=== PATIENT | female | born 1950 | race Caucasian/White ===

== ENCOUNTER 2016-07-24 12:48 | Observation (INO) | payer OTHER ==
--- NOTE | 2016-07-24 13:50 | ER Document Report ---
ED Medical Screen (RME) - General Mode of Arrival: Ambulatory Information source: Patient TRAVEL OUTSIDE OF THE [place] IN LAST 30 DAYS: No - HPI Patient complains to provider of: Chest pain Onset: Yesterday Associated Symptoms: Other - see notes above - Related Data Smoking: Non-smoker Frequency of alcohol use: None Drug Abuse: None <FRANCHESCA MARC - Last Filed: 07/24/16 14:38> <DIRK HUANG - Last Filed: 07/24/16 20:53> - General Chief Complaint: Chest Pain Stated Complaint: CHEST PAIN Time Seen by Provider: 07/24/16 13:42 Notes: 65-year-old female with history of atrial fibrillation, pleurisy, diabetes, and hypertension presents to the ED complaining of dull constant chest pain that started yesterday morning. Later in the day, the chest pain resolved, but the patient became 'gassy'. Towards later in the evening, the patient developed mild chest discomfort. She explains that last night her chest pain was exacerbated when laying down and with deep breathing. She woke up this morning with increasing chest pain and decided to come to the ED. Patient denies nausea or vomiting. Patient is on Xarelto. Patient has family history of cardiac disease. (FRANCHESCA MARC) - Related Data Allergies/Adverse Reactions: povidone-iodine [From Betadine] Adverse Reaction (Verified 07/24/16 13:33) soap [From Betadine] Adverse Reaction (Verified 07/24/16 13:33) Past Medical History - General Information source: Patient - Social History Family history: Other - Cardiac disease - Past Medical History Cardiac Medical History: Reports: Hx Atrial Fibrillation, Hx Hypertension, Other - Pleurisy Endocrine Medical History: Reports: Hx Diabetes Mellitus Type 2 Renal/ Medical History: Denies: Hx Peritoneal Dialysis <FRANCHESCA MARC - Last Filed: 07/24/16 14:38> Review of Systems - Review of Systems Constitutional: No symptoms reported EENT: No symptoms reported Cardiovascular: See HPI, Chest pain Respiratory: No symptoms reported Gastrointestinal: No symptoms reported. denies: Nausea, Vomiting Genitourinary: No symptoms reported Female Genitourinary: No symptoms reported Musculoskeletal: No symptoms reported Skin: No symptoms reported Hematologic/Lymphatic: No symptoms reported Neurological/Psychological: No symptoms reported -: Yes All other systems reviewed and negative <FRANCHESCA MARC - Last Filed: 07/24/16 14:38> Physical Exam - General General appearance: Alert In distress: None - Respiratory Respiratory status: No respiratory distress Breath sounds: Normal Chest palpation: Tender - Lower sternum is tender to palpate. Upper sternum is non tender.. No: Normal - Cardiovascular Rhythm: Regular Heart sounds: Normal auscultation Murmur: No Friction rub: No Gallop: None auscultated - Abdominal Inspection: Obese <FRANCHESCA MARC - Last Filed: 07/24/16 14:38> Course - Laboratory Result Diagrams: 07/24/16 18:38 07/24/16 15:55 <DIRK HUANG - Last Filed: 07/24/16 20:53> - Vital Signs Vital signs: Temp Pulse Resp BP Pulse Ox 98.5 F 79 16 134/77 H 97 07/24/16 13:17 07/24/16 13:17 07/24/16 20:06 07/24/16 20:06 07/24/16 20:06 - Laboratory Laboratory results interpreted by me: 07/24/16 07/24/16 15:55 18:38 WBC 15.7 H Absolute Neutrophils 10.4 H Absolute Monocytes 1.7 H ESR 39 H Glucose 116 H Creatine Kinase 25 L C-Reactive Protein 74.8 H Scribe Documentation - Scribe Written by Yumiko:: Yumiko Parrish, 07/24/2016 1448 acting as scribe for :: Urbano <FRANCHESCA MARC - Last Filed: 07/24/16 14:38>
[2016-07-24] MEDS ORDERED: ASPIRIN 81 MG TABLET, CHEWABLE PO ONE (13:51)
--- NOTE | 2016-07-24 16:25 | RADIOLOGY REPORT (SQ) ---
EXAM DESCRIPTION: CHEST SINGLE VIEW COMPLETED DATE/TIME: 07/24/2016 4:13 pm REASON FOR STUDY: chest pain COMPARISON: None. EXAM PARAMETERS: NUMBER OF VIEWS: One view. TECHNIQUE: Single frontal radiographic view of the chest acquired. RADIATION DOSE: NA LIMITATIONS: None. FINDINGS: LUNGS AND PLEURA: No opacities, masses or pneumothorax. No pleural effusion. MEDIASTINUM AND HILAR STRUCTURES: No masses. Contour normal. HEART AND VASCULAR STRUCTURES: Heart normal in size. Normal vasculature. BONES: No acute findings. HARDWARE: None in the chest. OTHER: No other significant finding. IMPRESSION: NO ACUTE RADIOGRAPHIC FINDING IN THE CHEST. TECHNICAL DOCUMENTATION: JOB ID: [id number]
[2016-07-24 16:34] LABS: ALANINE AMINOTRANSFERASE 19 U/L (9-52); ALBUMIN 4.1 g/dL (3.5-5.0); ALKALINE PHOSPHATASE 89 U/L (38-126); ANION GAP 13 (5-19); ASPARTATE AMINO TRANSFERASE 19 U/L (14-36); BILIRUBIN,DIRECT 0.3 mg/dL (0.0-0.4); BILIRUBIN,TOTAL 0.8 mg/dL (0.2-1.3); BLOOD UREA NITROGEN 15 mg/dL (7-20); C-REACTIVE PROTEIN 74.8 mg/L (<10.0); CALCIUM 9.8 mg/dL (8.4-10.2); CARBON DIOXIDE 25 mmol/L (22-30); CHLORIDE 100 mmol/L (98-107); CREATINE KINASE 25 U/L (30-135); CREATININE RESULT 0.74 mg/dL (0.52-1.25); GLUCOSE 116 mg/dL (75-110); POTASSIUM 4.1 mmol/L (3.6-5.0); TOTAL PROTEIN 7.8 g/dL (6.3-8.2)
[2016-07-24 16:45] LABS: CREATINE KINASE MB < 0.22 ng/mL (<4.55); TROPONIN I < 0.012 ng/mL
[2016-07-24] MEDS ORDERED: NITROGLYCERIN 0.4 MG/TAB 25 TAB/BOTTLE SL ONE (17:38)
--- NOTE | 2016-07-24 17:38 | ER Document Report ---
ED General - General Chief Complaint: Chest Pain Stated Complaint: CHEST PAIN Time Seen by Provider: 07/24/16 13:42 Mode of Arrival: Ambulatory Information source: Patient Notes: This is a 65-year-old female with multiple medical problems to include diabetes , hypertension, A. fib who presents with chest pain. She states that her chest pain began last night. She describes it as a dull ache in the center of her chest. No radiation. No shortness of breath. She denies nausea or vomiting. She states the pain is somewhat worse when she lays down and somewhat worse when she takes a deep breath. She denies a prior history of chest pain. She states that she had a stress test many many years ago. Recent fevers or chills. No recent cough or congestion. TRAVEL OUTSIDE OF THE [place] IN LAST 30 DAYS: No - Related Data Allergies/Adverse Reactions: povidone-iodine [From Betadine] Adverse Reaction (Verified 07/24/16 13:33) soap [From Betadine] Adverse Reaction (Verified 07/24/16 13:33) Past Medical History - General Information source: Patient - Social History Smoking Status: Unknown if Ever Smoked Frequency of alcohol use: None Drug Abuse: None Family History: Reviewed & Not Pertinent Patient has suicidal ideation: No Patient has homicidal ideation: No - Past Medical History Cardiac Medical History: Reports: Hx Atrial Fibrillation, Hx Hypertension, Other - Pleurisy Endocrine Medical History: Reports: Hx Diabetes Mellitus Type 2 Renal/ Medical History: Denies: Hx Peritoneal Dialysis Physical Exam - Vital signs Vitals: Temp Pulse Resp BP Pulse Ox 98.5 F 79 20 133/93 H 96 07/24/16 13:17 07/24/16 13:17 07/24/16 13:17 07/24/16 13:17 07/24/16 13:17 - Notes Notes: PHYSICAL EXAMINATION: GENERAL: Well-appearing, morbidly obese adult female, pleasant and conversant and in no acute distress. HEAD: Atraumatic, normocephalic. EYES: Pupils equal round and reactive to light, extraocular movements intact, sclera anicteric, conjunctiva are normal. ENT: nares patent, oropharynx clear without exudates. Moist mucous membranes. NECK: Normal range of motion, supple without lymphadenopathy LUNGS: Breath sounds clear to auscultation bilaterally and equal. No wheezes rales or rhonchi. HEART: Regular rate and rhythm without murmurs ABDOMEN: Soft, nontender, normoactive bowel sounds. No guarding, no rebound. No masses appreciated. EXTREMITIES: 2+ BLE edema, symmetric, pt states baseline NEUROLOGICAL: Cranial nerves grossly intact. Normal speech,no gross focal motor or sensory deficits noted PSYCH: Normal mood, normal affect. SKIN: Warm, Dry, normal turgor Course - Re-evaluation Re-evalutation: 07/24/16 21:36 Patient has 2 negative troponins and her chest pain appears atypical, however she had significant improvement in symptoms with nitroglycerin and has multiple risk factors, so will observe overnight. Discussed with hospitalist, Dr. Diggs. - Vital Signs Vital signs: Temp Pulse Resp BP Pulse Ox 98.5 F 79 20 140/72 H 96 07/24/16 22:50 07/24/16 13:17 07/24/16 22:41 07/24/16 22:41 07/24/16 22:41 - Laboratory Result Diagrams: 07/24/16 18:38 07/24/16 15:55 Laboratory results interpreted by me: 07/24/16 07/24/16 15:55 18:38 WBC 15.7 H Absolute Neutrophils 10.4 H Absolute Monocytes 1.7 H ESR 39 H Glucose 116 H Creatine Kinase 25 L C-Reactive Protein 74.8 H - Diagnostic Test Radiology reviewed: Reports reviewed - CXR: no acute process Discharge - Discharge Clinical Impression: Chest pain Qualifiers: Chest pain type: unspecified Qualified Code(s): R07.9 - Chest pain, unspecified Condition: Stable Disposition: ADMITTED OBSERVATION Admitting Provider: Hospitalist - Dr. Diggs Unit Admitted: Telemetry
[2016-07-24] MEDS ORDERED: NITROGLYCERIN 0.4 MG/TAB 25 TAB/BOTTLE SL PRN (18:20)
[2016-07-24 19:03] LABS: ABSOLUTE BASOPHILS # (AUTO) 0.1 10^3/uL (0.0-0.2); ABSOLUTE EOSINOPHILS # (AUTO) 0.1 10^3/uL (0.0-0.6); ABSOLUTE LYMPHOCYTES (AUTO) 3.3 10^3/uL (0.5-4.7); ABSOLUTE MONOCYTES (AUTO) 1.7 10^3/uL (0.1-1.4); ABSOLUTE NEUT (AUTO) 10.4 10^3/uL (1.7-8.2); BASOPHILS % (AUTO) 0.7 % (0-2); EOSINOPHILS % (AUTO) 0.4 % (0-6); HEMATOCRIT 42.3 % (36.0-47.0); HEMOGLOBIN 13.7 g/dL (12.0-15.5); HGB HCT DIFFERENCE -1.2; LYMPHOCYTES % (AUTO) 21.2 % (13-45); MEAN CORPUSCULAR HEMOGLOBIN 31.1 pg (27.0-33.4); MEAN CORPUSCULAR HGB CONC 32.5 g/dL (32.0-36.0); MEAN CORPUSCULAR VOLUME 96 fl (80-97); MONOCYTES % (AUTO) 10.9 % (3-13); RED CELL DISTRIBUTION WIDTH 13.5 % (11.5-14.0); SEGMENTED NEUTROPHILS % (AUTO) 66.8 % (42-78); WHITE BLOOD COUNT 15.7 10^3/uL (4.0-10.5)
[2016-07-24 19:48] LABS: ERYTHROCYTE SEDIMENTATION RATE 39 mm/hr (0-30)
[2016-07-24] MEDS ORDERED: MORPHINE SULFATE 10 MG/ML INJ IV ONE (21:32)
[2016-07-25] MEDS ORDERED: DEXTROSE 40% GEL 15 GM TUBE PO PRN ×2 (02:37)
[2016-07-25] MEDS ORDERED: DEXTROSE 50%-WATER 25 GM/50 ML DISP.SYRIN IV PRN ×2 (02:37)
[2016-07-25] MEDS ORDERED: INSULIN LISPRO 100 UNIT/ML 3 ML VIAL SUBCUT PRN (02:37)
[2016-07-25] MEDS ORDERED: GLUCAGON,HUMAN RECOMB 1 MG INJ IM PRN (02:37)
[2016-07-25] MEDS ORDERED: MAG HYDROX/AL HYDROX/SIMETH SUSP 30 ML UDCUP PO PRN (02:39)
[2016-07-25] MEDS ORDERED: ACETAMINOPHEN 325 MG TABLET PO PRN (02:44)
--- NOTE | 2016-07-25 03:00 | PDOC H&P ---
History of Present Illness Admission Date/PCP: 07/24/16 21:[address] Adeel [facility]/EP Dr. Martino Patient complains of: chest pain History of Present Illness: ANNMARIE ATKINS is a 65 year old morbidly obese [id number] diabetic female, also with underlying steroid-dependent arthritis, hypertension, paroxysmal atrial fibrillation, on Xarelto for same, and gout who presents to the emergency room for evaluation of above complaint. Patient has been discussed with emergency room physician who evaluated the patient. She describes approximately a 36-48 hour history of mild dull aching substernal central chest discomfort, without radiation or shortness of breath. Pain seems to increase with deep breathing and with certain movements, particularly if she lays on her side. She did achieve some relief with a single sublingual nitroglycerin. She has had no associated nausea vomiting, fever or chills, diarrhea or dysuria. No recent cough or congestion States she had similar discomfort when she had pleurisy as a child. No previous myocardial infarction or congestive heart failure. No history of pulmonary embolus or DVT. No recent long trip with prolonged inactivity, or unusual lower extremity swelling or tenderness. Negative stress test many years ago. Currently resting quietly, still with the above-noted dull chest discomfort. Laboratory results are listed in [employer] and are reviewed. X-ray summary results are listed below, with full report(s) reviewed. . EKGs reviewed. No prior tracings available for comparison. Social history/personal habits: . Lives alone. 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 No use of alcohol tobacco or illicit drugs. Allergies/adverse reactions are listed in [employer] and are reviewed. Home medications initially autopopulated into [employer] may not accurately reflect patient's true medications, dosages, and/or frequencies. biomedical engineering technologist to reconcile medications. Unfortunately, patient not certain of all medications/dosages/frequencies. REVIEW OF SYSTEMS: Constitutional: No fever or chills. Eyes: Glasses ENT: No swallowing problems or complaints. Denies hearing loss. Pulmonary: No current complaints. Cardiovascular: See history and present illness. Gastrointestinal: No current complaints, including nausea or vomiting. Skin: No current complaints, including rashes. Hematologic: Easy bruising. Neurologic: No current complaints, including numbness or tingling. Musculoskeletal: Joint pain from arthritis. Psychiatric: Denies anxiety or depression. Endocrine: No current complaints, including polyuria. Genitourinary: No current complaints, including dysuria. PHYSICAL EXAMINATION: 5 feet 4 inches tall. 151 kg. BMI 57.1 kg/m.Temperature 98.5. Blood pressure 140/72. Pulse 79 and regular. Respirations are 20 and unlabored. 96 % saturation on room air. Morbidly obese otherwise well-developed female appearing a bit younger than her stated age. Pleasant awake alert and cooperative. Appears to feel a bit under the weather, so to speak. Mildly anxious, without agitation. Female floor nurse Domenic is present. Skin is warm and dry. No grossly obvious evidence of rash in areas of skin examined. No subcutaneous nodules palpated. ENT: Hearing grossly normal to normal conversation. Tongue midline on protrusion pink and slightly tacky. Eyes: No scleral icterus. Pupils equal and reactive to light at 4 mm. [place] conjunctivae. Neck is supple and nontender to gentle active range of motion and palpation. Midline trachea. No palpable thyroid nodule mass enlargement or tenderness. Lymphatic: No palpable cervical or clavicular nodes. Neck and lymphatic exams limited by patient body habitus. Psychiatric: Reasonable insight into acute and chronic medical issues. Oriented to time location and why here. Lungs: Auscultation reveals clear and equal breath sounds bilaterally. No use of accessory respiratory muscles. Cardiovascular: Heart regular rate and rhythm, without gallop murmur or rub. No carotid or abdominal aortic bruits. No ankle or pedal edema. Faintly palpable posterior tibial pulses. Abdomen:soft quite obese nontender with positive bowel sounds. Unable to adequately evaluate abdomen for masses or organomegaly due to body habitus. Compression of upper abdomen has no effect on her chest discomfort. However, compression of her central sternum does seem to exacerbate her mild chest discomfort, along with deep breathing, and when patient moved from a seated to a supine position. Extremities: Feet are warm and dry. No calf tenderness to compression. No grossly obvious visual evidence of calf swelling. Gentle manipulation of lower extremities fails to reveal any obvious evidence of injury or instability to knees hips or ankles. Neurologic: Moves upper extremities grossly normally. Patellar reflexes absent. Absent Babinski. Light touch is intact at feet. Dorsiflexion and plantarflexion of feet 5 / 5 and symmetric. Past Medical History Cardiac Medical History: Reports: Atrial Fibrillation, Hypertension Denies: Congestive Heart Failure, DVT, Myocardial Infarction, Hyperlipidema, Pulmonary Embolism Pulmonary Medical History: Reports: Other - Pleurisy as a child Denies: Asthma, Chronic Obstructive Pulmonary Disease (COPD), Sleep Apnea EENT Medical History: Reports: Eyes - Glasses Denies: Ears, Throat Neurological Medical History: Denies: Hemorrhagic CVA, Ischemic CVA, Seizures Endocrine Medical History: Reports: Diabetes Mellitus Type 2 Denies: Hyperthyroidism, Hypothyroidism Renal/ Medical History: Reports: None GI Medical History: Denies: Cirrhosis, Gastroesophageal Reflux Disease, Hepatitis, Peptic Ulcer Disease Musculoskeltal Medical History: Reports: Arthritis - Steroid-dependent, Gout Skin Medical History: Reports: None Psychiatric Medical History: Denies: Alcohol Dependency, Depression, General Anxiety Disorder, Substance Abuse, Tobacco Dependency Hematology: Reports: Other - Easy bruising Infectious Medical History: Denies: Clostridium Difficile, Hepatitis B, Hepatitis C, Methicillin- Resistant Staph Aureus Past Surgical History Past Surgical History: Reports: Cholecystectomy Social History Information Source: Patient, Emergency Med Personnel, [facility] Records Lives with: Alone Smoking Status: Unknown if Ever Smoked Frequency of Alcohol Use: None Hx Recreational Drug Use: No Drugs: None Hx Prescription Drug Abuse: No - Advance Directive Resuscitation Status: Full Code Surrogate healthcare decision maker:: Friends Family History Family History: Reviewed & Not Pertinent Parental Family History Reviewed: Yes - Father of old age; mother of NH at 55; rheumatic fever as child. Children Family History Reviewed: NA Sibling(s) Family History Reviewed.: Yes - Uncertain health status Medication/Allergy Home Medications: Cyclobenzaprine HCl [Flexeril 10 mg Tablet] 10 mg PO Q8HP PRN #5 tablet Digoxin 125 mcg PO DAILY 07/25/16 Diltiazem HCl [Diltiazem 24Hr ER] 180 mg PO BID 07/25/16 Febuxostat [Uloric 80 mg Tablet] 80 mg PO QPM 07/25/16 Folic Acid 1 mg PO DAILY 07/25/16 Furosemide 20 mg PO DAILY 07/25/16 Magnesium Oxide 400 mg PO QPM 07/25/16 Metformin HCl 500 mg PO BID 07/25/16 Potassium Chloride [Klor-Con M20] 20 meq PO QPM 07/25/16 Prednisone 15 mg PO DAILY 07/25/16 Rivaroxaban [Xarelto] 20 mg PO QPM 07/25/16 Sotalol HCl [Sotalol] 160 mg PO BID 07/25/16 Tramadol HCl 50 mg PO BID 07/25/16 Allergies/Adverse Reactions: povidone-iodine [From Betadine] Adverse Reaction (Verified 07/24/16 13:33) soap [From Betadine] Adverse Reaction (Verified 07/24/16 13:33) Physical Exam Vital Signs: Temp Pulse Resp BP Pulse Ox 98.5 F 108 H 20 140/72 H 96 07/24/16 22:50 07/25/16 02:27 07/24/16 22:41 07/24/16 22:41 07/24/16 22:41 Results Impressions: Chest X-Ray 07/24/16 13:51 IMPRESSION: NO ACUTE RADIOGRAPHIC FINDING IN THE CHEST. Assessment & Plan - Diagnosis (1) Elevated C-reactive protein (CRP) Is this a current diagnosis for this admission?: Yes (2) Elevated erythrocyte sedimentation rate Is this a current diagnosis for this admission?: Yes (3) Precordial chest pain Is this a current diagnosis for this admission?: YesPlan: Likely this is musculoskeletal in origin, but with her multiple risk factors, Patient will be placed in observation bed under chest pain protocol. Patient understands to notify staff should chest pain change, in particular character or location of pain. Serial troponin . Repeat EKG. lipid panel. I have strongly encouraged patient to be careful getting out of bed, to avoid a fall with injury. Knee high SCDs for DVT prophylaxis.; With patient on Xarelto, no need for Lovenox or heparin. Impression and plans were discussed with patient, who concurs. Time spent in evaluation and management of patient: 67 minutes. (4) Anticoagulated Is this a current diagnosis for this admission?: YesPlan: Resume home medications as appropriate once these have been determined and reviewed. (5) Arthritis Is this a current diagnosis for this admission?: YesPlan: Resume home medications as appropriate once these have been determined and reviewed. (6) Diabetes mellitus type 2 in obese Is this a current diagnosis for this admission?: YesPlan: Diabetic cardiac diet. Accu-Cheks with appropriate sliding scale coverage. Resume home medications as appropriate once these have been determined and reviewed. (7) Gout Qualifiers: Gout site: unspecified site Gout etiology: unspecified cause Chronicity: chronic Presence of tophus: without tophus Qualified Code (s): M1A.9XX0 - Chronic gout, unspecified, without tophus (tophi) Is this a current diagnosis for this admission?: YesPlan: Resume home medications as appropriate once these have been determined and reviewed. (8) HTN (hypertension) Qualifiers: Hypertension type: essential hypertension Qualified Code(s): I10 - Essential (primary) hypertension Is this a current diagnosis for this admission?: YesPlan: Resume home medications as appropriate once these have been determined and reviewed. (9) Paroxysmal atrial fibrillation Is this a current diagnosis for this admission?: YesPlan: Resume home medications as appropriate once these have been determined and reviewed. (10) Steroid dependent Is this a current diagnosis for this admission?: YesPlan: Resume home medications as appropriate once these have been determined and reviewed.
[2016-07-25 06:00] LABS: APPEARANCE,URINE SLIGHTLY-CLOUDY; BILIRUBIN,URINE NEGATIVE (NEGATIVE); GLUCOSE, URINE NEGATIVE (NEGATIVE); KETONES,URINE NEGATIVE (NEGATIVE); LEUKOCYTE ESTERASE,URINE SMALL (NEGATIVE); NITRITE,URINE POSITIVE (NEGATIVE); PROTEIN,URINE NEGATIVE (NEGATIVE); URINE SPECIFIC GRAVITY 1.019; UROBILINOGEN,URINE NEGATIVE mg/dL (<2.0)
--- NOTE | 2016-07-25 08:30 | EKG REPORT ---
SEVERITY:- ABNORMAL ECG - SINUS RHYTHM LEFT ANTERIOR FASCICULAR BLOCK : Confirmed by: Krupa Zamorano 25-Jul-2016 08:29:37
--- NOTE | 2016-07-25 08:30 | EKG REPORT ---
SEVERITY:- ABNORMAL ECG - SINUS RHYTHM PROBABLE LEFT ATRIAL ABNORMALITY LEFT VENTRICULAR HYPERTROPHY BORDERLINE ST ELEVATION, INFERIOR LEADS : Confirmed by: Krupa Zamorano 25-Jul-2016 08:29:53
--- NOTE | 2016-07-25 08:30 | EKG REPORT ---
SEVERITY:- ABNORMAL ECG - ATRIAL FIBRILLATION, V-RATE 113-181 BORDERLINE LEFT AXIS DEVIATION NONSPECIFIC T ABNORMALITIES, LATERAL LEADS PROLONGED QT INTERVAL : Confirmed by: Krupa Zamorano 25-Jul-2016 08:29:30
[2016-07-25 08:52] LABS: ABSOLUTE BASOPHILS # (AUTO) 0.1 10^3/uL (0.0-0.2); ABSOLUTE EOSINOPHILS # (AUTO) 0.2 10^3/uL (0.0-0.6); ABSOLUTE LYMPHOCYTES (AUTO) 3.1 10^3/uL (0.5-4.7); ABSOLUTE MONOCYTES (AUTO) 1.2 10^3/uL (0.1-1.4); ABSOLUTE NEUT (AUTO) 8.1 10^3/uL (1.7-8.2); BASOPHILS % (AUTO) 0.7 % (0-2); EOSINOPHILS % (AUTO) 1.6 % (0-6); HEMATOCRIT 40.5 % (36.0-47.0); HEMOGLOBIN 13.4 g/dL (12.0-15.5); HGB HCT DIFFERENCE -0.3; LYMPHOCYTES % (AUTO) 24.1 % (13-45); MEAN CORPUSCULAR HEMOGLOBIN 31.3 pg (27.0-33.4); MEAN CORPUSCULAR VOLUME 95 fl (80-97); MONOCYTES % (AUTO) 9.3 % (3-13); RED BLOOD COUNT 4.28 10^6/uL (3.72-5.28); RED CELL DISTRIBUTION WIDTH 13.9 % (11.5-14.0); SEGMENTED NEUTROPHILS % (AUTO) 64.3 % (42-78); WHITE BLOOD COUNT 12.7 10^3/uL (4.0-10.5)
[2016-07-25 09:02] LABS: CHOLESTEROL 161.64 mg/dL (0-200); Direct HDL 44 mg/dL (>40); TRIGLYCERIDES 207 mg/dL (<150)
[2016-07-25 09:13] LABS: DIRECT LDL 72 mg/dL (<100)
[2016-07-25 09:15] LABS: VLDL CHOLESTEROL 41.4 mg/dL (10-31)
[2016-07-25] MEDS ORDERED: ASPIRIN 81 MG TABLET, ENT COATED PO SCH (10:00)
[2016-07-25] MEDS ORDERED: DOCUSATE SODIUM 100 MG CAPSULE PO SCH (10:00)
[2016-07-25] MEDS ORDERED: CYCLOBENZAPRINE HCL 10 MG TABLET PO PRN (10:14)
[2016-07-25] MEDS ORDERED: (PENDING PHARMACY ID) (Diltiazem Hcl [Diltiazem 24hr Er] 180 MG) PO SCH (10:15)
[2016-07-25] MEDS ORDERED: DILTIAZEM HCL 180 MG CAPSULE.CR PO ONE (11:00)
[2016-07-25] MEDS ORDERED: FUROSEMIDE 20 MG TABLET PO ONE (11:00)
[2016-07-25] MEDS ORDERED: DIGOXIN 0.125 MG TABLET PO ONE (11:00)
[2016-07-25] MEDS ORDERED: SOTALOL HCL 80 MG TABLET PO ONE (11:00)
[2016-07-25 11:44] VITALS: BP 106/68
--- NOTE | 2016-07-25 16:54 | DISCHARGE SUMMARY E ---
Discharge Summary NAME: ANNMARIE ATKINS : 1950 AGE: 65Y ADMITTED: 07/25/2016 DISCHARGED: 07/25/2016 CODE STATUS: FULL CODE. PRIMARY CARE PROVIDER: Dr. Adeel Gil OUTPATIENT JEWELRY INTERNSHIP: Dr. Martino DISCHARGE DIAGNOSES: 1. Chest pain, most likely musculoskeletal in origin. 2. Chronic atrial fibrillation. 3. Diabetes mellitus, type 2. 4. Chronic anticoagulation. 5. Hypertension. 6. Steroid dependent osteoarthritis. DISCHARGE MEDICATIONS: 1. Flexeril 10 mg p.o. q.8 h. p.r.n., 5 tablets, 0 refills. 2. Digoxin 125 mcg p.o. daily. 3. Diltiazem ER 180 mg p.o. b.i.d. 5. Uloric 80 mg p.o. q.p.m. 6. Folic acid 1 mg p.o. daily. 7. Lasix 20 mg p.o. daily. 8. Magnesium oxide 400 mg p.o. q.p.m. 9. Metformin 500 mg p.o. b.i.d. 10. Potassium chloride 20 mEq p.o. q.p.m. 11. Prednisone 50 mg p.o. daily. 12. Xarelto 20 mg p.o. q.p.m. 13. Sotalol 160 mg p.o. b.i.d. 14. Tramadol 50 mg p.o. b.i.d. DIET: Heart healthy. ACTIVITY: As tolerated. A note has been provided for the patient to return to work on Friday. DIAGNOSTICS: Lab values are as follows: Hematology obtained on 07/25/2016: WBC 12.7, hemoglobin 13.4, hematocrit 40.5, platelet count 365,000. Chemistry obtained on 07/25/2016: Sodium 138, potassium 4.1, chloride 100, carbon dioxide 25, BUN 15, creatinine 0.74, glucose 116, calcium 9.8, bilirubin 0.8, AST 19, ALT 19, alkaline phosphatase 89, CK 25, CK-MB 0.22, troponin 0.012, C-reactive protein 74, total protein 7.8, albumin 4.1, triglycerides 207, cholesterol 161, LDL 72, VLDL 41, HDL 44. Urinalysis obtained on 07/25/2016: Color yellow, appearance slightly cloudy, , specific gravity 1.019, protein negative, glucose negative, ketone negative, occult blood small, nitrate positive, bilirubin negative, urobilinogen negative, leukocyte esterase small, wbc's 30. Toxicology obtained on 07/25/2016: Dig ox is 0.74. Chest x-ray obtained on 07/24/2016 reveals no acute radiographic findings of the chest. PHYSICAL EXAMINATION: GENERAL: On examination the patient is a well-developed, well-nourished, 65-year-old female who is awake, alert and oriented to person, place, time, and situation. She is verbal, conversational, ambulatory, does not appear to be in any acute distress. VITAL SIGNS: As follows: Temperature is 98.7, pulse 109, respirations 20, blood pressure 106/68, oxygen saturation is 100% on room air. SKIN: Warm and dry. No rash. Not diaphoretic. HEENT: Pupils equal, round and reactive to light and accommodation. Conjunctivae pink. NECK: There is no JVP. CARDIOVASCULAR: Heart is irregularly irregular. There is no rub. CHEST: Diminished, clear, symmetrical. ABDOMEN: Obese, soft. Bowel sounds present. BACK: No CVA tenderness, sacral edema. EXTREMITIES: No clubbing, cyanosis, or edema. PSYCHIATRIC: Appropriate affect. Pleasant mood. HISTORY OF PRESENT ILLNESS: The patient is a 65-year-old morbidly obese female with a past medical history of diabetes mellitus type 2, as well as steroid dependence. The patient presented to the emergency department with a chief complaint of chest pain. The patient described a 36-48 hour history of mild, dull, aching, substernal, central chest discomfort without radiation or shortness of breath. Patient seems to increase with deep breathing and with certain movements, particularly if she lies on her side. The patient states that her pain completely resolved with morphine. The patient had no associated nausea, vomiting, fever, chills, diarrhea, dysuria, no recent cough, congestion. The patient stated that she felt her symptoms were similar to when she had pleurisy as a child. The patient denied any myocardial infarction or CHF. No history of pulmonary embolism. The patient states she is compliant with all of her medications, including her anticoagulation. The patient is followed by Cardiology due to her atrial fibrillation and the patient was referred to the hospitalist for observation and management. HOSPITAL COURSE: Patient was observed in continuous telemetry unit. Serial cardiac enzymes were obtained, all of which were nonsuggestive. The patient remained afebrile. Blood pressures in a good range. The patient had no evidence on the ekg monitor tech that were outside of her typical AFib, other than some tachycardia. The patient also had no replication of symptoms. The patient feels that her pain was positional and felt that she probably slept wrong the night before. The patient responded to muscle relaxer. During this time, the patient was encouraged not to use her Ultram, given the muscle relaxer, and therefore, the patient is quite eager for discharge. DISCHARGE PLANNING: The patient is advised to follow up with her surgical technologist, Dr. Martino, within 1-2 weeks for hospital followup. TOTAL TIME SPENT: Time spent on this discharge including assessment, plan, physical examination, patient education, and significant review of records is 45 minutes. DICTATING PHYSICIAN: ROAUL DAWSON NP [id number] PHY#: [id number] ID: [id number] JOB#: [id number] ACCT: [id number] cc:JONATHAN MAHAN M.D. RAOUL DAWSON NP > MTDD
[2016-07-25] MEDS ORDERED: MAGNESIUM OXIDE 400 MG TABLET PO SCH (18:00)
[2016-07-25] MEDS ORDERED: POTASSIUM CHLORIDE 10 MEQ TABLET.SA PO SCH (18:00)
[2016-07-25] MEDS ORDERED: METFORMIN HCL 500 MG TABLET PO SCH (18:00)
[2016-07-25] MEDS ORDERED: RIVAROXABAN 10 MG TABLET PO SCH (18:00)
[2016-07-25] MEDS ORDERED: (PENDING PHARMACY ID) (Potassium Chloride [Klor-Con M20] 20 MEQ) PO SCH (18:00)
[2016-07-25] MEDS ORDERED: FEBUXOSTAT 80 MG TABLET PO SCH (18:00)
[2016-07-25] MEDS ORDERED: TRAMADOL HCL 50 MG TABLET PO SCH (22:00)
[2016-07-25] MEDS ORDERED: DILTIAZEM HCL 180 MG CAPSULE.CR PO SCH (22:00)
[2016-07-25] MEDS ORDERED: SOTALOL HCL 80 MG TABLET PO SCH (22:00)
[2016-07-26] MEDS ORDERED: FUROSEMIDE 20 MG TABLET PO SCH (10:00)
[2016-07-26] MEDS ORDERED: FOLIC ACID 1 MG TABLET PO SCH (10:00)
[2016-07-26] MEDS ORDERED: PREDNISONE 10 MG TABLET PO SCH (10:00)
[2016-07-26] MEDS ORDERED: DIGOXIN 0.125 MG TABLET PO SCH (10:00)
== END 2016-07-25 14:01 | disposition home or self-care (01) ==
LOC: ER 12:48 → EH 21:42 → UNDOADMOB 21:42 → EH 23:25 → 5 23:25 → EH 07-25 02:39 → 5 07-25 02:39
PROVIDERS: ADMIT Family Medicine; ATTEND Family Medicine
DX: R07.2 Precordial pain (principal); I48.2 Chronic atrial fibrillation; E11.9 Type 2 diabetes mellitus without complications; Z79.01 Long term (current) use of anticoagulants; I10 Essential (primary) hypertension; M19.90 Unspecified osteoarthritis, unspecified site; F19.20 Other psychoactive substance dependence, uncomplicated; E66.01 Morbid (severe) obesity due to excess calories; M10.9 Gout, unspecified; R70.0 Elevated erythrocyte sedimentation rate; R79.82 Elevated C-reactive protein (CRP); M1A.9XX0 Chronic gout, unspecified, without tophus (tophi); R60.0 Localized edema; Z87.09 Personal history of other diseases of the respiratory system; Z68.43 Body mass index [BMI] 50.0-59.9, adult; Z90.49 Acquired absence of other specified parts of digestive tract; Z82.49 Family history of ischemic heart disease and other diseases of the circulatory system; Z79.899 Other long term (current) drug therapy; Z79.84 Long term (current) use of oral hypoglycemic drugs
CPT/HCPCS: 93005 ×2; 99285; 96374; 36415 ×2; 82553; 82962; 82550; 80162; 85025 ×2; 85652; 86140; 80053; 81001; 84484 ×2; 80061; 71010; 93010 ×2; G0378; J3490 ×2; J2270

== ENCOUNTER 2019-08-04 12:43 | Inpatient (IN) | payer OTHER, MEDICARE ==
--- NOTE | 2019-08-04 13:37 | ER Document Report ---
ED Medical Screen (RME) - General Chief Complaint: Edema Stated Complaint: GENERAL WEAKNESS Time Seen by Provider: 08/04/19 13:33 Notes: This 68-year-old female presents to the emergency room today stating that she had swelling to her lower extremities and a large protrusion from her labia TRAVEL OUTSIDE OF THE [place] IN LAST 30 DAYS: No - Related Data Allergies/Adverse Reactions: digoxin Allergy (Verified 08/04/19 13:30) spironolactone Allergy (Verified 08/04/19 13:30) povidone-iodine [From Betadine] Adverse Reaction (Verified 07/24/16 13:33) soap [From Betadine] Adverse Reaction (Verified 07/24/16 13:33) Past Medical History - Social History Family history: Other - Cardiac disease - Past Medical History Cardiac Medical History: Reports: Hx Atrial Fibrillation, Hx Hypertension Denies: Hx Congestive Heart Failure, Hx DVT, Hx Heart Attack, Hx Hypercho lesterolemia, Hx Pulmonary Embolism Pulmonary Medical History: Denies: Hx Asthma, Hx COPD, Hx Sleep Apnea Neurological Medical History: Denies: Hx Seizures Endocrine Medical History: Reports: Hx Diabetes Mellitus Type 2. Denies: Hx Hyperthyroidism, Hx Hypothyroidism Renal/ Medical History: Denies: Hx Peritoneal Dialysis GI Medical History: Denies: Hx Cirrhosis, Hx Gastroesophageal Reflux Disease, Hx Hepatitis Musculoskeltal Medical History: Reports Hx Arthritis - Steroid-dependent, Reports Hx Gout Psychiatric Medical History: Denies: Hx Depression Infectious Medical History: Denies: Hx C-Diff, Hx Hepatitis, Hx MRSA Past Surgical History: Reports: Hx Cholecystectomy Physical Exam - Vital signs Vitals: Temp Pulse Resp BP Pulse Ox 98.1 F 72 20 131/53 H 94 08/04/19 13:03 08/04/19 13:03 08/04/19 13:03 08/04/19 13:03 08/04/19 13:03 Course - Vital Signs Vital signs: Temp Pulse Resp BP Pulse Ox 98.1 F 72 20 131/53 H 94 08/04/19 13:03 08/04/19 13:03 08/04/19 13:03 08/04/19 13:03 08/04/19 13:03
--- NOTE | 2019-08-04 15:08 | ER Document Report ---
ED General - General Chief Complaint: Edema Stated Complaint: GENERAL WEAKNESS Time Seen by Provider: 08/04/19 13:33 Mode of Arrival: Medic Information source: Patient Notes: Patient presents complaining of bilateral lower extremity edema for the past 5 days. Patient states she has had weeping wounds to the legs for the past 5 days as well. Patient also reports generalized decrease in strength and weakness. Patient states that she was attempting to ambulate to the bathroom and due to he r increased weakness she was concerned she may fall. Patient states she eased herself to the floor but after she was on the ground she was not able to get up. Patient states that on the floor she was incontinent of urine and stool that was a diarrhea bowel movement. Patient denies any fever. Patient states that she has had swelling to her labia for the past month that has gradually been getting larger. Patient also reports erythema to the bilateral lower extremities that started today. Patient states typically she does not have any difficulty in ambulating. Patient is concerned about her ability to care for herself at home. TRAVEL OUTSIDE OF THE [place] IN LAST 30 DAYS: No - HPI Onset: Other - 5 days Onset/Duration: Worse Quality of pain: Achy Pain Level: 3 Associated symptoms: Diarrhea. denies: Body/muscle aches, Chest pain, Nonproductive cough, Productive cough, Fever, Nausea, Vomiting, Shortness of breath Exacerbated by: Movement Relieved by: Denies Similar symptoms previously: No Recently seen / treated by doctor: No - Related Data Allergies/Adverse Reactions: digoxin Allergy (Verified 08/04/19 13:30) spironolactone Allergy (Verified 08/04/19 13:30) povidone-iodine [From Betadine] Adverse Reaction (Verified 07/24/16 13:33) soap [From Betadine] Adverse Reaction (Verified 07/24/16 13:33) Past Medical History - General Information source: Patient - Social History Smoking Status: Never Smoker Frequency of alcohol use: None Drug Abuse: None Lives with: Alone Family History: Reviewed & Not Pertinent Patient has homicidal ideation: No - Past Medical History Cardiac Medical History: Reports: Hx Atrial Fibrillation, Hx Hypertension Denies: Hx Congestive Heart Failure, Hx DVT, Hx Heart Attack, Hx Hypercholesterolemia, Hx Pulmonary Embolism Pulmonary Medical History: Denies: Hx Asthma, Hx COPD, Hx Sleep Apnea Neurological Medical History: Denies: Hx Seizures Endocrine Medical History: Reports: Hx Diabetes Mellitus Type 2. Denies: Hx Hyperthyroidism, Hx Hypothyroidism Renal/ Medical History: Denies: Hx Peritoneal Dialysis GI Medical History: Denies: Hx Cirrhosis, Hx Gastroesophageal Reflux Disease, Hx Hepatitis Musculoskeletal Medical History: Reports Hx Arthritis - Steroid-dependent, Reports Hx Gout Psychiatric Medical History: Denies: Hx Depression Infectious Medical History: Denies: Hx C-Diff, Hx Hepatitis, Hx MRSA Past Surgical History: Reports: Hx Cholecystectomy Review of Systems - Review of Systems Constitutional: Weakness. denies: Fever EENT: No symptoms reported Cardiovascular: No symptoms reported. denies: Chest pain, Dyspnea, Syncope Respiratory: No symptoms reported. denies: Cough, Short of breath Gastrointestinal: Diarrhea, Fecal incontinence. denies: Abdominal pain, Vomiting Genitourinary: Incontinence Female Genitourinary: No symptoms reported Musculoskeletal: Leg swelling, Ankle swelling. denies: Back pain Skin: Change in color - Erythema to bilateral lower extremities for the past day Hematologic/Lymphatic: No symptoms reported Neurological/Psychological: No symptoms reported Physical Exam - Vital signs Vitals: Temp Pulse Resp BP Pulse Ox 98.1 F 72 20 131/53 H 94 08/04/19 13:03 08/04/19 13:03 08/04/19 13:03 08/04/19 13:03 08/04/19 13:03 - General General appearance: Alert In distress: None - HEENT Head: Normocephalic, Atraumatic Eyes: Normal Nasal: Normal Mouth/Lips: Normal Mucous membranes: Normal Neck: Normal, Supple - Respiratory Respiratory status: No respiratory distress Chest status: Nontender Breath sounds: Normal. No: Rales, Rhonchi, Stridor, Wheezing Chest palpation: Normal - Cardiovascular Rhythm: Regular Heart sounds: S1 appreciated, S2 appreciated Murmur: No - Abdominal Inspection: Morbidly Obese Distension: No distension Bowel sounds: Normal Tenderness: Nontender - Back Back: Normal. No: CVA tenderness, Vertebra tenderness - Extremities General upper extremity: Normal inspection, Normal strength General lower extremity: Tender - Tenderness to right hip Ankle: Edema - 4+ edema Foot: Edema - 4+ edema - Neurological Neuro grossly intact: Yes [place] Coma Scale Eye Opening: Spontaneous [place] Coma Scale Verbal: Oriented [place] Coma Scale Motor: Obeys Commands [place] Coma Scale Total: 15 - Psychological Associated symptoms: Normal affect, Normal mood - Skin Skin Temperature: Warm Skin Moisture: Dry Skin Color: Erythema Skin irregularity: Erythema - Erythema to bilateral lower extremity, foot and ankle. Patient with open areas to right ankle, scattered areas weeping to bilateral lower extremities, Rash - Demarcated rash to the bilateral inguinal folds with small pustular lesions along margins. Irregularity with: Swelling, Tenderness, Inflammation, Weeping Course - Re-evaluation Re-evalutation: 08/04/19 16:[address] Dickinson, Dr Dickinson to bedside for exam. Advises consultation with hospitalist for admission for cellulitis. 08/04/19 16:27 Discussed results of diagnostic test with patient. Patient advised that admission is recommended this time. Patient is agreeable with this plan of care. Patient states that she does not feel that she can take care of herself at home. 08/04/19 16:[address] Gutierrez whondoes agree to come and evaluate patient for admission. - Vital Signs Vital signs: Temp Pulse Resp BP Pulse Ox 98.1 F 72 23 H 139/74 H 98 08/04/19 13:31 08/04/19 13:03 08/04/19 19:01 08/04/19 19:01 08/04/19 19:01 - Laboratory Result Diagrams: 08/04/19 14:30 08/04/19 14:30 Laboratory results interpreted by me: 08/04/19 08/04/19 08/04/19 14:30 14:30 14:30 WBC 15.2 H RDW 16.5 H Lymph % (Auto) 5.9 L Absolute Neuts (auto) 13.4 H Seg Neutrophils % 88.4 H ESR Sodium 133.9 L Chloride 94 L BUN 30 H Est GFR (MDRD) Non-Af 56 L Glucose 146 H Uric Acid Magnesium Alkaline Phosphatase 127 H C-Reactive Protein NT-Pro-B Natriuret Pep 189 H Urine Nitrite Ur Leukocyte Esterase 08/04/19 08/04/19 08/04/19 14:30 14:30 14:30 WBC RDW Lymph % (Auto) Absolute Neuts (auto) Seg Neutrophils % ESR 65 H Sodium Chloride BUN Est GFR (MDRD) Non-Af Glucose Uric Acid 9.4 H Magnesium 2.5 H Alkaline Phosphatase C-Reactive Protein 144.7 H NT-Pro-B Natriuret Pep Urine Nitrite Ur Leukocyte Esterase 08/04/19 15:15 WBC RDW Lymph % (Auto) Absolute Neuts (auto) Seg Neutrophils % ESR Sodium Chloride BUN Est GFR (MDRD) Non-Af Glucose Uric Acid Magnesium Alkaline Phosphatase C-Reactive Protein NT-Pro-B Natriuret Pep Urine Nitrite POSITIVE H Ur Leukocyte Esterase TRACE H - Diagnostic Test Radiology reviewed: Reports reviewed - EKG Interpretation by Me EKG shows normal: Sinus rhythm When compared to previous EKG there are: Changes noted Additional EKG results interpreted by me: 08/04/19 16:18 No acute ischemic changes, QTC 435, sinus rhythm with a rate of 63 Discharge - Discharge Clinical Impression: Weakness Cellulitis Qualifiers: Site of cellulitis: extremity Site of cellulitis of extremity: lower extremity Laterality: unspecified laterality Qualified Code(s): L03.119 - Cellulitis of unspecified part of limb UTI (urinary tract infection) Qualifiers: Urinary tract infection type: acute cystitis Hematuria presence: without hematuria Qualified Code(s): N30.00 - Acute cystitis without hematuria Condition: Stable Disposition: ADMITTED INPATIENT Admitting Provider: Matt (Hospitalist) Unit Admitted: Medical Floor
[2019-08-04 15:17] LABS: ABSOLUTE LYMPHOCYTES (AUTO) 0.9 10^3/uL (0.5-4.7); ABSOLUTE MONOCYTES (AUTO) 0.8 10^3/uL (0.1-1.4); ABSOLUTE NEUT (AUTO) 13.4 10^3/uL (1.7-8.2); BASOPHILS % (AUTO) 0.2 % (0-2); EOSINOPHILS % (AUTO) 0.1 % (0-6); HEMATOCRIT 42.9 % (36.0-47.0); HEMOGLOBIN 14.3 g/dL (12.0-15.5); LYMPHOCYTES % (AUTO) 5.9 % (13-45); MEAN CORPUSCULAR HEMOGLOBIN 31.1 pg (27.0-33.4); MEAN CORPUSCULAR HGB CONC 33.4 g/dL (32.0-36.0); MEAN CORPUSCULAR VOLUME 93 fl (80-97); MONOCYTES % (AUTO) 5.4 % (3-13); PLATELET COUNT 327 10^3/uL (150-450); RED BLOOD COUNT 4.62 10^6/uL (3.72-5.28); RED CELL DISTRIBUTION WIDTH 16.5 % (11.5-14.0); SEGMENTED NEUTROPHILS % (AUTO) 88.4 % (42-78); TOTAL CELLS COUNTED % (AUTO) 100 %; WHITE BLOOD COUNT 15.2 10^3/uL (4.0-10.5)
[2019-08-04 15:25] LABS: ALBUMIN 4.1 g/dL (3.5-5.0); ALKALINE PHOSPHATASE 127 U/L (38-126); ANION GAP 10 (5-19); ASPARTATE AMINO TRANSFERASE 33 U/L (14-36); BILIRUBIN,DIRECT 0.1 mg/dL (0.0-0.4); BILIRUBIN,TOTAL 0.5 mg/dL (0.2-1.3); BLOOD UREA NITROGEN 30 mg/dL (7-20); CALCIUM 9.6 mg/dL (8.4-10.2); CARBON DIOXIDE 30 mmol/L (22-30); CHLORIDE 94 mmol/L (98-107); GLUCOSE 146 mg/dL (75-110); POTASSIUM 4.4 mmol/L (3.6-5.0); TOTAL PROTEIN 7.7 g/dL (6.3-8.2)
[2019-08-04 15:26] LABS: APPEARANCE,URINE SLIGHTLY-CLOUDY; BILIRUBIN,URINE NEGATIVE (NEGATIVE); COLOR,URINE YELLOW; GLUCOSE, URINE NEGATIVE (NEGATIVE); KETONES,URINE NEGATIVE (NEGATIVE); LEUKOCYTE ESTERASE,URINE TRACE (NEGATIVE); NITRITE,URINE POSITIVE (NEGATIVE); PROTEIN,URINE NEGATIVE (NEGATIVE); UROBILINOGEN,URINE NEGATIVE mg/dL (<2.0)
[2019-08-04 15:37] LABS: NT PRO BNP 189 pg/mL (<125)
[2019-08-04] MEDS ORDERED: CEFTRIAXONE 1 GM/D5W RTU 1 GM/50 ML RTUPB IV ONE ×2 (15:43→19:00)
[2019-08-04 15:48] LABS: TROPONIN I < 0.012 ng/mL
[2019-08-04] MEDS ORDERED: CLINDAMYCIN 600 MG/D5W RTU 600 MG/50 ML RTUPB IV ONE ×2 (16:00→18:15)
--- NOTE | 2019-08-04 16:13 | RADIOLOGY REPORT (SQ) ---
EXAM DESCRIPTION: HIP RIGHT AP/LATERAL IMAGES COMPLETED DATE/TIME: 08/04/2019 3:53 pm REASON FOR STUDY: r hip pain COMPARISON: None. NUMBER OF VIEWS: Three views. TECHNIQUE: AP pelvis and additional frog-leg and frontal views of the right hip. LIMITATIONS: None. FINDINGS: MINERALIZATION: Normal. RIGHT HIP: No fracture or dislocation. No worrisome bone lesions. Mild degenerative changes are pre sent. LEFT HIP: No fracture or dislocation. No worrisome bone lesions. Mild degenerative changes are pres ent. PUBIS AND ISCHIUM: No fracture. PELVIS: No fracture. SACRUM: No fracture or dislocation. No worrisome bone lesions. LOWER LUMBAR SPINE: No fracture or dislocation. No worrisome bone lesions. No significant disc disea se. SOFT TISSUES: Likely dystrophic soft tissue calcification involving the left thigh or but talk. OTHER: No other significant finding. IMPRESSION: Mild degenerative changes are seen of the hips. No acute findings. TECHNICAL DOCUMENTATION: JOB ID: [id number] 2010 [employer] [place]- All Rights Reserved Reading location - IP/workstation name: MARY JANE
[2019-08-04] MEDS ORDERED: MAGNESIUM HYDROXIDE SUSP 30 ML UDCUP PO PRN (17:03)
[2019-08-04] MEDS ORDERED: IPRATROPIUM/ALBUTEROL 0.5-2.5 MG/3 ML AMPUL NEB PRN (17:03)
[2019-08-04] MEDS ORDERED: ONDANSETRON HCL INJ/PF 4 MG/2 ML SDV IV PRN (17:03)
[2019-08-04] MEDS ORDERED: PROMETHAZINE HCL INJ 25 MG/1 ML VIAL IV PRN (17:03)
[2019-08-04] MEDS ORDERED: OXYCODONE-ACETAMINOPHEN 5-325 MG TABLET PO PRN (17:03)
[2019-08-04] MEDS ORDERED: TEMAZEPAM 7.5 MG CAPSULE PO PRN (17:03)
[2019-08-04] MEDS ORDERED: METOPROLOL TARTRATE PF/INJ 5 MG/5 ML SDV IV PRN (17:10)
[2019-08-04] MEDS ORDERED: HYDRALAZINE HCL INJ/PF 20 MG/1 ML SDV IV PRN (17:10)
--- NOTE | 2019-08-04 17:35 | PDOC H&P ---
History of Present Illness History of Present Illness: ANNMARIE ATKINS is a 68 year old morbidly obese female past medical history of gout, A. fib anticoagulated, osteoarthritis steroid-dependent, hypertension, diabetes on metformin, bilateral lower extremity lymphedema, presenting to ED complaining of bilateral lower extremity below the knee erythema, pain and swelling starting Friday of the last week, as well as subjective fever, and nausea. Patient is morbidly obese with history of osteoarthritis but she is able to ambulate around the house, however recently due to worsening bilateral lower extremity edema she has not been that mobile and had to sleep in her recliner. Patient lives alone and has 2 cats denies any trauma to the lower extremity or any cat scratches, also complaining of urinary incontinence, dysuria and urgency. Denies any chest pain, shortness of breath, headache, vision changes, syncope or presyncope, lightheadedness, abdominal pain, vomiting, or constipation. In the ED she was noted to have neutrophilic leukocytosis and positive UA. Patient was started on empiric IV antibiotics and hospitalist consulted for admission. Past Medical History Cardiac Medical History: Reports: Atrial Fibrillation, Hypertension Denies: Congestive Heart Failure, DVT, Myocardial Infarction, Hyperlipidema, Pulmonary Embolism Pulmonary Medical History: Denies: Asthma, Chronic Obstructive Pulmonary Disease (COPD), Sleep Apnea Neurological Medical History: Denies: Seizures Endocrine Medical History: Reports: Diabetes Mellitus Type 2 Denies: Hyperthyroidism, Hypothyroidism GI Medical History: Denies: Cirrhosis, Gastroesophageal Reflux Disease, Hepatitis Musculoskeltal Medical History: Reports: Arthritis - Steroid-dependent, Gout Psychiatric Medical History: Denies: Depression Infectious Medical History: Denies: Clostridium Difficile, Methicillin-Resistant Staph Aureus Past Surgical History Past Surgical History: Reports: Cholecystectomy Social History Smoking Status: Never Smoker Frequency of Alcohol Use: None Hx Recreational Drug Use: No Drugs: None Hx Prescription Drug Abuse: No Family History Family History: Reviewed & Not Pertinent Parental Family History Reviewed: Yes Children Family History Reviewed: Yes Sibling(s) Family History Reviewed.: Yes Medication/Allergy Home Medications: Cyclobenzaprine HCl [Flexeril 10 mg Tablet] 10 mg PO Q8HP PRN #5 tablet 07/25/16 Digoxin 125 mcg PO DAILY 07/25/16 Diltiazem HCl [Diltiazem 24Hr ER (Cd)] 180 mg PO BID 07/25/16 Febuxostat [Uloric 80 mg Tablet] 80 mg PO QPM 07/25/16 Folic Acid 1 mg PO DAILY 07/25/16 Furosemide 20 mg PO DAILY 07/25/16 Magnesium Oxide 400 mg PO QPM 07/25/16 Metformin HCl 500 mg PO BID 07/25/16 Potassium Chloride [Klor-Con M20] 20 meq PO QPM 07/25/16 Prednisone 15 mg PO DAILY 07/25/16 Rivaroxaban [Xarelto] 20 mg PO QPM 07/25/16 Sotalol HCl [Sotalol] 160 mg PO BID 07/25/16 Tramadol HCl 50 mg PO BID 07/25/16 Allergies/Adverse Reactions: digoxin Allergy (Verified 08/04/19 13:30) spironolactone Allergy (Verified 08/04/19 13:30) povidone-iodine [From Betadine] Adverse Reaction (Verified 07/24/16 13:33) soap [From Betadine] Adverse Reaction (Verified 07/24/16 13:33) Review of Systems Review of Systems: as per hpi Physical Exam Vital Signs: Temp Pulse Resp BP Pulse Ox 98.1 F 72 23 H 131/53 H 99 08/04/19 13:31 08/04/19 13:03 08/04/19 14:53 08/04/19 13:03 08/04/19 15:17 Intake & Output 08/03/19 08/04/19 08/05/19 06:59 06:59 06:59 Weight 181.437 kg General appearance: PRESENT: no acute distress, morbidly obese Head exam: PRESENT: atraumatic, normocephalic Respiratory exam: PRESENT: clear to auscultation sandee. ABSENT: rales, rhonchi, wheezes Cardiovascular exam: PRESENT: RRR. ABSENT: diastolic murmur, rubs, systolic murmur GI/Abdominal exam: PRESENT: distended, normal bowel sounds, soft. ABSENT: guarding, mass, organolmegaly, rebound, tenderness Gentrourinary exam: PRESENT: other - Bilateral inguinal folds with a small pustular lesions. Neurological exam: PRESENT: alert, awake, oriented to person, oriented to place, oriented to time, oriented to situation, CN II-XII grossly intact. ABSENT: motor sensory deficit Skin exam: PRESENT: other - Bilateral lower extremity below the knee circumferential erythema extending to feet, scattered areas of weeping and two denuded blisters on the medial aspect of bilateral lower extremity at the knee level. Results Laboratory Results: 08/04/19 14:30 08/04/19 14:30 08/04/19 08/04/19 08/04/19 14:30 14:30 14:30 WBC 15.2 H RBC 4.62 Hgb 14.3 Hct 42.9 MCV 93 MCH 31.1 MCHC 33.4 RDW 16.5 H Plt Count 327 Seg Neutrophils % 88.4 H Sodium 133.9 L Potassium 4.4 Chloride 94 L Carbon Dioxide 30 Anion Gap 10 BUN 30 H Creatinine 0.99 Est GFR ( Amer) > 60 Glucose 146 H Calcium 9.6 Magnesium 2.5 H Total Bilirubin 0.5 AST 33 Alkaline Phosphatase 127 H Total Protein 7.7 Albumin 4.1 Lipase 101.5 Urine Color Urine Appearance Urine pH Ur Specific [place] Urine Protein Urine Glucose (UA) Urine Ketones Urine Blood Urine Nitrite Ur Leukocyte Esterase Urine WBC (Auto) Urine RBC (Auto) 08/04/19 15:15 WBC RBC Hgb Hct MCV MCH MCHC RDW Plt Count Seg Neutrophils % Sodium Potassium Chloride Carbon Dioxide Anion Gap BUN Creatinine Est GFR ( Amer) Glucose Calcium Magnesium Total Bilirubin AST Alkaline Phosphatase Total Protein Albumin Lipase Urine Color YELLOW Urine Appearance SLIGHTLY-CLOUDY Urine pH 5.0 Ur Specific [place] 1.020 Urine Protein NEGATIVE Urine Glucose (UA) NEGATIVE Urine Ketones NEGATIVE Urine Blood NEGATIVE Urine Nitrite POSITIVE H Ur Leukocyte Esterase TRACE H Urine WBC (Auto) 12 Urine RBC (Auto) 2 08/04/19 14:30 Troponin I < 0.012 NT-Pro-B Natriuret Pep 189 H Impressions: Hip/Pelvis X-Ray 08/04/19 15:06 IMPRESSION: Mild degenerative changes are seen of the hips. No acute findings. Assessment and Plan - Diagnosis (1) Cellulitis Qualifiers: Site of cellulitis: extremity Site of cellulitis of extremity: lower extremity Laterality: unspecified laterality Qualified Code(s): L03.119 - Cellulitis of unspecified part of limb Is this a current diagnosis for this admission?: Yes Plan: Bilateral lower extremity cellulitis below the knee extending to bilateral feet. Admit to floor, broad-spectrum empiric IV antibiotics, wound culture, blood culture, wound care, elevate bilateral lower extremities. (2) Morbid obesity with BMI of 60.0-69.9, adult Is this a current diagnosis for this admission?: Yes Plan: Super morbid obesity BMI of 68.7. We will obtain TSH. Diet and lifestyle modification recommended. (3) Paroxysmal atrial fibrillation Is this a current diagnosis for this admission?: Yes Plan: History of paroxysmal A. fib. Anticoagulated. On Xarelto, sotalol and diltiazem. Resume home meds. Monitor vitals. Outpatient PCP and cardiology follow-up. (4) Arthritis Is this a current diagnosis for this admission?: Yes Plan: History of severe bilateral lower extremity osteoarthritis. Consult PT. Resume home meds. Outpatient PCP follow-up. (5) HTN (hypertension) Qualifiers: Hypertension type: essential hypertension Qualified Code(s): I10 - Essential (primary) hypertension Is this a current diagnosis for this admission?: Yes Plan: Euvolemic. Normotensive. Resume home meds. Adjust meds as needed. PRN IV hydralazine. (6) Diabetes mellitus type 2 in obese Is this a current diagnosis for this admission?: Yes Plan: No A1c available. Home meds are metformin. We will obtain A1c. Diabetic diet. Basal, sliding scale and correctional insulin. Hypoglycemia protocol. Diabetic education. Hold oral antidiabetic. Resume home meds upon discharge. (7) Gout Qualifiers: Gout site: unspecified site Gout etiology: unspecified cause Chronicity: chronic Presence of tophus: without tophus Qualified Code(s): M1A.9XX0 - Chronic gout, unspecified, without tophus (tophi) Is this a current diagnosis for this admission?: Yes Plan: Does not appear to have any flare. Resume home meds. (8) UTI (urinary tract infection) Qualifiers: Urinary tract infection type: acute cystitis Hematuria presence: without hematuria Qualified Code(s): N30.00 - Acute cystitis without hematuria Is this a current diagnosis for this admission?: Yes Plan: Likely due to gram-negative rods including E. coli. Empiric IV antibiotics. Follow-up urine culture. (9) Lymphedema of both lower extremities Is this a current diagnosis for this admission?: Yes Plan: Severe bilateral lower extremity lymphedema. Elevate bilateral lower extremities. PT. Encourage ambulation.
[2019-08-04 18:05] LABS: URIC ACID 9.4 mg/dL (2.5-7.5)
[2019-08-04 18:26] LABS: C-REACTIVE PROTEIN 144.7 mg/L (<10.0)
[2019-08-04] MEDS ORDERED: RIVAROXABAN 10 MG TABLET PO SCH (18:30)
[2019-08-04] MEDS: DOCUSATE SODIUM 100 MG CAPSULE PO SCH (19:21)
[2019-08-04] MEDS: FAMOTIDINE 20 MG TABLET PO SCH (21:47)
[2019-08-05] MEDS: CLINDAMYCIN 600 MG/D5W RTU 600 MG/50 ML RTUPB IV SCH ×3 (02:48→18:51)
[2019-08-05 06:28] LABS: ABSOLUTE EOSINOPHILS # (AUTO) 0.1 10^3/uL (0.0-0.6); ABSOLUTE LYMPHOCYTES (AUTO) 2.2 10^3/uL (0.5-4.7); ABSOLUTE MONOCYTES (AUTO) 0.9 10^3/uL (0.1-1.4); ABSOLUTE NEUT (AUTO) 6.2 10^3/uL (1.7-8.2); BASOPHILS % (AUTO) 0.5 % (0-2); EOSINOPHILS % (AUTO) 1.5 % (0-6); HEMATOCRIT 35.5 % (36.0-47.0); LYMPHOCYTES % (AUTO) 23.3 % (13-45); MEAN CORPUSCULAR HEMOGLOBIN 30.5 pg (27.0-33.4); MEAN CORPUSCULAR HGB CONC 32.9 g/dL (32.0-36.0); MEAN CORPUSCULAR VOLUME 93 fl (80-97); MONOCYTES % (AUTO) 9.2 % (3-13); PLATELET COUNT 232 10^3/uL (150-450); RED BLOOD COUNT 3.83 10^6/uL (3.72-5.28); RED CELL DISTRIBUTION WIDTH 15.9 % (11.5-14.0); SEGMENTED NEUTROPHILS % (AUTO) 65.5 % (42-78); TOTAL CELLS COUNTED % (AUTO) 100 %; WHITE BLOOD COUNT 9.5 10^3/uL (4.0-10.5)
[2019-08-05 06:29] LABS: HEMOGLOBIN 11.7 g/dL (12.0-15.5)
[2019-08-05 06:40] LABS: ALBUMIN 2.9 g/dL (3.5-5.0); ALKALINE PHOSPHATASE 73 U/L (38-126); ASPARTATE AMINO TRANSFERASE 20 U/L (14-36); BILIRUBIN,TOTAL 0.7 mg/dL (0.2-1.3); BLOOD UREA NITROGEN 22 mg/dL (7-20); CALCIUM 8.8 mg/dL (8.4-10.2); CARBON DIOXIDE 31 mmol/L (22-30); CHLORIDE 98 mmol/L (98-107); GLUCOSE 100 mg/dL (75-110); POTASSIUM 3.7 mmol/L (3.6-5.0); TOTAL PROTEIN 5.7 g/dL (6.3-8.2)
[2019-08-05 06:44] LABS: ANION GAP 5 (5-19)
--- NOTE | 2019-08-05 09:41 | EKG REPORT ---
SEVERITY:- ABNORMAL ECG - SINUS RHYTHM NONSPECIFIC INTRAVENTRICULAR CONDUCTION DELAY PROBABLE LVH WITH SECONDARY REPOL ABNRM LATERAL INFARCT, OLD : Confirmed by: Krupa Zamorano 05-Aug-2019 09:40:40
[2019-08-05] MEDS ORDERED: (PENDING PHARMACY ID) (Diltiazem Hcl [Diltiazem 24hr Er (Cd)] 180 MG) PO SCH (10:00)
[2019-08-05] MEDS ORDERED: (PENDING PHARMACY ID) (Potassium Chloride [Klor-Con M20] 20 MEQ) PO SCH (10:00)
[2019-08-05] MEDS: DOCUSATE SODIUM 100 MG CAPSULE PO SCH ×2 (12:28→19:01)
[2019-08-05] MEDS: FAMOTIDINE 20 MG TABLET PO SCH ×2 (12:29→23:03)
[2019-08-05] MEDS: GABAPENTIN 300 MG CAPSULE PO SCH ×2 (12:29→23:04)
[2019-08-05] MEDS: POTASSIUM CHLORIDE 10 MEQ TABLET.ER PO SCH ×2 (12:29→18:51)
[2019-08-05] MEDS: PREDNISONE 10 MG TABLET PO SCH (12:29)
[2019-08-05] MEDS: FOLIC ACID 1 MG TABLET PO SCH (12:29)
[2019-08-05] MEDS: FUROSEMIDE 20 MG TABLET PO SCH ×2 (12:30→19:01)
[2019-08-05] MEDS: DILTIAZEM HCL 180 MG CAPSULE.CR PO SCH ×2 (12:31→23:02)
[2019-08-05] MEDS: ACETAMINOPHEN 325 MG TABLET PO PRN (12:33)
--- NOTE | 2019-08-05 13:53 | PDOC PROGRESS REPORT ---
Subjective Progress Note for:: 08/05/19 Subjective:: ANNMARIE ATKINS is a 68 year old morbidly obese female past medical history of gout, A. fib anticoagulated, osteoarthritis steroid-dependent, hypertension, diabetes on metformin, bilateral lower extremity lymphedema, presenting to ED complaining of bilateral lower extremity below the knee erythema, pain and swelling starting Friday of the last week, as well as subjective fever, and nausea. Patient is morbidly obese with history of osteoarthritis but she is able to ambulate around the house, however recently due to worsening bilateral lower extremity edema she has not been that mobile and had to sleep in her recliner. Patient lives alone and has 2 cats denies any trauma to the lower extremity or any cat scratches, also complaining of urinary incontinence, dysuria and urgency. Denies any chest pain, shortness of breath, headache, vision changes, syncope or presyncope, lightheadedness, abdominal pain, vomiting, or constipation. In the ED she was noted to have neutrophilic leukocytosis and positive UA. Patient was started on empiric IV antibiotics and hospitalist consulted for admission. 08/05/2019. No acute events overnight. Patient still complaining of bilateral extremity pain and swelling, complaining of left lower extremity pain, otherwise denies any fever, chills, nausea, vomiting, diarrhea, constipation. Reason For Visit: BILATERAL LOWER EXTREMITY CELLULITIS,UTI Physical Exam Vital Signs: Temp Pulse Resp BP Pulse Ox 99.0 F 89 16 114/48 L 98 08/05/19 13:32 08/05/19 13:32 08/05/19 13:32 08/05/19 13:32 08/05/19 13:32 Intake & Output 08/04/19 08/05/19 08/06/19 06:59 06:59 06:59 Intake Total 150 Output Total 700 Balance -550 Weight 181.4 kg General appearance: PRESENT: no acute distress, morbidly obese, well-developed, well-nourished Head exam: PRESENT: atraumatic, normocephalic Respiratory exam: PRESENT: clear to auscultation sandee. ABSENT: rales, rhonchi, wheezes Cardiovascular exam: PRESENT: RRR. ABSENT: diastolic murmur, rubs, systolic murmur GI/Abdominal exam: PRESENT: normal bowel sounds, soft. ABSENT: distended, guarding, mass, organolmegaly, rebound, tenderness Extremities exam: PRESENT: pedal edema, other - Bilateral lower extremity severe lymphedema complicated by bilateral lower extremity below the knee erythema, ten derness and swelling.. ABSENT: calf tenderness, clubbing Neurological exam: PRESENT: alert, awake, oriented to person, oriented to place, oriented to time, oriented to situation, CN II-XII grossly intact. ABSENT: motor sensory deficit Results Laboratory Results: 08/05/19 05:50 08/05/19 05:50 08/04/19 08/04/19 08/04/19 14:30 14:30 14:30 WBC 15.2 H RBC 4.62 Hgb 14.3 Hct 42.9 MCV 93 MCH 31.1 MCHC 33.4 RDW 16.5 H Plt Count 327 Seg Neutrophils % 88.4 H Sodium 133.9 L Potassium 4.4 Chloride 94 L Carbon Dioxide 30 Anion Gap 10 BUN 30 H Creatinine 0.99 Est GFR ( Amer) > 60 Glucose 146 H Uric Acid Calcium 9.6 Magnesium 2.5 H Total Bilirubin 0.5 AST 33 Alkaline Phosphatase 127 H C-Reactive Protein Total Protein 7.7 Albumin 4.1 Lipase 101.5 Urine Color Urine Appearance Urine pH Ur Specific [place] Urine Protein Urine Glucose (UA) Urine Ketones Urine Blood Urine Nitrite Ur Leukocyte Esterase Urine WBC (Auto) Urine RBC (Auto) 08/04/19 08/04/19 08/05/19 14:30 15:15 05:50 WBC 9.5 RBC 3.83 Hgb 11.7 L D Hct 35.5 L MCV 93 MCH 30.5 MCHC 32.9 RDW 15.9 H Plt Count 232 Seg Neutrophils % 65.5 Sodium Potassium Chloride Carbon Dioxide Anion Gap BUN Creatinine Est GFR ( Amer) Glucose Uric Acid 9.4 H Calcium Magnesium Total Bilirubin AST Alkaline Phosphatase C-Reactive Protein 144.7 H Total Protein Albumin Lipase Urine Color YELLOW Urine Appearance SLIGHTLY-CLOUDY Urine pH 5.0 Ur Specific [place] 1.020 Urine Protein NEGATIVE Urine Glucose (UA) NEGATIVE Urine Ketones NEGATIVE Urine Blood NEGATIVE Urine Nitrite POSITIVE H Ur Leukocyte Esterase TRACE H Urine WBC (Auto) 12 Urine RBC (Auto) 2 08/05/19 05:50 WBC RBC Hgb Hct MCV MCH MCHC RDW Plt Count Seg Neutrophils % Sodium 133.6 L Potassium 3.7 Chloride 98 Carbon Dioxide 31 H Anion Gap 5 BUN 22 H Creatinine 0.81 Est GFR ( Amer) > 60 Glucose 100 Uric Acid Calcium 8.8 Magnesium 2.3 Total Bilirubin 0.7 AST 20 Alkaline Phosphatase 73 C-Reactive Protein Total Protein 5.7 L Albumin 2.9 L Lipase Urine Color Urine Appearance Urine pH Ur Specific [place] Urine Protein Urine Glucose (UA) Urine Ketones Urine Blood Urine Nitrite Ur Leukocyte Esterase Urine WBC (Auto) Urine RBC (Auto) 08/04/19 14:45 Leg - Right Cellulitis Gram Stain - Final 08/04/19 14:30 Troponin I < 0.012 NT-Pro-B Natriuret Pep 189 H Impressions: Hip/Pelvis X-Ray 08/04/19 15:06 IMPRESSION: Mild degenerative changes are seen of the hips. No acute findings. Assessment and Plan - Diagnosis (1) Cellulitis Qualifiers: Site of cellulitis: extremity Site of cellulitis of extremity: lower extremity Laterality: unspecified laterality Qualified Code(s): L03.119 - Cellulitis of unspecified part of limb Is this a current diagnosis for this admission?: Yes Plan: Mild improvement compared to admission. Bilateral lower extremity cellulitis below the knee extending to bilateral feet. Day 2 IV antibiotics. Day 2 IV ceftriaxone. Day 2 IV clindamycin. Continue broad-spectrum empiric IV antibiotics, wound culture, blood culture, wound care, elevate bilateral lower extremities. (2) Morbid obesity with BMI of 60.0-69.9, adult Is this a current diagnosis for this admission?: Yes Plan: Super morbid obesity BMI of 68.7. We will obtain TSH. Diet and lifestyle modification recommended. (3) Paroxysmal atrial fibrillation Is this a current diagnosis for this admission?: Yes Plan: History of paroxysmal A. fib. Anticoagulated. On Xarelto, sotalol and diltiazem. Resume home meds. Monitor vitals. Outpatient PCP and cardiology follow-up. (4) Arthritis Is this a current diagnosis for this admission?: Yes Plan: History of severe bilateral lower extremity osteoarthritis. Consult PT. Resume home meds. Outpatient PCP follow-up. (5) HTN (hypertension) Qualifiers: Hypertension type: essential hypertension Qualified Code(s): I10 - Essential (primary) hypertension Is this a current diagnosis for this admission?: Yes Plan: Euvolemic. Normotensive. Resume home meds. Adjust meds as needed. PRN IV hydralazine. (6) Diabetes mellitus type 2 in obese Is this a current diagnosis for this admission?: Yes Plan: No A1c available. Home meds are metformin. We will obtain A1c. Diabetic diet. Basal, sliding scale and correctional i nsulin. Hypoglycemia protocol. Diabetic education. Hold oral antidiabetic. Resume home meds upon discharge. (7) Gout Qualifiers: Gout site: unspecified site Gout etiology: unspecified cause Chronicity: chronic Presence of tophus: without tophus Qualified Code(s): M1A.9XX0 - Chronic gout, unspecified, without tophus (tophi) Is this a current diagnosis for this admission?: Yes Plan: Does not appear to have any flare. Resume home meds. (8) UTI (urinary tract infection) Qualifiers: Urinary tract infection type: acute cystitis Hematuria presence: without hematuria Qualified Code(s): N30.00 - Acute cystitis without hematuria Is this a current diagnosis for this admission?: Yes Plan: Likely due to gram-negative rods including E. coli. Empiric IV antibiotics. Follow-up urine culture. (9) Lymphedema of both lower extremities Is this a current diagnosis for this admission?: Yes Plan: Severe bilateral lower extremity lymphedema. Elevate bilateral lower extremities. PT. Encourage ambulation.
[2019-08-05] MEDS: RIVAROXABAN 10 MG TABLET PO SCH (19:02)
[2019-08-05] MEDS: MAGNESIUM OXIDE 400 MG TABLET PO SCH (19:02)
[2019-08-05] MEDS: SOTALOL HCL 80 MG TABLET PO SCH (19:02)
[2019-08-05] MEDS: CEFTRIAXONE 1 GM/D5W RTU 1 GM/50 ML RTUPB IV SCH (23:02)
[2019-08-06] MEDS: CLINDAMYCIN 600 MG/D5W RTU 600 MG/50 ML RTUPB IV SCH ×3 (02:03→18:28)
[2019-08-06 06:21] LABS: ABSOLUTE EOSINOPHILS # (AUTO) 0.1 10^3/uL (0.0-0.6); ABSOLUTE LYMPHOCYTES (AUTO) 1.4 10^3/uL (0.5-4.7); ABSOLUTE MONOCYTES (AUTO) 0.6 10^3/uL (0.1-1.4); ABSOLUTE NEUT (AUTO) 5.4 10^3/uL (1.7-8.2); BASOPHILS % (AUTO) 0.6 % (0-2); EOSINOPHILS % (AUTO) 1.3 % (0-6); HEMATOCRIT 35.1 % (36.0-47.0); HEMOGLOBIN 11.5 g/dL (12.0-15.5); LYMPHOCYTES % (AUTO) 18.9 % (13-45); MEAN CORPUSCULAR HEMOGLOBIN 30.7 pg (27.0-33.4); MEAN CORPUSCULAR HGB CONC 32.7 g/dL (32.0-36.0); MEAN CORPUSCULAR VOLUME 94 fl (80-97); MONOCYTES % (AUTO) 8.4 % (3-13); PLATELET COUNT 173 10^3/uL (150-450); RED BLOOD COUNT 3.74 10^6/uL (3.72-5.28); RED CELL DISTRIBUTION WIDTH 16.4 % (11.5-14.0); SEGMENTED NEUTROPHILS % (AUTO) 70.8 % (42-78); TOTAL CELLS COUNTED % (AUTO) 100 %; WHITE BLOOD COUNT 7.6 10^3/uL (4.0-10.5)
[2019-08-06 07:34] LABS: ALBUMIN 2.8 g/dL (3.5-5.0); ALKALINE PHOSPHATASE 64 U/L (38-126); ASPARTATE AMINO TRANSFERASE 34 U/L (14-36); BILIRUBIN,TOTAL 0.4 mg/dL (0.2-1.3); BLOOD UREA NITROGEN 15 mg/dL (7-20); CALCIUM 8.3 mg/dL (8.4-10.2); CARBON DIOXIDE 32 mmol/L (22-30); GLUCOSE 105 mg/dL (75-110); POTASSIUM 3.8 mmol/L (3.6-5.0); TOTAL PROTEIN 5.7 g/dL (6.3-8.2)
[2019-08-06 07:39] LABS: CHLORIDE 100 mmol/L (98-107)
[2019-08-06 07:45] LABS: ANION GAP 4 (5-19)
[2019-08-06] MEDS: PREDNISONE 10 MG TABLET PO SCH (10:25)
[2019-08-06] MEDS: GABAPENTIN 300 MG CAPSULE PO SCH ×2 (10:26→21:15)
[2019-08-06] MEDS: DOCUSATE SODIUM 100 MG CAPSULE PO SCH ×2 (10:26→18:31)
[2019-08-06] MEDS: POTASSIUM CHLORIDE 10 MEQ TABLET.ER PO SCH ×2 (10:27→18:30)
[2019-08-06] MEDS: FUROSEMIDE 20 MG TABLET PO SCH ×2 (10:27→18:31)
[2019-08-06] MEDS: FAMOTIDINE 20 MG TABLET PO SCH ×2 (10:27→21:15)
[2019-08-06] MEDS: DILTIAZEM HCL 180 MG CAPSULE.CR PO SCH ×2 (10:28→21:15)
[2019-08-06] MEDS: SOTALOL HCL 80 MG TABLET PO SCH ×2 (10:28→18:32)
[2019-08-06] MEDS: FOLIC ACID 1 MG TABLET PO SCH (10:29)
[2019-08-06] MEDS ORDERED: HYDROXYZINE PAMOATE 25 MG CAPSULE PO PRN (10:33)
[2019-08-06] MEDS: RIVAROXABAN 10 MG TABLET PO SCH (16:46)
--- NOTE | 2019-08-06 16:57 | PDOC PROGRESS REPORT ---
Subjective Progress Note for:: 08/06/19 Subjective:: ANNMARIE ATKINS is a 68 year old morbidly obese female past medical history of gout, A. fib anticoagulated, osteoarthritis steroid-dependent, hypertension, diabetes on metformin, bilateral lower extremity lymphedema, presenting to ED complaining of bilateral lower extremity below the knee erythema, pain and swelling starting Friday of the last week, as well as subjective fever, and nausea. Patient is morbidly obese with history of osteoarthritis but she is able to ambulate around the house, however recently due to worsening bilateral lower extremity edema she has not been that mobile and had to sleep in her recliner. Patient lives alone and has 2 cats denies any trauma to the lower extremity or any cat scratches, also complaining of urinary incontinence, dysuria and urgency. Denies any chest pain, shortness of breath, headache, vision changes, syncope or presyncope, lightheadedness, abdominal pain, vomiting, or constipation. In the ED she was noted to have neutrophilic leukocytosis and positive UA. Patient was started on empiric IV antibiotics and hospitalist consulted for admission. 08/05/2019. No acute events overnight. Patient still complaining of bilateral extremity pain and swelling, complaining of left lower extremity pain, otherwise denies any fever, chills, nausea, vomiting, diarrhea, constipation. 08/06/2019. No acute events overnight. Patient is reporting some improvement of her overall energy and mild improvement of bilateral lower extremity pain and erythema. Denies any fever, chills, nausea, vomiting, diarrhea, constipation or any urinary symptoms. Reason For Visit: BILATERAL LOWER EXTREMITY CELLULITIS,URINARY TRACT Physical Exam Vital Signs: Temp Pulse Resp BP Pulse Ox 99.0 F 70 18 132/64 H 98 08/06/19 15:23 08/06/19 15:23 08/06/19 15:23 08/06/19 15:23 08/06/19 15:23 Intake & Output 08/05/19 08/06/19 08/07/19 06:59 06:59 06:59 Intake Total 150 1160 168 Output Total 700 3225 Balance - 168 Weight 181.4 kg 181.4 kg General appearance: PRESENT: morbidly obese Head exam: PRESENT: atraumatic, normocephalic Neck exam: ABSENT: carotid bruit, JVD, lymphadenopathy, thyromegaly Respiratory exam: PRESENT: clear to auscultation sandee. ABSENT: rales, rhonchi, wheezes GI/Abdominal exam: PRESENT: normal bowel sounds, soft. ABSENT: distended, guar ding, mass, organolmegaly, rebound, tenderness Extremities exam: PRESENT: other - Bilateral lower extremity below the knee circumferential erythema and tenderness. Much improved compared to admission. Neurological exam: PRESENT: alert, awake, oriented to person, oriented to place, oriented to time, oriented to situation, CN II-XII grossly intact. ABSENT: motor sensory deficit Results Laboratory Results: 08/06/19 05:54 08/06/19 06:47 08/06/19 08/06/19 08/06/19 05:54 05:54 06:47 WBC 7.6 RBC 3.74 Hgb 11.5 L Hct 35.1 L MCV 94 MCH 30.7 MCHC 32.7 RDW 16.4 H Plt Count 173 Seg Neutrophils % 70.8 Sodium Cancelled 135.7 L Potassium Cancelled 3.8 Chloride Cancelled 100 Carbon Dioxide Cancelled 32 H Anion Gap Cancelled 4 L BUN Cancelled 15 Creatinine Cancelled 0.76 Est GFR ( Amer) Cancelled > 60 Est GFR (Non-Af Amer) Cancelled Glucose Cancelled 105 Calcium Cancelled 8.3 L Magnesium Cancelled 2.0 Total Bilirubin Cancelled 0.4 AST Cancelled 34 Alkaline Phosphatase Cancelled 64 Total Protein Cancelled 5.7 L Albumin Cancelled 2.8 L 08/04/19 14:45 Leg - Right Cellulitis Gram Stain - Final 08/04/19 14:30 Troponin I < 0.012 NT-Pro-B Natriuret Pep 189 H Impressions: Hip/Pelvis X-Ray 08/04/19 15:06 IMPRESSION: Mild degenerative changes are seen of the hips. No acute findings. Assessment and Plan - Diagnosis (1) Cellulitis Qualifiers: Site of cellulitis: extremity Site of cellulitis of extremity: lower extremity Laterality: unspecified laterality Qualified Code(s): L03.119 - Cellulitis of unspecified part of limb Is this a current diagnosis for this admission?: Yes Plan: Mild improvement compared to admission. Bilateral lower extremity cellulitis below the knee extending to bilateral feet. Day 3 IV antibiotics. Day 3 IV ceftriaxone. Day 3 IV clindamycin. Continue broad-spectrum empiric IV antibiotics, wound culture, blood culture, wound care, elevate bilateral lower extremities. (2) Morbid obesity with BMI of 60.0-69.9, adult Is this a current diagnosis for this admission?: Yes Plan: Super morbid obesity BMI of 68.7. We will obtain TSH. Diet and lifestyle modification recommended. (3) Paroxysmal atrial fibrillation Is this a current diagnosis for this admission?: Yes Plan: History of paroxysmal A. fib. Anticoagulated. On Xarelto, sotalol and diltiazem. Resume home meds. Monitor vitals. Outpatient PCP and cardiology follow-up. (4) Arthritis Is this a current diagnosis for this admission?: Yes Plan: History of severe bilateral lower extremity osteoarthritis. Consult PT. Resume home meds. Outpatient PCP follow-up. (5) HTN (hypertension) Qualifiers: Hypertension type: essential hypertension Qualified Code(s): I10 - Essential (primary) hypertension Is this a current diagnosis for this admission?: Yes Plan: Euvolemic. Normotensive. Resume home meds. Adjust meds as needed. PRN IV hydralazine. (6) Diabetes mellitus type 2 in obese Is this a current diagnosis for this admission?: Yes Plan: No A1c available. Home meds are metformin. We will obtain A1c. Diabetic diet. Basal, sliding scale and correctional ins ulin. Hypoglycemia protocol. Diabetic education. Hold oral antidiabetic. Resume home meds upon discharge. (7) Gout Qualifiers: Gout site: unspecified site Gout etiology: unspecified cause Chronicity: chronic Presence of tophus: without tophus Qualified Code(s): M1A.9XX0 - Chronic gout, unspecified, without tophus (tophi) Is this a current diagnosis for this admission?: Yes Plan: Does not appear to have any flare. Resume home meds. (8) UTI (urinary tract infection) Qualifiers: Urinary tract infection type: acute cystitis Hematuria presence: without hematuria Qualified Code(s): N30.00 - Acute cystitis without hematuria Is this a current diagnosis for this admission?: Yes Plan: Urine culture positive for E. coli pansensitive. Empiric IV antibiotics. Follow-up urine culture. (9) Lymphedema of both lower extremities Is this a current diagnosis for this admission?: Yes Plan: Severe bilateral lower extremity lymphedema. Elevate bilateral lower extremities. PT. Encourage ambulation.
[2019-08-06] MEDS: MAGNESIUM OXIDE 400 MG TABLET PO SCH (18:31)
[2019-08-06] MEDS: CEFTRIAXONE 1 GM/D5W RTU 1 GM/50 ML RTUPB IV SCH (21:16)
[2019-08-07] MEDS: CLINDAMYCIN 600 MG/D5W RTU 600 MG/50 ML RTUPB IV SCH ×3 (02:40→17:30)
[2019-08-07 05:31] LABS: ALBUMIN 2.8 g/dL (3.5-5.0); ALKALINE PHOSPHATASE 58 U/L (38-126); ASPARTATE AMINO TRANSFERASE 36 U/L (14-36); BILIRUBIN,TOTAL 0.4 mg/dL (0.2-1.3); BLOOD UREA NITROGEN 13 mg/dL (7-20); CALCIUM 8.3 mg/dL (8.4-10.2); CARBON DIOXIDE 30 mmol/L (22-30); CHLORIDE 102 mmol/L (98-107); GLUCOSE 91 mg/dL (75-110); POTASSIUM 4.3 mmol/L (3.6-5.0); TOTAL PROTEIN 5.6 g/dL (6.3-8.2)
[2019-08-07 05:41] LABS: ANION GAP 3 (5-19)
[2019-08-07 07:25] LABS: ABSOLUTE BASOPHILS # (AUTO) 0.1 10^3/uL (0.0-0.2); ABSOLUTE EOSINOPHILS # (AUTO) 0.2 10^3/uL (0.0-0.6); ABSOLUTE LYMPHOCYTES (AUTO) 2.2 10^3/uL (0.5-4.7); ABSOLUTE MONOCYTES (AUTO) 0.8 10^3/uL (0.1-1.4); ABSOLUTE NEUT (AUTO) 4.3 10^3/uL (1.7-8.2); BASOPHILS % (AUTO) 0.7 % (0-2); EOSINOPHILS % (AUTO) 3.3 % (0-6); LYMPHOCYTES % (AUTO) 29.1 % (13-45); MEAN CORPUSCULAR HEMOGLOBIN 30.4 pg (27.0-33.4); MEAN CORPUSCULAR HGB CONC 32.5 g/dL (32.0-36.0); MEAN CORPUSCULAR VOLUME 94 fl (80-97); MONOCYTES % (AUTO) 10.3 % (3-13); PLATELET COUNT 206 10^3/uL (150-450); RED BLOOD COUNT 3.62 10^6/uL (3.72-5.28); SEGMENTED NEUTROPHILS % (AUTO) 56.6 % (42-78); TOTAL CELLS COUNTED % (AUTO) 100 %; WHITE BLOOD COUNT 7.5 10^3/uL (4.0-10.5)
[2019-08-07] MEDS: PREDNISONE 10 MG TABLET PO SCH (10:59)
[2019-08-07] MEDS: FUROSEMIDE 20 MG TABLET PO SCH ×2 (10:59→17:29)
[2019-08-07] MEDS: POTASSIUM CHLORIDE 10 MEQ TABLET.ER PO SCH ×2 (11:00→17:30)
[2019-08-07] MEDS: DOCUSATE SODIUM 100 MG CAPSULE PO SCH ×2 (11:00→17:30)
[2019-08-07] MEDS: FAMOTIDINE 20 MG TABLET PO SCH ×2 (11:00→21:42)
[2019-08-07] MEDS: DILTIAZEM HCL 180 MG CAPSULE.CR PO SCH ×2 (11:00→21:42)
[2019-08-07] MEDS: GABAPENTIN 300 MG CAPSULE PO SCH ×2 (11:00→21:42)
[2019-08-07] MEDS: FOLIC ACID 1 MG TABLET PO SCH (11:00)
[2019-08-07] MEDS: SOTALOL HCL 80 MG TABLET PO SCH ×2 (11:00→17:29)
--- NOTE | 2019-08-07 12:17 | PDOC PROGRESS REPORT ---
Subjective Progress Note for:: 08/07/19 Subjective:: ANNMARIE ATKINS is a 68 year old morbidly obese female past medical history of gout, A. fib anticoagulated, osteoarthritis steroid-dependent, hypertension, diabetes on metformin, bilateral lower extremity lymphedema, presenting to ED complaining of bilateral lower extremity below the knee erythema, pain and swelling starting Friday of the last week, as well as subjective fever, and nausea. Patient is morbidly obese with history of osteoarthritis but she is able to ambulate around the house, however recently due to worsening bilateral lower extremity edema she has not been that mobile and had to sleep in her recliner. Patient lives alone and has 2 cats denies any trauma to the lower extremity or any cat scratches, also complaining of urinary incontinence, dysuria and urgency. Denies any chest pain, shortness of breath, headache, vision changes, syncope or presyncope, lightheadedness, abdominal pain, vomiting, or constipation. In the ED she was noted to have neutrophilic leukocytosis and positive UA. Patient was started on empiric IV antibiotics and hospitalist consulted for admission. 08/05/2019. No acute events overnight. Patient still complaining of bilateral extremity pain and swelling, complaining of left lower extremity pain, otherwise denies any fever, chills, nausea, vomiting, diarrhea, constipation. 08/06/2019. No acute events overnight. Patient is reporting some improvement of her overall energy and mild improvement of bilateral lower extremity pain and erythema. Denies any fever, chills, nausea, vomiting, diarrhea, constipation or any urinary symptoms. 08/07/2019. No acute events overnight. Reporting moderate improvement of bilateral lower extremity cellulitis and pain, still complaining of itching, denies any fever, chills, nausea, vomiting, diarrhea, constipation or any urinary symptoms. Reason For Visit: BILATERAL LOWER EXTREMITY CELLULITIS,URINARY TRACT Physical Exam Vital Signs: Temp Pulse Resp BP Pulse Ox 98.1 F 69 16 139/62 H 93 08/07/19 07:34 08/07/19 11:46 08/07/19 11:46 08/07/19 07:34 08/07/19 11:46 Intake & Output 08/06/19 08/07/19 08/08/19 06:59 06:59 06:59 Intake Total 1160 638 Output Total 0186 0637 Balance -2064 Weight 181.4 kg 181.4 kg General appearance: PRESENT: no acute distress, morbidly obese, well-developed, well-nourished Head exam: PRESENT: atraumatic, normocephalic Respiratory exam: PRESENT: clear to auscultation sandee. ABSENT: rales, rhonchi, wheezes Cardiovascular exam: PRESENT: RRR. ABSENT: diastolic murmur, rubs, systolic murmur GI/Abdominal exam: PRESENT: normal bowel sounds, soft. ABSENT: distended, guarding, mass, organolmegaly, rebound, tenderness Extremities exam: PRESENT: full ROM, other - Lateral lower extremity severe lymphedema. Bilateral lower extremity below the knee stasis dermatitis and crusting. Significant improvement of bilateral lower extremity below the knee cellulitis.. ABSENT: calf tenderness, clubbing, pedal edema Neurological exam: PRESENT: alert, awake, oriented to person, oriented to place, oriented to time, oriented to situation, CN II-XII grossly intact. ABSENT: motor sensory deficit Results Laboratory Results: 08/07/19 06:35 08/07/19 04:20 08/07/19 08/07/19 08/07/19 04:20 04:20 04:20 WBC Cancelled RBC Cancelled Hgb Cancelled Hct Cancelled MCV Cancelled MCH Cancelled MCHC Cancelled RDW Cancelled Plt Count Cancelled Seg Neutrophils % Cancelled Sodium 135.2 L Potassium 4.3 Chloride 102 Carbon Dioxide 30 Anion Gap 3 L BUN 13 Creatinine 0.61 Est GFR ( Amer) > 60 Glucose 91 Calcium 8.3 L Magnesium 2.2 Total Bilirubin 0.4 AST 36 Alkaline Phosphatase 58 Total Protein 5.6 L Albumin 2.8 L TSH 0.49 08/07/19 06:35 WBC 7.5 RBC 3.62 L Hgb 11.0 L Hct 34.0 L MCV 94 MCH 30.4 MCHC 32.5 RDW 16.0 H Plt Count 206 Seg Neutrophils % 56.6 Sodium Potassium Chloride Carbon Dioxide Anion Gap BUN Creatinine Est GFR ( Amer) Glucose Calcium Magnesium Total Bilirubin AST Alkaline Phosphatase Total Protein Albumin TSH 08/04/19 14:45 Leg - Right Cellulitis Gram Stain - Final 08/04/19 14:30 Troponin I < 0.012 NT-Pro-B Natriuret Pep 189 H Impressions: Hip/Pelvis X-Ray 08/04/19 15:06 IMPRESSION: Mild degenerative changes are seen of the hips. No acute findings. Assessment and Plan - Diagnosis (1) Cellulitis Qualifiers: Site of cellulitis: extremity Site of cellulitis of extremity: lower extremity Laterality: unspecified laterality Qualified Code(s): L03.119 - Cellulitis of unspecified part of limb Is this a current diagnosis for this admission?: Yes Plan: Moderate improvement. Visual bilateral lower extremity lymphedema and stasis dermatitis. Bilateral lower extremity cellulitis below the knee extending to bilateral feet. Day 4 IV antibiotics. Day 4 IV ceftriaxone. Day 4 IV clindamycin. Continue broad-spectrum empiric IV antibiotics, wound culture, blood culture, wound care, elevate bilateral lower extremities. (2) Morbid obesity with BMI of 60.0-69.9, adult Is this a current diagnosis for this admission?: Yes Plan: Super morbid obesity BMI of 68.7. TSH WNL. Diet and lifestyle modification recommended. Patient will greatly benefit from bariatric intervention. I have discussed this with patient and she is planning to pursue this option as outpatient. (3) Paroxysmal atrial fibrillation Is this a current diagnosis for this admission?: Yes Plan: History of paroxysmal A. fib. Anticoagulated. On Xarelto, sotalol and diltiazem. Resume home meds. Monitor vitals. Outpatient PCP and cardiology follow-up. (4) Arthritis Is this a current diagnosis for this admission?: Yes Plan: History of severe bilateral lower extremity osteoarthritis. Consult PT. Resume home meds. Outpatient PCP follow-up. (5) HTN (hypertension) Qualifiers: Hypertension type: essential hypertension Qualified Code(s): I10 - Essential (primary) hypertension Is this a current diagnosis for this admission?: Yes Plan: Euvolemic. Normotensive. Resume home meds. Adjust meds as needed. PRN IV hydralazine. (6) Diabetes mellitus type 2 in obese Is this a current diagnosis for this admission?: Yes Plan: Well-controlled. Home meds are metformin. Diabetic diet. Basal, sliding scale and correctional insulin. Hypoglycemia protocol. Diabetic education. Hold oral antidiabetic. Resume home meds upon discharge. (7) Gout Qualifiers: Gout site: unspecified site Gout etiology: unspecified cause Chronicity: chronic Presence of tophus: without tophus Qualified Code(s): M1A.9XX0 - Chronic gout, unspecified, without tophus (tophi) Is this a current diagnosis for this admission?: Yes Plan: Does not appear to have any flare. Resume home meds. (8) UTI (urinary tract infection) Qualifiers: Urinary tract infection type: acute cystitis Hematuria presence: without hematuria Qualified Code(s): N30.00 - Acute cystitis without hematuria Is this a current diagnosis for this admission?: Yes Plan: Urine culture positive for E. coli pansensitive. Completed course of IV ceftriaxone. (9) Lymphedema of both lower extremities Is this a current diagnosis for this admission?: Yes Plan: Severe bilateral lower extremity lymphedema. Elevate bilateral lower extremities. PT. Encourage ambulation.
[2019-08-07] MEDS: RIVAROXABAN 10 MG TABLET PO SCH (17:29)
[2019-08-07] MEDS: MAGNESIUM OXIDE 400 MG TABLET PO SCH (17:29)
[2019-08-07] MEDS: CEFTRIAXONE 1 GM/D5W RTU 1 GM/50 ML RTUPB IV SCH (19:52)
[2019-08-08] MEDS: CLINDAMYCIN 600 MG/D5W RTU 600 MG/50 ML RTUPB IV SCH ×2 (02:08→09:38)
[2019-08-08] MEDS: ACETAMINOPHEN 325 MG TABLET PO PRN (07:52)
[2019-08-08] MEDS: PREDNISONE 10 MG TABLET PO SCH (09:37)
[2019-08-08] MEDS: FAMOTIDINE 20 MG TABLET PO SCH (09:38)
[2019-08-08] MEDS: FUROSEMIDE 20 MG TABLET PO SCH (09:38)
[2019-08-08] MEDS: GABAPENTIN 300 MG CAPSULE PO SCH (09:38)
[2019-08-08] MEDS: FOLIC ACID 1 MG TABLET PO SCH (09:38)
[2019-08-08] MEDS: POTASSIUM CHLORIDE 10 MEQ TABLET.ER PO SCH (09:38)
[2019-08-08] MEDS: DOCUSATE SODIUM 100 MG CAPSULE PO SCH (09:38)
[2019-08-08] MEDS: DILTIAZEM HCL 180 MG CAPSULE.CR PO SCH (09:39)
[2019-08-08] MEDS: SOTALOL HCL 80 MG TABLET PO SCH (09:40)
[2019-08-08 11:57] VITALS: BP 153/67
--- NOTE | 2019-08-10 20:16 | PDOC DISCHARGE SUMMARY ---
Impression - Admit/DC Date/PCP Admission Date/Primary Care Provider: 08/04/19 17:41 Discharge Date: 08/08/19 - Discharge Diagnosis (1) Cellulitis Is this a current diagnosis for this admission?: Yes (2) Morbid obesity with BMI of 60.0-69.9, adult Is this a current diagnosis for this admission?: Yes (3) Paroxysmal atrial fibrillation Is this a current diagnosis for this admission?: Yes (4) Arthritis Is this a current diagnosis for this admission?: Yes (5) HTN (hypertension) Is this a current diagnosis for this admission?: Yes (6) Diabetes mellitus type 2 in obese Is this a current diagnosis for this admission?: Yes (7) Gout Is this a current diagnosis for this admission?: Yes (8) UTI (urinary tract infection) Is this a current diagnosis for this admission?: Yes (9) Lymphedema of both lower extremities Is this a current diagnosis for this admission?: Yes - Additional Information Referrals: [facility] [Provider Group] - 08/11/19 10:30 am (GO BY OFFICE AND CALCULUS TUTOR PAPERWORK BEFORE VISIT.) Prescriptions: Clindamycin HCl 300 mg PO TID 3 Days #9 capsule Home Medications: Diltiazem HCl [Diltiazem 24Hr ER (Cd)] 180 mg PO Q12 07/25/16 Folic Acid 1 mg PO DAILY 07/25/16 Furosemide 20 mg PO BID 07/25/16 Magnesium Oxide 400 mg PO QPM 07/25/16 Metformin HCl 500 mg PO BIDBS 07/25/16 Potassium Chloride [Klor-Con M20] 20 meq PO BID 07/25/16 Prednisone 15 mg PO DAILY 07/25/16 Rivaroxaban [Xarelto] 20 mg PO QPM 07/25/16 Sotalol HCl [Sotalol] 160 mg PO BID 07/25/16 Tramadol HCl 50 mg PO TIDP PRN 07/25/16 Gabapentin [Neurontin 300 mg Capsule] 600 mg PO Q12 08/04/19 Clindamycin HCl 300 mg PO TID 3 Days #9 capsule 08/08/19 History of Present Illiness History of Present Illness: ANNMARIE ATKINS is a 68 year old morbidly obese female past medical history of gout, A. fib anticoagulated, osteoarthritis steroid-dependent, hypertension, diabetes on metformin, bilateral lower extremity lymphedema, presenting to ED complaining of bilateral lower extremity below the knee erythema, pain and swelling starting Friday of the last week, as well as subjective fever, and nausea. Patient is morbidly obese with history of osteoarthritis but she is able to ambulate around the house, however recently due to worsening bilateral lower extremity edema she has not been that mobile and had to sleep in her recliner. Patient lives alone and has 2 cats denies any trauma to the lower extremity or any cat scratches, also complaining of urinary incontinence, dysuria and urgency. Denies any chest pain, shortness of breath, headache, vision changes, syncope or presyncope, lightheadedness, abdominal pain, vomiting, or constipation. In the ED she was noted to have neutrophilic leukocytosis and positive UA. Patient was started on empiric IV antibiotics and hospitalist consulted for admission. Hospital Course Hospital Course: (1) Cellulitis Significant improvement. Residual bilateral lower extremity lymphedema and stasis dermatitis. No tenderness, no discharge, no sign of cellulitis. Received 4 days of IV antibiotics. Received 4 days of IV ceftriaxone. Received 4 days of IV clindamycin. Was discharged on 3 days of p.o. clindamycin to complete a week. (2) Morbid obesity with BMI of 60.0-69.9, adult Super morbid obesity BMI of 68.7. TSH WNL. Diet and lifestyle modification recommended. Patient will greatly benefit from bariatric intervention. I have discussed this with patient and she is planning to pursue this option as outpatient. (3) Paroxysmal atrial fibrillation History of paroxysmal A. fib. Anticoagulated. Rate controlled. Home meds are Xarelto, sotalol and diltiazem. Started on home meds. Advised to resume home meds upon discharge. Outpatient cardiology follow-up. (4) Arthritis History of severe bilateral lower extremity osteoarthritis. Received PT while inpatient. (5) HTN (hypertension) Euvolemic. Normotensive. Started on home meds. (6) Diabetes mellitus type 2 in obese Well-controlled. Home meds are metformin. Hemoglobin A1c 6.2. Was a started on diabetic diet. Basal, sliding scale and correctional insulin. Hypoglycemia protocol. Advised to resume home meds upon discharge. (7) Gout Does not appear to have any flare. Resume home meds. (8) UTI (urinary tract infection) Urine culture positive for E. coli pansensitive. Completed course of IV ceftriaxone. (9) Lymphedema of both lower extremities Severe bilateral lower extremity lymphedema. Elevate bilateral lower extremities. PT. Encourage ambulation. Physical Exam Vital Signs: Temp Pulse Resp BP Pulse Ox 98.7 F 64 16 153/67 H 98 08/08/19 14:17 08/08/19 14:17 08/08/19 14:17 08/08/19 14:17 08/08/19 14:17 Intake & Output 08/09/19 08/10/19 08/11/19 06:59 06:59 06:59 Intake Total 530 Output Total 850 Balance -320 General appearance: PRESENT: no acute distress, morbidly obese Head exam: PRESENT: atraumatic, normocephalic Neck exam: ABSENT: carotid bruit, JVD, lymphadenopathy, thyromegaly Respiratory exam: PRESENT: clear to auscultation sandee. ABSENT: rales, rhonchi, wheezes Cardiovascular exam: PRESENT: RRR. ABSENT: diastolic murmur, rubs, systolic murmur GI/Abdominal exam: PRESENT: normal bowel sounds, soft. ABSENT: distended, guarding, mass, organolmegaly, rebound, tenderness Extremities exam: PRESENT: full ROM, other - Bilateral lower extremity severe lymphedema and stasis dermatitis below the knees.. ABSENT: calf tenderness, clubbing, pedal edema Neurological exam: PRESENT: alert, awake, oriented to person, oriented to place, oriented to time, oriented to situation, CN II-XII grossly intact. ABSENT: manuel r sensory deficit Results Laboratory Results: WBC 7.5 10^3/uL (4.0-10.5) 08/07/19 06:35 RBC 3.62 10^6/uL (3.72-5.28) L 08/07/19 06:35 Hgb 11.0 g/dL (12.0-15.5) L 08/07/19 06:35 Hct 34.0 % (36.0-47.0) L 08/07/19 06:35 MCV 94 fl (80-97) 08/07/19 06:35 MCH 30.4 pg (27.0-33.4) 08/07/19 06:35 MCHC 32.5 g/dL (32.0-36.0) 08/07/19 06:35 RDW 16.0 % (11.5-14.0) H 08/07/19 06:35 Plt Count 206 10^3/uL (150-450) 08/07/19 06:35 Lymph % (Auto) 29.1 % (13-45) 08/07/19 06:35 [place] % (Auto) 10.3 % (3-13) 08/07/19 06:35 Eos % (Auto) 3.3 % (0-6) 08/07/19 06:35 Baso % (Auto) 0.7 % (0-2) 08/07/19 06:35 Absolute Neuts (auto) 4.3 10^3/uL (1.7-8.2) 08/07/19 06:35 Absolute Lymphs (auto) 2.2 10^3/uL (0.5-4.7) 08/07/19 06:35 Absolute Monos (auto) 0.8 10^3/uL (0.1-1.4) 08/07/19 06:35 Absolute Eos (auto) 0.2 10^3/uL (0.0-0.6) 08/07/19 06:35 Absolute Basos (auto) 0.1 10^3/uL (0.0-0.2) 08/07/19 06:35 Seg Neutrophils % 56.6 % (42-78) 08/07/19 06:35 Platelet Estimate Cancelled 08/07/19 04:20 ESR 65 mm/hr (0-30) H 08/04/19 14:30 Sodium 135.2 mmol/L (137-145) L 08/07/19 04:20 Potassium 4.3 mmol/L (3.6-5.0) 08/07/19 04:20 Chloride 102 mmol/L (98-107) 08/07/19 04:20 Carbon Dioxide 30 mmol/L (22-30) 08/07/19 04:20 Anion Gap 3 (5-19) L 08/07/19 04:20 BUN 13 mg/dL (7-20) 08/07/19 04:20 Creatinine 0.61 mg/dL (0.52-1.25) 08/07/19 04:20 Est GFR ( Amer) > 60 (>60) 08/07/19 04:20 Est GFR (Non-Af Amer) Cancelled 08/06/19 05:54 Est GFR (MDRD) Non-Af > 60 (>60) 08/07/19 04:20 Glucose 91 mg/dL (75-110) 08/07/19 04:20 Hemoglobin A1c % 6.2 % (4.7-6.0) H 08/07/19 06:35 Uric Acid 9.4 mg/dL (2.5-7.5) H 08/04/19 14:30 Calcium 8.3 mg/dL (8.4-10.2) L 08/07/19 04:20 Magnesium 2.2 mg/dL (1.6-2.3) 08/07/19 04:20 Total Bilirubin 0.4 mg/dL (0.2-1.3) 08/07/19 04:20 Direct Bilirubin 0.0 mg/dL (0.0-0.4) 08/07/19 04:20 Neonat Total Bilirubin Not Reportable 08/07/19 04:20 Neonat Direct Bilirubin Not Reportable 08/07/19 04:20 Neonat Indirect Bili Not Reportable 08/07/19 04:20 AST 36 U/L (14-36) 08/07/19 04:20 ALT 23 U/L (<35) 08/07/19 04:20 Alkaline Phosphatase 58 U/L (38-126) 08/07/19 04:20 Troponin I < 0.012 ng/mL 08/04/19 14:30 C-Reactive Protein 144.7 mg/L (<10.0) H 08/04/19 14:30 NT-Pro-B Natriuret Pep 189 pg/mL (<125) H 08/04/19 14:30 Total Protein 5.6 g/dL (6.3-8.2) L 08/07/19 04:20 Albumin 2.8 g/dL (3.5-5.0) L 08/07/19 04:20 Lipase 101.5 U/L (23-300) 08/04/19 14:30 EGFR Cancelled 08/06/19 05:54 TSH 0.49 uIU/mL (0.47-4.68) 08/07/19 04:20 Urine Color YELLOW 08/04/19 15:15 Urine Appearance SLIGHTLY-CLOUDY 08/04/19 15:15 Urine pH 5.0 (5.0-9.0) 08/04/19 15:15 Ur Specific [place] 1.020 08/04/19 15:15 Urine Protein NEGATIVE mg/dL (NEGATIVE) 08/04/19 15:15 Urine Glucose (UA) NEGATIVE mg/dL (NEGATIVE) 08/04/19 15:15 Urine Ketones NEGATIVE mg/dL (NEGATIVE) 08/04/19 15:15 Urine Blood NEGATIVE (NEGATIVE) 08/04/19 15:15 Urine Nitrite POSITIVE (NEGATIVE) H 08/04/19 15:15 Urine Bilirubin NEGATIVE (NEGATIVE) 08/04/19 15:15 Urine Urobilinogen NEGATIVE mg/dL (<2.0) 08/04/19 15:15 Ur Leukocyte Esterase TRACE (NEGATIVE) H 08/04/19 15:15 Urine WBC (Auto) 12 /HPF 08/04/19 15:15 Urine RBC (Auto) 2 /HPF 08/04/19 15:15 U Hyaline Cast (Auto) 36 /LPF 08/04/19 15:15 Urine Bacteria (Auto) 1+ /HPF 08/04/19 15:15 Squamous Epi Cells Auto <1 /HPF 08/04/19 15:15 Urine Mucus (Auto) OCC /LPF 08/04/19 15:15 Urine Ascorbic Acid NEGATIVE (NEGATIVE) 08/04/19 15:15 Slides for Path Review Cancelled 08/07/19 04:20 08/04/19 14:30 Troponin I < 0.012 NT-Pro-B Natriuret Pep 189 H Impressions: Hip/Pelvis X-Ray 08/04/19 15:06 IMPRESSION: Mild degenerative changes are seen of the hips. No acute findings. Stroke Is this a Stroke Patient?: No Acute Heart Failure - Is this a Heart Failure Patient?: No
== END 2019-08-08 15:05 | disposition home health service (06) | DRG 603 ==
LOC: ER 12:43 → OBSVTOIN 17:41 → INTOOBSV 17:41 → EH 17:41 → 4S 19:45
PROVIDERS: ADMIT Internal Medicine; ATTEND Internal Medicine
DX: L03.116 Cellulitis of left lower limb (principal); Z68.44 Body mass index [BMI] 60.0-69.9, adult; N39.0 Urinary tract infection, site not specified; L03.115 Cellulitis of right lower limb; I48.0 Paroxysmal atrial fibrillation; M1A.9XX0 Chronic gout, unspecified, without tophus (tophi); B96.20 Unspecified Escherichia coli [E. coli] as the cause of diseases classified elsewhere; Z60.2 Problems related to living alone; E66.01 Morbid (severe) obesity due to excess calories; I89.0 Lymphedema, not elsewhere classified; Z79.01 Long term (current) use of anticoagulants; M19.90 Unspecified osteoarthritis, unspecified site; I10 Essential (primary) hypertension; E11.9 Type 2 diabetes mellitus without complications; Z79.84 Long term (current) use of oral hypoglycemic drugs; G47.30 Sleep apnea, unspecified; Z79.52 Long term (current) use of systemic steroids; Z90.49 Acquired absence of other specified parts of digestive tract; Z79.899 Other long term (current) drug therapy; Z88.8 Allergy status to other drugs, medicaments and biological substances
CPT/HCPCS: 36415; 80053; 81001; 83036; 83690; 83735; 83880; 84443; 84484; 84550; 85025; 85652; 86140; 87040; 87070; 87077; 87086; 87088; 87186; 87205; 93005; 93010; 99285; G0378; J0696; J3490; J7512

== ENCOUNTER 2019-12-08 05:05 | Inpatient (IN) | payer OTHER, MEDICARE ==
[2019-12-08] MEDS ORDERED: VANCOMYCIN HCL INJ 1000 MG VIAL IV ONE (05:44)
--- NOTE | 2019-12-08 05:57 | ER Document Report ---
ED General - General Chief Complaint: Leg Swelling Stated Complaint: RIGHT FOOT PAIN/SWELLING Time Seen by Provider: 12/08/19 05:37 Primary Care Provider: OLIVERIO CALIX DO [Primary Care Provider] - Follow up as needed Notes: 69-year-old lady with a history of lymphedema and right lower extremity cellulitis with chronic venous insufficiency and decreased mobility presents with right lower extremity pain and swelling. Is been going on for 2 to 3 days and has been worse since that she cannot get up and "my legs feel like cement" without fever or chills. Her right leg is worse than her left but due to obesity she can actually visualize her lower extremities. She lives at home alone with no help and has been having trouble with ADLs lately. TRAVEL OUTSIDE OF THE [place] IN LAST 30 DAYS: No - Related Data Allergies/Adverse Reactions: clindamycin Allergy (Verified 09/08/19 10:22) digoxin Allergy (Verified 08/04/19 13:30) spironolactone Allergy (Verified 08/04/19 13:30) povidone-iodine [From Betadine] Adverse Reaction (Verified 07/24/16 13:33) soap [From Betadine] Adverse Reaction (Verified 07/24/16 13:33) Past Medical History - Social History Smoking Status: Never Smoker Family History: Reviewed & Not Pertinent - Past Medical History Cardiac Medical History: Reports: Hx Atrial Fibrillation, Hx Hypertension Denies: Hx Congestive Heart Failure, Hx Coronary Artery Disease, Hx DVT, Hx Heart Attack, Hx Hypercholesterolemia, Hx Pulmonary Embolism Pulmonary Medical History: Denies: Hx Asthma, Hx COPD, Hx Sleep Apnea Neurological Medical History: Denies: Hx Seizures Endocrine Medical History: Reports: Hx Diabetes Mellitus Type 2. Denies: Hx Hyperthyroidism, Hx Hypothyroidism Renal/ Medical History: Denies: Hx Peritoneal Dialysis GI Medical History: Denies: Hx Cirrhosis, Hx Gastroesophageal Reflux Disease, Hx Hepatitis Musculoskeletal Medical History: Reports Hx Arthritis - Steroid-dependent, Reports Hx Gout Psychiatric Medical History: Denies: Hx Depression Infectious Medical History: Denies: Hx C-Diff, Hx Hepatitis, Hx MRSA Past Surgical History: Reports: Hx Cholecystectomy Review of Systems - Review of Systems Notes: REVIEW OF SYSTEMS GEN: Generalized weakness oss ENT: Denies sore throat, nasal discharge, ear pain EYES: Denies blurry vision, eye pain, discharge CV: Denies chest pain, palpitations, e baseline shortness of breath unchanged d enies cough, shortness of breath, wheezing GI: Denies abdominal pain, nausea, vomiting, diarrhea MSK: Swollen legs right greater than left edema, SKIN: Denies rash, skin lesions LYMPH: Denies swollen glands/lymph nodes NEURO: Denies headache, focal weakness or numbness, dizziness PSYCH: Denies depression, suicidal or homicidal ideation PHYSICAL EXAMINATION General: Deconditioned pale and morbidly obese urished Head: Atraumatic, normocephalic ENT: Mouth normal, oropharynx moist, no exudates or tonsillar enlargement Eyes: Conjunctiva normal, pupils equal, lids normal Neck: No JVD, supple, no guarding CVS: Normal rate, regular rhythm, no murmurs Resp: No resp distress, equal and normal breath sounds bilaterally GI: Nondistended, soft, no tenderness to palpation, no rebound or guarding Ext: Severe lower extremity edema right greater than left with wrappings in place, and with blanching erythema distal and proximal to the right dressing extending up to the groin but sparing the perineum and all the way down to the toes with bullae , swelling of the left leg appears chronic and there is no discoloration. Back: No CVA or midline TTP Skin: No rash, warm. Anasarca from the waist down. Lymphatic: No lymphadeopathy noted Neuro: Awake, alert. Face symmetric. GCS 15. Physical Exam - Vital signs Vitals: Temp Pulse Resp BP Pulse Ox 98.1 F 59 L 17 124/63 100 12/08/19 05:17 12/08/19 05:17 12/08/19 05:17 12/08/19 05:17 12/08/19 05:17 Course - Re-evaluation Re-evalutation: 12/08/19 05:56 Exacerbation of chronic lymphedema versus renal/heart failure/liver failure, concomitant right lower extremity cellulitis. No obvious fever but will obtain core temp as this does look like cellulitis rather than simply venous insufficiency given the expansion blanching erythema and tenderness. Ultrasound IV placed by me sepsis work-up ordered as well as heart failure work- up, empiric vancomycin - Vital Signs Vital signs: Temp Pulse Resp BP Pulse Ox 98.1 F 59 L 18 112/55 L 95 12/08/19 05:17 12/08/19 05:17 12/08/19 11:01 12/08/19 11:01 12/08/19 11:01 - Laboratory Result Diagrams: 12/08/19 07:09 12/08/19 09:05 Laboratory results interpreted by me: 12/08/19 12/08/19 12/08/19 07:03 07:09 07:09 Hgb 11.8 L Hct 34.3 L RDW 16.0 H PT 28.0 H Sodium Potassium Chloride Carbon Dioxide BUN Est GFR (MDRD) Non-Af Glucose POC Glucose 122 H NT-Pro-B Natriuret Pep Total Protein Albumin 12/08/19 12/08/19 09:05 09:05 Hgb Hct RDW PT Sodium 133.8 L Potassium 3.4 L Chloride 94 L Carbon Dioxide 31 H BUN 21 H Est GFR (MDRD) Non-Af 50 L Glucose 121 H POC Glucose NT-Pro-B Natriuret Pep 923 H Total Protein 5.8 L Albumin 3.1 L - Diagnostic Test Radiology reviewed: Image reviewed, Reports reviewed - EKG Interpretation by Me EKG shows normal: Sinus rhythm Rate: Normal Rhythm: NSR When compared to previous EKG there are: Previous EKG unavailable - No acute ST or T wave changes MT interval QRS and QT interval normal Procedures - Additional Procedures IV insertion Additional Procedures: Other - Right deep brachial IV placement. Sterilized probe sterilized patient double tourniquet. Ultrasound guidance used dynamically. Flash/flush successful handed off to nurse for blood draw and securing of the IV. Indication was nursing failure to obtain IV access. Patient tolerated well, no . Discharge - Discharge Clinical Impression: Cellulitis of right leg Cellulitis Qualifiers: Site of cellulitis: extremity Site of cellulitis of extremity: lower extremity Laterality: right Qualified Code(s): L03.115 - Cellulitis of right lower limb Condition: Good Disposition: ADMITTED INPATIENT Admitting Provider: Mary (Hospitalist) Unit Admitted: Medical Floor Referrals: OLIVERIO CALIX DO [Primary Care Provider] - Follow up as needed
[2019-12-08 07:43] LABS: ABSOLUTE EOSINOPHILS # (AUTO) 0.1 10^3/uL (0.0-0.6); ABSOLUTE LYMPHOCYTES (AUTO) 1.5 10^3/uL (0.5-4.7); ABSOLUTE MONOCYTES (AUTO) 0.9 10^3/uL (0.1-1.4); ABSOLUTE NEUT (AUTO) 6.3 10^3/uL (1.7-8.2); BASOPHILS % (AUTO) 0.4 % (0-2); EOSINOPHILS % (AUTO) 1.1 % (0-6); HEMATOCRIT 34.3 % (36.0-47.0); HEMOGLOBIN 11.8 g/dL (12.0-15.5); LYMPHOCYTES % (AUTO) 17.2 % (13-45); MEAN CORPUSCULAR HEMOGLOBIN 31.3 pg (27.0-33.4); MEAN CORPUSCULAR HGB CONC 34.4 g/dL (32.0-36.0); MEAN CORPUSCULAR VOLUME 91 fl (80-97); MONOCYTES % (AUTO) 10.5 % (3-13); PLATELET COUNT 313 10^3/uL (150-450); RED BLOOD COUNT 3.76 10^6/uL (3.72-5.28); SEGMENTED NEUTROPHILS % (AUTO) 70.8 % (42-78); TOTAL CELLS COUNTED % (AUTO) 100 %; WHITE BLOOD COUNT 8.9 10^3/uL (4.0-10.5)
[2019-12-08 07:53] LABS: INTERNATIONAL RATION (INR) 2.63
[2019-12-08 09:59] LABS: ALBUMIN 3.1 g/dL (3.5-5.0); ALKALINE PHOSPHATASE 66 U/L (38-126); ANION GAP 9 (5-19); ASPARTATE AMINO TRANSFERASE 26 U/L (14-36); BILIRUBIN,DIRECT 0.1 mg/dL (0.0-0.4); BILIRUBIN,TOTAL 0.6 mg/dL (0.2-1.3); BLOOD UREA NITROGEN 21 mg/dL (7-20); CALCIUM 8.8 mg/dL (8.4-10.2); CARBON DIOXIDE 31 mmol/L (22-30); CHLORIDE 94 mmol/L (98-107); GLUCOSE 121 mg/dL (75-110); POTASSIUM 3.4 mmol/L (3.6-5.0); TOTAL PROTEIN 5.8 g/dL (6.3-8.2)
[2019-12-08 10:10] LABS: NT PRO BNP 923 pg/mL (<125); TROPONIN I < 0.012 ng/mL
[2019-12-08] MEDS ORDERED: OXYCODONE-ACETAMINOPHEN 5-325 MG TABLET PO ONE (12:11)
--- NOTE | 2019-12-08 12:46 | EKG REPORT ---
SEVERITY:- ABNORMAL ECG - SINUS RHYTHM NONSPECIFIC INTRAVENTRICULAR CONDUCTION DELAY PROLONG QT INTERVAL. : Confirmed by: Ga Washington MD 08-Dec-2019 12:46:19
[2019-12-08] MEDS ORDERED: LEVALBUTEROL HCL NEB 0.63 MG/3 ML AMPUL NEB PRN (14:19)
[2019-12-08] MEDS ORDERED: IPRATROPIUM/ALBUTEROL 0.5-2.5 MG/3 ML AMPUL NEB PRN (14:19)
[2019-12-08] MEDS ORDERED: ZOLPIDEM TARTRATE 5 MG TABLET PO PRN (14:19)
[2019-12-08] MEDS ORDERED: ACETAMINOPHEN 325 MG TABLET PO PRN (14:19)
[2019-12-08] MEDS ORDERED: MAGNESIUM HYDROXIDE SUSP 30 ML UDCUP PO PRN (14:19)
[2019-12-08] MEDS ORDERED: ONDANSETRON 4 MG TAB.RAPDIS PO PRN (14:19)
[2019-12-08] MEDS ORDERED: ALBUTEROL SULFATE 0.083% NEB 2.5 MG/3 ML AMPUL NEB PRN (14:19)
--- NOTE | 2019-12-08 15:13 | PDOC H&P ---
History of Present Illness Admission Date/PCP: 12/08/19 13:05 OLIVERIO CALIX DO Patient complains of: Patient presented to the emergency room with complaints of weakness. She was also found to have multiple sores in lower extremities as well as buttocks. History of Present Illness: ANNMARIE ATKINS is a 69 year old female Patient presented to the emergency room with complaints of weakness. She was also found to have multiple sores in lower extremities as well as buttocks. Patient has a history of right lower extremity cellulitis with chronic lymphedema, venous insufficiency and decreased mobility. She does have home health come out to see her a couple of times a week. She states she was last in the hospital in July with the same issue. At the time her cultures yielded multiple organisms including group D Enterococcus. Patient had lab work done today which shows no evidence of leukocytosis and she is clinically stable with no evidence of sepsis or infection. Past Medical History Cardiac Medical History: Reports: Atrial Fibrillation, Hypertension Denies: Congestive Heart Failure, Coronary Artery Disease, DVT, Myocardial Infarction, Hyperlipidema, Pulmonary Embolism Pulmonary Medical History: Denies: Asthma, Chronic Obstructive Pulmonary Disease (COPD), Sleep Apnea Neurological Medical History: Denies: Seizures Endocrine Medical History: Reports: Diabetes Mellitus Type 2 Denies: Hyperthyroidism, Hypothyroidism GI Medical History: Denies: Cirrhosis, Gastroesophageal Reflux Disease, Hepatitis Musculoskeltal Medical History: Reports: Arthritis - Steroid-dependent, Gout Psychiatric Medical History: Denies: Depression Infectious Medical History: Denies: Clostridium Difficile, Methicillin-Resistant Staph Aureus Past Surgical History Past Surgical History: Reports: Cholecystectomy Social History Smoking Status: Never Smoker Frequency of Alcohol Use: None Hx Recreational Drug Use: No Drugs: None Hx Prescription Drug Abuse: No - Advance Directive Resuscitation Status: Full Code Family History Family History: Reviewed & Not Pertinent Parental Family History Reviewed: No Children Family History Reviewed: No Sibling(s) Family History Reviewed.: No Medication/Allergy Home Medications: Diltiazem HCl [Diltiazem 24Hr ER (Cd)] 180 mg PO Q12 07/25/16 Folic Acid 1 mg PO DAILY 07/25/16 Furosemide 40 mg PO BID 07/25/16 Magnesium Oxide 400 mg PO QPM 07/25/16 Metformin HCl 500 mg PO BIDBS 07/25/16 Rivaroxaban [Xarelto] 20 mg PO QPM 07/25/16 Sotalol HCl [Sotalol] 160 mg PO BID 07/25/16 Tramadol HCl 100 mg PO TIDP PRN 07/25/16 Gabapentin [Neurontin 300 mg Capsule] 600 mg PO Q12 08/04/19 Multivitamin [Chewable-Tamiko] 1 each PO DAILY 12/08/19 Allergies/Adverse Reactions: clindamycin Allergy (Verified 09/08/19 10:22) digoxin Allergy (Verified 08/04/19 13:30) spironolactone Allergy (Verified 08/04/19 13:30) povidone-iodine [From Betadine] Adverse Reaction (Verified 07/24/16 13:33) soap [From Betadine] Adverse Reaction (Verified 07/24/16 13:33) Review of Systems Constitutional: PRESENT: weight loss Cardiovascular: PRESENT: edema. ABSENT: chest pain Gastrointestinal: ABSENT: nausea, vomiting Neurological: PRESENT: weakness Physical Exam Vital Signs: Temp Pulse Resp BP Pulse Ox 98.1 F 59 L 18 112/55 L 95 12/08/19 05:17 12/08/19 05:17 12/08/19 11:01 12/08/19 11:01 12/08/19 11:01 Intake & Output 12/07/19 12/08/19 12/09/19 06:59 06:59 06:59 Weight 167 kg General appearance: PRESENT: no acute distress, morbidly obese Head exam: PRESENT: atraumatic, normocephalic Eye exam: PRESENT: conjunctiva pink, EOMI, PERRLA. ABSENT: scleral icterus Ear exam: PRESENT: normal external ear exam Mouth exam: PRESENT: moist, tongue midline Neck exam: ABSENT: carotid bruit, JVD, lymphadenopathy, thyromegaly Respiratory exam: PRESENT: clear to auscultation sandee. ABSENT: rales, rhonchi, wheezes Cardiovascular exam: PRESENT: RRR, +S1, +S2. ABSENT: diastolic murmur, rubs, s ystolic murmur Pulses: PRESENT: normal dorsalis pedis pul Vascular exam: PRESENT: normal capillary refill GI/Abdominal exam: PRESENT: normal bowel sounds, soft. ABSENT: distended, guarding, mass, organolmegaly, rebound, tenderness Rectal exam: PRESENT: deferred Extremities exam: PRESENT: full ROM, +2 edema, other - dry scaly skin, dressing lower extremities Large blister R 1st toe. ABSENT: calf tenderness, clubbing, pedal edema Neurological exam: PRESENT: alert, awake, oriented to person, oriented to place, oriented to time, oriented to situation, CN II-XII grossly intact. ABSENT: motor sensory deficit Psychiatric exam: PRESENT: appropriate affect, normal mood. ABSENT: homicidal ideation, suicidal ideation Skin exam: PRESENT: rash, skin tears, other - Multiple wounds and bedsores as pe r nursing documentation. ABSENT: cyanosis Results Laboratory Results: 12/08/19 07:09 12/08/19 09:05 12/08/19 12/08/19 12/08/19 06:13 07:09 07:09 WBC 8.9 RBC 3.76 Hgb 11.8 L Hct 34.3 L MCV 91 MCH 31.3 MCHC 34.4 RDW 16.0 H Plt Count 313 Seg Neutrophils % 70.8 Sodium Cancelled Potassium Cancelled Chloride Cancelled Carbon Dioxide Cancelled Anion Gap Cancelled BUN Cancelled Creatinine Cancelled Est GFR ( Amer) Cancelled Est GFR (Non-Af Amer) Cancelled Glucose Cancelled Lactic Acid 1.5 Calcium Cancelled Total Bilirubin Cancelled AST Cancelled Alkaline Phosphatase Cancelled Total Protein Cancelled Albumin Cancelled 12/08/19 12/08/19 12/08/19 09:05 09:05 12:10 WBC RBC Hgb Hct MCV MCH MCHC RDW Plt Count Seg Neutrophils % Sodium 133.8 L Potassium 3.4 L Chloride 94 L Carbon Dioxide 31 H Anion Gap 9 BUN 21 H Creatinine 1.09 Est GFR ( Amer) > 60 Est GFR (Non-Af Amer) Glucose 121 H Lactic Acid 1.2 1.3 Calcium 8.8 Total Bilirubin 0.6 AST 26 Alkaline Phosphatase 66 Total Protein 5.8 L Albumin 3.1 L 12/08/19 12/08/19 06:13 09:05 Troponin I Cancelled < 0.012 NT-Pro-B Natriuret Pep Cancelled 923 H Assessment and Plan - Diagnosis (1) Cellulitis of right leg Is this a current diagnosis for this admission?: Yes Plan: Will be started on Unasyn. I doubt that she has any active infection at this time however been on oral antibiotics at home. Wound cultures will be obtained. She will be placed on empiric antibiotics and wound care consult will be obtained (2) Atrial fibrillation Qualifiers: Atrial fibrillation type: permanent Qualified Code(s): I48.21 - Permanent atrial fibrillation Is this a current diagnosis for this admission?: Yes Plan: Patient is on Xarelto (3) Lymphedema of both lower extremities Is this a current diagnosis for this admission?: Yes Plan: Chronic (4) Morbid obesity with BMI of 60.0-69.9, adult Is this a current diagnosis for this admission?: Yes Plan: Weight loss strongly suggested - Plan Summary Summary: Patient will likely need rehab at discharge as she has multiple wounds and she is unable to care for this - Time Time Spent with patient: 25-34 minutes Medications reviewed and adjusted accordingly: Yes Anticipated Discharge Disposition: [facility] Facility Anticipated Discharge Timeframe: within 48 hours - Inpatient Certification Based on my medical assessment, after consideration of the patient's comorbidities, presenting symptoms, or acuity I expect that the services needed warrant INPATIENT care.: Yes Medical Necessity: Need Close Monitoring Due to Risk of Patient Decompensation
--- NOTE | 2019-12-08 15:34 | RADIOLOGY REPORT (SQ) ---
EXAM DESCRIPTION: CHEST SINGLE VIEW IMAGES COMPLETED DATE/TIME: 12/08/2019 3:20 pm REASON FOR STUDY: Leg swelling COMPARISON: 07/24/2016 EXAM PARAMETERS: NUMBER OF VIEWS: One view. TECHNIQUE: Single frontal radiographic view of the chest acquired. RADIATION DOSE: NA LIMITATIONS: None. FINDINGS: LUNGS AND PLEURA: No opacities, masses or pneumothorax. No pleural effusion. MEDIASTINUM AND HILAR STRUCTURES: No masses. Contour normal. HEART AND VASCULAR STRUCTURES: Mild cardiac enlargement. No failure. BONES: No acute findings. HARDWARE: None in the chest. OTHER: No other significant finding. IMPRESSION: Mild cardiac enlargement. No overt failure. TECHNICAL DOCUMENTATION: JOB ID: [id number] 2010 [employer]- All Rights Reserved Reading location - IP/workstation name: [email or web address] [email or web address]
[2019-12-08] MEDS ORDERED: AMPICILLIN SODIUM/SULBACTAM NA 2 GM in NORMAL SALINE 100 ML IV SCH (18:00)
[2019-12-09] MEDS: AMPICILLIN SODIUM/SULBACTAM NA 3 GM in NORMAL SALINE 100 ML IV SCH ×5 (00:20→17:06)
[2019-12-09] MEDS: OXYCODONE-ACETAMINOPHEN 5-325 MG TABLET PO PRN ×3 (02:31→22:07)
[2019-12-09] MEDS: DOCUSATE SODIUM 100 MG CAPSULE PO SCH (09:22)
[2019-12-09] MEDS ORDERED: TRAMADOL HCL 50 MG TABLET PO PRN (12:14)
--- NOTE | 2019-12-09 12:28 | PDOC PROGRESS REPORT ---
Subjective Progress Note for:: 12/09/19 Reason For Visit: CELLULITIS, MORBID OBESITY Physical Exam Vital Signs: Temp Pulse Resp BP Pulse Ox 98.7 F 134 H 18 144/61 H 93 12/09/19 12:00 12/09/19 12:00 12/09/19 12:00 12/09/19 12:00 12/09/19 12:00 Intake & Output 12/08/19 12/09/19 12/10/19 06:59 06:59 06:59 Intake Total 460 Output Total 100 200 Balance 360 -200 Weight 167 kg 73.9 kg 164.6 kg General appearance: PRESENT: no acute distress, morbidly obese, well-developed, well-nourished Head exam: PRESENT: atraumatic, normocephalic Eye exam: PRESENT: conjunctiva pink, EOMI, PERRLA. ABSENT: scleral icterus Ear exam: PRESENT: normal external ear exam Mouth exam: PRESENT: moist, tongue midline Neck exam: ABSENT: carotid bruit, JVD, lymphadenopathy, thyromegaly Respiratory exam: PRESENT: clear to auscultation sandee, unlabored. ABSENT: rales, rhonchi, wheezes Cardiovascular exam: PRESENT: RRR, +S1, +S2. ABSENT: diastolic murmur, rubs, systolic murmur Pulses: PRESENT: normal dorsalis pedis pul Vascular exam: PRESENT: normal capillary refill GI/Abdominal exam: PRESENT: normal bowel sounds, soft. ABSENT: distended, guarding, mass, organolmegaly, rebound, tenderness Rectal exam: PRESENT: deferred Extremities exam: PRESENT: full ROM, pedal edema, +2 edema, other. ABSENT: calf tenderness, clubbing Neurological exam: PRESENT: alert, awake, oriented to person, oriented to place, oriented to time, oriented to situation, CN II-XII grossly intact. ABSENT: motor sensory deficit Psychiatric exam: PRESENT: appropriate affect, normal mood. ABSENT: homicidal ideation, suicidal ideation Skin exam: PRESENT: rash, skin tears, warm, other - Blister on R toe. ABSENT: cyanosis Results Laboratory Results: 12/08/19 07:09 12/08/19 09:05 12/08/19 12:10 Lactic Acid 1.3 12/08/19 12/08/19 06:13 09:05 Troponin I Cancelled < 0.012 NT-Pro-B Natriuret Pep Cancelled 923 H Impressions: Chest X-Ray 12/08/19 00:00 IMPRESSION: Mild cardiac enlargement. No overt failure. Assessment and Plan - Diagnosis (1) Cellulitis of right leg Is this a current diagnosis for this admission?: Yes Plan: Will be started on Unasyn. I doubt that she has any active infection at this time however been on oral antibiotics at home. Wound cultures will be obtained. She will be placed on empiric antibiotics and wound care consult will be obtained Continue local wound care (2) Atrial fibrillation Qualifiers: Atrial fibrillation type: permanent Qualified Code(s): I48.21 - Permanent atrial fibrillation Is this a current diagnosis for this admission?: Yes Plan: Patient is on Xarelto she is currently sinus (3) Lymphedema of both lower extremities Is this a current diagnosis for this admission?: Yes Plan: Chronic, continue with local care. Awaiting wound consult (4) Morbid obesity with BMI of 60.0-69.9, adult Is this a current diagnosis for this admission?: Yes - Plan Summary Summary: Wound cultures currently growing gram-positive clusters as well as gram-negative rods. Patient is currently on Unasyn. Add doxycycline for empiric possible MRSA coverage pending results. - Time Time Spent with patient: 15-24 minutes Medications reviewed and adjusted accordingly: Yes Anticipated Discharge Disposition: [facility] Anticipated Discharge Timeframe: within 48 hours
[2019-12-09] MEDS: DILTIAZEM HCL 180 MG CAPSULE.CR PO SCH ×2 (13:29→22:08)
[2019-12-09] MEDS: DOXYCYCLINE HYCLATE 100 MG TABLET PO SCH (17:07)
[2019-12-09] MEDS: METFORMIN HCL 500 MG TABLET PO SCH (17:08)
[2019-12-09] MEDS: SOTALOL HCL 80 MG TABLET PO SCH (17:08)
[2019-12-09] MEDS: FUROSEMIDE 40 MG TABLET PO SCH (17:09)
[2019-12-09] MEDS: RIVAROXABAN 10 MG TABLET PO SCH (17:10)
[2019-12-09] MEDS: MAGNESIUM OXIDE 400 MG TABLET PO SCH (17:10)
[2019-12-09] MEDS ORDERED: FUROSEMIDE 20 MG TABLET PO SCH (18:00)
[2019-12-09] MEDS: GABAPENTIN 300 MG CAPSULE PO SCH (22:09)
[2019-12-10] MEDS: AMPICILLIN SODIUM/SULBACTAM NA 3 GM in NORMAL SALINE 100 ML IV SCH ×4 (00:52→17:09)
[2019-12-10] MEDS: DOXYCYCLINE HYCLATE 100 MG TABLET PO SCH ×2 (06:42→17:09)
[2019-12-10 06:46] LABS: ABSOLUTE EOSINOPHILS # (AUTO) 0.2 10^3/uL (0.0-0.6); ABSOLUTE LYMPHOCYTES (AUTO) 1.8 10^3/uL (0.5-4.7); ABSOLUTE MONOCYTES (AUTO) 0.9 10^3/uL (0.1-1.4); ABSOLUTE NEUT (AUTO) 5.2 10^3/uL (1.7-8.2); BASOPHILS % (AUTO) 0.5 % (0-2); HEMATOCRIT 33.8 % (36.0-47.0); HEMOGLOBIN 11.4 g/dL (12.0-15.5); LYMPHOCYTES % (AUTO) 22.1 % (13-45); MEAN CORPUSCULAR HEMOGLOBIN 30.6 pg (27.0-33.4); MEAN CORPUSCULAR HGB CONC 33.6 g/dL (32.0-36.0); MEAN CORPUSCULAR VOLUME 91 fl (80-97); MONOCYTES % (AUTO) 11.5 % (3-13); PLATELET COUNT 280 10^3/uL (150-450); RED BLOOD COUNT 3.72 10^6/uL (3.72-5.28); RED CELL DISTRIBUTION WIDTH 16.4 % (11.5-14.0); SEGMENTED NEUTROPHILS % (AUTO) 63.9 % (42-78); TOTAL CELLS COUNTED % (AUTO) 100 %; WHITE BLOOD COUNT 8.1 10^3/uL (4.0-10.5)
[2019-12-10 06:57] LABS: ANION GAP 8 (5-19); BLOOD UREA NITROGEN 11 mg/dL (7-20); CALCIUM 8.1 mg/dL (8.4-10.2); CARBON DIOXIDE 32 mmol/L (22-30); CHLORIDE 95 mmol/L (98-107); GLUCOSE 85 mg/dL (75-110); POTASSIUM 3.4 mmol/L (3.6-5.0)
[2019-12-10] MEDS: FOLIC ACID 1 MG TABLET PO SCH (09:05)
[2019-12-10] MEDS: SOTALOL HCL 80 MG TABLET PO SCH ×2 (09:05→17:09)
[2019-12-10] MEDS: DOCUSATE SODIUM 100 MG CAPSULE PO SCH (09:05)
[2019-12-10] MEDS: MULTIVITAMIN TABLET PO SCH (09:06)
[2019-12-10] MEDS: METFORMIN HCL 500 MG TABLET PO SCH ×2 (09:06→16:13)
[2019-12-10] MEDS: GABAPENTIN 300 MG CAPSULE PO SCH ×2 (09:06→21:57)
[2019-12-10] MEDS: FUROSEMIDE 40 MG TABLET PO SCH ×2 (09:06→17:08)
[2019-12-10] MEDS: DILTIAZEM HCL 180 MG CAPSULE.CR PO SCH ×2 (09:07→23:26)
[2019-12-10] MEDS ORDERED: MULTIVITAMIN PO SCH (10:00)
[2019-12-10] MEDS: OXYCODONE-ACETAMINOPHEN 5-325 MG TABLET PO PRN ×2 (13:40→19:46)
[2019-12-10] MEDS ORDERED: POTASSIUM CHLORIDE 10 MEQ TABLET.ER PO ONE (15:46)
--- NOTE | 2019-12-10 16:06 | PDOC PROGRESS REPORT ---
Subjective Progress Note for:: 12/10/19 Reason For Visit: CELLULITIS, MORBID OBESITY Physical Exam Vital Signs: Temp Pulse Resp BP Pulse Ox 98.0 F 118 H 18 115/71 97 12/10/19 10:00 12/10/19 07:58 12/10/19 07:58 12/10/19 07:58 12/10/19 07:58 Intake & Output 12/09/19 12/10/19 12/11/19 06:59 06:59 06:59 Intake Total 460 100 118 Output Total 100 1600 Balance 360 -1500 118 Weight 73.9 kg 212.9 kg General appearance: PRESENT: no acute distress, morbidly obese, well-nourished Head exam: PRESENT: atraumatic, normocephalic Eye exam: PRESENT: conjunctiva pink, EOMI, PERRLA. ABSENT: scleral icterus Mouth exam: PRESENT: moist, tongue midline Neck exam: ABSENT: carotid bruit, JVD, lymphadenopathy, thyromegaly Respiratory exam: PRESENT: clear to auscultation sandee, unlabored. ABSENT: rales, rhonchi, wheezes Cardiovascular exam: PRESENT: RRR, +S1, +S2. ABSENT: diastolic murmur, rubs, systolic murmur Pulses: PRESENT: normal dorsalis pedis pul Vascular exam: PRESENT: normal capillary refill GI/Abdominal exam: PRESENT: normal bowel sounds, soft. ABSENT: distended, guarding, mass, organolmegaly, rebound, tenderness Rectal exam: PRESENT: deferred Extremities exam: PRESENT: other. ABSENT: calf tenderness, clubbing, pedal edema Neurological exam: PRESENT: alert, awake, oriented to person, oriented to place, oriented to time, oriented to situation, CN II-XII grossly intact. ABSENT: motor sensory deficit Psychiatric exam: PRESENT: appropriate affect, normal mood. ABSENT: homicidal ideation, suicidal ideation Skin exam: PRESENT: dry, intact, warm. ABSENT: cyanosis, rash Results Laboratory Results: 12/10/19 05:30 12/10/19 05:30 12/10/19 12/10/19 05:30 05:30 WBC 8.1 RBC 3.72 Hgb 11.4 L Hct 33.8 L MCV 91 MCH 30.6 MCHC 33.6 RDW 16.4 H Plt Count 280 Seg Neutrophils % 63.9 Sodium 134.6 L Potassium 3.4 L Chloride 95 L Carbon Dioxide 32 H Anion Gap 8 BUN 11 Creatinine 0.61 Est GFR ( Amer) > 60 Glucose 85 Calcium 8.1 L 12/08/19 12/08/19 06:13 09:05 Troponin I Cancelled < 0.012 NT-Pro-B Natriuret Pep Cancelled 923 H Impressions: Chest X-Ray 12/08/19 00:00 IMPRESSION: Mild cardiac enlargement. No overt failure. Assessment and Plan - Diagnosis (1) Cellulitis of right leg Is this a current diagnosis for this admission?: Yes (2) Atrial fibrillation Qualifiers: Atrial fibrillation type: permanent Qualified Code(s): I48.21 - Permanent atrial fibrillation Is this a current diagnosis for this admission?: Yes (3) Lymphedema of both lower extremities Is this a current diagnosis for this admission?: Yes (4) Morbid obesity with BMI of 60.0-69.9, adult Is this a current diagnosis for this admission?: Yes - Plan Summary Summary: Wound cultures currently growing gram-positive clusters as well as gram-negative rods. Patient is currently on Unasyn. Add doxycycline for empiric possible MRSA coverage pending results. Wound culture is currently yielding gram-positive cocci in clusters, gram- negative rods as well as gram-positive cocci in chains. Patient is on date 3 of ampicillin sulbactam as well as day 2 of doxycycline to cover potential MRSA she otherwise remains hemodynamically stable - Time Time Spent with patient: 15-24 minutes Medications reviewed and adjusted accordingly: Yes Anticipated Discharge Disposition: [facility] Facility Anticipated Discharge Timeframe: within 48 hours
[2019-12-10] MEDS: RIVAROXABAN 10 MG TABLET PO SCH (17:09)
[2019-12-10] MEDS: MAGNESIUM OXIDE 400 MG TABLET PO SCH (17:09)
[2019-12-11] MEDS: AMPICILLIN SODIUM/SULBACTAM NA 3 GM in NORMAL SALINE 100 ML IV SCH ×5 (00:08→23:25)
[2019-12-11] MEDS: DOXYCYCLINE HYCLATE 100 MG TABLET PO SCH (05:29)
[2019-12-11] MEDS: OXYCODONE-ACETAMINOPHEN 5-325 MG TABLET PO PRN ×3 (05:29→20:56)
[2019-12-11] MEDS: METFORMIN HCL 500 MG TABLET PO SCH ×2 (07:47→17:28)
--- NOTE | 2019-12-11 10:41 | PDOC PROGRESS REPORT ---
Subjective Progress Note for:: 12/11/19 Subjective:: Patient offers no new complaint. She is sleeping quietly. Reason For Visit: CELLULITIS, MORBID OBESITY Physical Exam Vital Signs: Temp Pulse Resp BP Pulse Ox 98.8 F 128 H 20 109/67 91 L 12/11/19 08:28 12/11/19 08:04 12/11/19 08:04 12/11/19 08:04 12/11/19 08:04 Intake & Output 12/10/19 12/11/19 12/12/19 06:59 06:59 05:59 Intake Total 100 1074 Output Total 1600 450 Balance -1500 624 Weight 212.9 kg 164.2 kg General appearance: PRESENT: no acute distress, morbidly obese, well-developed, well-nourished Head exam: PRESENT: atraumatic, normocephalic Eye exam: PRESENT: conjunctiva pink, EOMI, PERRLA. ABSENT: scleral icterus Ear exam: PRESENT: normal external ear exam Mouth exam: PRESENT: moist, tongue midline Neck exam: ABSENT: carotid bruit, JVD, lymphadenopathy, thyromegaly Respiratory exam: PRESENT: clear to auscultation sandee. ABSENT: rales, rhonchi, wheezes Cardiovascular exam: PRESENT: irregular rhythm, +S1, +S2. ABSENT: diastolic murmur, rubs, systolic murmur Pulses: PRESENT: normal dorsalis pedis pul Vascular exam: PRESENT: normal capillary refill GI/Abdominal exam: PRESENT: normal bowel sounds, soft. ABSENT: distended, guarding, mass, organolmegaly, rebound, tenderness Rectal exam: PRESENT: deferred Extremities exam: PRESENT: full ROM, +2 edema. ABSENT: calf tenderness, clubbi ng, pedal edema Neurological exam: PRESENT: alert, awake, oriented to person, oriented to place, oriented to time, oriented to situation, CN II-XII grossly intact. ABSENT: mo tor sensory deficit Psychiatric exam: PRESENT: appropriate affect, normal mood. ABSENT: homicidal ideation, suicidal ideation Skin exam: PRESENT: rash, other - Dry scaly skin. Multiple excoriations, ecchymosis and contusions throughout skin area. Pressure points in the sacral area Blister on right first toe area. ABSENT: cyanosis Results Laboratory Results: 12/10/19 05:30 12/10/19 05:30 12/08/19 19:15 Leg - Sore Gram Stain - Final 12/08/19 19:15 Leg - Sore Wound Culture - Final Staphylococcus Aureus Proteus Mirabilis Enterococcus Faecalis(Group D) 12/08/19 12/08/19 06:13 09:05 Troponin I Cancelled < 0.012 NT-Pro-B Natriuret Pep Cancelled 923 H Impressions: Chest X-Ray 12/08/19 00:00 IMPRESSION: Mild cardiac enlargement. No overt failure. Assessment and Plan - Diagnosis (1) Cellulitis of right leg Is this a current diagnosis for this admission?: Yes Plan: Will be started on Unasyn. I doubt that she has any active infection at this time however been on oral antibiotics at home. Wound cultures will be obtained. She will be placed on empiric antibiotics and wound care consult will be obtained Continue local wound care 12/10 MSSA, Proteus as well as Enterococcus on wound cultures currently on ampicillin sulbactam (2) Atrial fibrillation Qualifiers: Atrial fibrillation type: permanent Qualified Code(s): I48.21 - Permanent atrial fibrillation Is this a current diagnosis for this admission?: Yes (3) Lymphedema of both lower extremities Is this a current diagnosis for this admission?: Yes Plan: Chronic, continue with local care. Appreciate wound consult (4) Morbid obesity with BMI of 60.0-69.9, adult Is this a current diagnosis for this admission?: Yes Plan: Weight loss strongly suggested (5) Atrial fibrillation with controlled ventricular rate Is this a current diagnosis for this admission?: Yes Plan: Continue Xarelto sotalol and diltiazem - Plan Summary Summary: Wound cultures currently growing gram-positive clusters as well as gram-negative rods. Patient is currently on Unasyn. Add doxycycline for empiric possible MRSA coverage pending results. Wound culture is currently yielding gram-positive cocci in clusters, gram- negative rods as well as gram-positive cocci in chains. Patient is on date 3 of ampicillin sulbactam as well as day 2 of doxycycline to cover potential MRSA she otherwise remains hemodynamically stable 12/10. Wound culture currently yielding staph aureus, Proteus as well as Enterococcus faecalis. There is good sensitivity to penicillin. Patient is currently on ampicillin sulbactam and I will continue with this through the weekend however this can be changed to a penicillin derivative discharge. I will discontinue the doxycycline that she had received for possible MRSA since she has MSSA - Time Time Spent with patient: 15-24 minutes Medications reviewed and adjusted accordingly: Yes Anticipated Discharge Disposition: Detention Facility Anticipated Discharge Timeframe: within 48 hours
[2019-12-11] MEDS: DOCUSATE SODIUM 100 MG CAPSULE PO SCH (10:43)
[2019-12-11] MEDS: MULTIVITAMIN TABLET PO SCH (10:43)
[2019-12-11] MEDS: SOTALOL HCL 80 MG TABLET PO SCH ×2 (10:43→17:28)
[2019-12-11] MEDS: DILTIAZEM HCL 180 MG CAPSULE.CR PO SCH ×2 (10:43→20:59)
[2019-12-11] MEDS: FOLIC ACID 1 MG TABLET PO SCH (10:43)
[2019-12-11] MEDS: GABAPENTIN 300 MG CAPSULE PO SCH ×2 (10:43→20:59)
[2019-12-11] MEDS: FUROSEMIDE 40 MG TABLET PO SCH ×2 (10:43→17:28)
[2019-12-11] MEDS: MAGNESIUM OXIDE 400 MG TABLET PO SCH (17:28)
[2019-12-11] MEDS: RIVAROXABAN 10 MG TABLET PO SCH (17:28)
[2019-12-12] MEDS: OXYCODONE-ACETAMINOPHEN 5-325 MG TABLET PO PRN ×2 (05:12→21:06)
[2019-12-12] MEDS: AMPICILLIN SODIUM/SULBACTAM NA 3 GM in NORMAL SALINE 100 ML IV SCH ×4 (05:12→23:45)
[2019-12-12 06:24] LABS: ABSOLUTE EOSINOPHILS # (AUTO) 0.3 10^3/uL (0.0-0.6); ABSOLUTE LYMPHOCYTES (AUTO) 1.3 10^3/uL (0.5-4.7); ABSOLUTE MONOCYTES (AUTO) 0.8 10^3/uL (0.1-1.4); ABSOLUTE NEUT (AUTO) 3.5 10^3/uL (1.7-8.2); BASOPHILS % (AUTO) 0.3 % (0-2); EOSINOPHILS % (AUTO) 4.3 % (0-6); HEMATOCRIT 31.9 % (36.0-47.0); HEMOGLOBIN 10.7 g/dL (12.0-15.5); LYMPHOCYTES % (AUTO) 22.5 % (13-45); MEAN CORPUSCULAR HEMOGLOBIN 31.1 pg (27.0-33.4); MEAN CORPUSCULAR HGB CONC 33.4 g/dL (32.0-36.0); MEAN CORPUSCULAR VOLUME 93 fl (80-97); MONOCYTES % (AUTO) 13.5 % (3-13); PLATELET COUNT 287 10^3/uL (150-450); RED BLOOD COUNT 3.43 10^6/uL (3.72-5.28); RED CELL DISTRIBUTION WIDTH 16.7 % (11.5-14.0); SEGMENTED NEUTROPHILS % (AUTO) 59.4 % (42-78); TOTAL CELLS COUNTED % (AUTO) 100 %; WHITE BLOOD COUNT 5.9 10^3/uL (4.0-10.5)
[2019-12-12 06:44] LABS: ANION GAP 8 (5-19); BLOOD UREA NITROGEN 8 mg/dL (7-20); CALCIUM 7.9 mg/dL (8.4-10.2); CARBON DIOXIDE 32 mmol/L (22-30); CHLORIDE 92 mmol/L (98-107); GLUCOSE 159 mg/dL (75-110); POTASSIUM 3.4 mmol/L (3.6-5.0)
[2019-12-12] MEDS: METFORMIN HCL 500 MG TABLET PO SCH ×2 (08:17→17:53)
[2019-12-12] MEDS: MULTIVITAMIN TABLET PO SCH (09:45)
[2019-12-12] MEDS: DOCUSATE SODIUM 100 MG CAPSULE PO SCH (09:45)
[2019-12-12] MEDS: SOTALOL HCL 80 MG TABLET PO SCH ×2 (09:45→17:55)
[2019-12-12] MEDS: GABAPENTIN 300 MG CAPSULE PO SCH ×2 (09:46→21:05)
[2019-12-12] MEDS: FOLIC ACID 1 MG TABLET PO SCH (09:46)
[2019-12-12] MEDS: FUROSEMIDE 40 MG TABLET PO SCH ×2 (09:46→17:55)
[2019-12-12] MEDS: DILTIAZEM HCL 180 MG CAPSULE.CR PO SCH ×2 (09:46→21:05)
--- NOTE | 2019-12-12 17:49 | PDOC PROGRESS REPORT ---
Subjective Subjective:: Per Previous Physician: "ANNMARIE ATKINS is a 69 year old female Patient presented to the emergency room with complaints of weakness. She was also found to have multiple sores in lower extremities as well as buttocks. Cassie jim has a history of right lower extremity cellulitis with chronic lymphedema, venous insufficiency and decreased mobility. She does have home health come out to see her a couple of times a week. She states she was last in the hospital in July with the same issue. At the time her cultures yielded multiple organisms including group D Enterococcus. Patient had lab work done today which shows no evidence of leukocytosis and she is clinically stable with no evidence of sepsis or infection." 12/12/2019 Patient states her cellulitis is gradually improving in her right leg. I believe she has significant fungal infection of her skin folds as well. I have started her on nystatin cream although she may need a course of oral fluconazole as she likely has whole body skin fold fungal infection due to severe morbid obesity with a BMI of 61.8. She is continued on Unasyn for now but according to sensitivity results she can be discharged on Augmentin p.o. He will certainly need home health when she is discharged as I doubt she can care for her own wounds at home given her severely limited mobility due to her body habitus. Reason For Visit: CELLULITIS, MORBID OBESITY Physical Exam Vital Signs: Temp Pulse Resp BP Pulse Ox 98.9 F 69 12 98/40 L 92 12/12/19 15:58 12/12/19 15:58 12/12/19 15:58 12/12/19 15:58 12/12/19 16:13 Intake & Output 12/11/19 12/12/19 12/13/19 07:59 06:59 06:59 Intake Total Output Total Balance Weight Exam: General appearance: PRESENT: no acute distress, well-developed, well-nourished, morbidly obese with a BMI of 61.8 Head exam: PRESENT: atraumatic, normocephalic Eye exam: PRESENT: conjunctiva pink. ABSENT: scleral icterus Mouth exam: PRESENT: moist Respiratory exam: PRESENT: clear to auscultation sandee. ABSENT: rales, rhonchi, wheezes Cardiovascular exam: PRESENT: RRR. ABSENT: diastolic murmur, rubs, systolic murmur GI/Abdominal exam: PRESENT: normal bowel sounds, soft. ABSENT: distended, guarding, mass, organolmegaly, rebound, tenderness Neurological exam: PRESENT: alert, awake, oriented to person, oriented to place, oriented to time, oriented to situation Psychiatric exam: PRESENT: appropriate affect, normal mood Skin exam: PRESENT: dry, intact, warm; right posterior knee skin folds with erythema and dry scaly/flaky rash consistent with fungal infection Results Laboratory Results: 12/12/19 06:05 12/12/19 06:05 12/12/19 12/12/19 06:05 06:05 WBC 5.9 RBC 3.43 L Hgb 10.7 L Hct 31.9 L MCV 93 MCH 31.1 MCHC 33.4 RDW 16.7 H Plt Count 287 Seg Neutrophils % 59.4 Sodium 132.1 L Potassium 3.4 L Chloride 92 L Carbon Dioxide 32 H Anion Gap 8 BUN 8 Creatinine 0.69 Est GFR ( Amer) > 60 Glucose 159 H Calcium 7.9 L 12/08/19 12/08/19 06:13 09:05 Troponin I Cancelled < 0.012 NT-Pro-B Natriuret Pep Cancelled 923 H Impressions: Chest X-Ray 12/08/19 00:00 IMPRESSION: Mild cardiac enlargement. No overt failure. Assessment and Plan - Plan Summary Summary: Per Previous Physician: "Wound cultures currently growing gram-positive clusters as well as gram- negative rods. Patient is currently on Unasyn. Add doxycycline for empiric possible MRSA coverage pending results. Wound culture is currently yielding gram-positive cocci in clusters, gram- negative rods as well as gram-positive cocci in chains. Patient is on date 3 of ampicillin sulbactam as well as day 2 of doxycycline to cover potential MRSA she otherwise remains hemodynamically stable 12/10. Wound culture currently yielding staph aureus, Proteus as well as Enterococcus faecalis. There is good sensitivity to penicillin. Patient is currently on ampicillin sulbactam and I will continue with this through the weekend however this can be changed to a penicillin derivative discharge. I will discontinue the doxycycline that she had received for possible MRSA since she has MSSA" (1) Cellulitis of right leg Per Previous Physician: "Will be started on Unasyn. I doubt that she has any active infection at this time however been on oral antibiotics at home. Wound cultures will be obtained. 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 Appreciate wound consult (4) Morbid obesity with BMI of 60.0-69.9, adult Is this a current diagnosis for this admission?: Yes Plan: Weight loss strongly suggested (5) Atrial fibrillation with controlled ventricular rate Is this a current diagnosis for this admission?: Yes Plan: Continue Xarelto sotalol and diltiazem Rate controlled on home medications - Time Time Spent with patient: 15-24 minutes Medications reviewed and adjusted accordingly: Yes Anticipated Discharge Disposition: Home with Home Health Anticipated Discharge Timeframe: within 24 hours - Inpatient Certification Based on my medical assessment, after consideration of the patient's comorbidities, presenting symptoms, or acuity I expect that the services needed warrant INPATIENT care.: Yes I certify that my determination is in accordance with my understanding of Medicare's requirements for reasonable and necessary INPATIENT services [42 CFR 412.3e].: Yes Medical Necessity: Significant Comorbidiites Make Outpatient Treatment Too Risky, Need Close Monitoring Due to Risk of Patient Decompensation, Need for IV Antibiotics, Risk of Complication if Not Cared For in Hospital, Risk of Diagnosis Which Will Require Inpatient Eval/Care/Monitoring
[2019-12-12] MEDS: RIVAROXABAN 10 MG TABLET PO SCH (17:52)
[2019-12-12] MEDS: MAGNESIUM OXIDE 400 MG TABLET PO SCH (17:54)
[2019-12-12] MEDS: NYSTATIN CREAM 15 GM TP SCH (18:43)
[2019-12-12] MEDS ORDERED: NYSTATIN CREAM 15 GM ONE (19:55)
[2019-12-13] MEDS: AMPICILLIN SODIUM/SULBACTAM NA 3 GM in NORMAL SALINE 100 ML IV SCH ×2 (05:42→14:31)
[2019-12-13] MEDS: GABAPENTIN 300 MG CAPSULE PO SCH (09:18)
[2019-12-13] MEDS: FOLIC ACID 1 MG TABLET PO SCH (09:19)
[2019-12-13] MEDS: DILTIAZEM HCL 180 MG CAPSULE.CR PO SCH (09:19)
[2019-12-13] MEDS: MULTIVITAMIN TABLET PO SCH (09:19)
[2019-12-13] MEDS: METFORMIN HCL 500 MG TABLET PO SCH (09:20)
[2019-12-13] MEDS: SOTALOL HCL 80 MG TABLET PO SCH (09:20)
[2019-12-13] MEDS: DOCUSATE SODIUM 100 MG CAPSULE PO SCH (09:20)
[2019-12-13] MEDS: FUROSEMIDE 40 MG TABLET PO SCH (09:21)
[2019-12-13] MEDS: NYSTATIN CREAM 15 GM TP SCH (09:21)
[2019-12-13] MEDS: OXYCODONE-ACETAMINOPHEN 5-325 MG TABLET PO PRN (13:25)
--- NOTE | 2019-12-13 13:33 | PDOC TRANSFER SUMMARY ---
Impression - Admit/DC Date/PCP Admission Date/Primary Care Provider: 12/08/19 13:05 OLIVERIO CALIX, Discharge Date: 12/13/19 - Discharge Diagnosis (1) Cellulitis Is this a current diagnosis for this admission?: Yes (2) Cellulitis of right leg Is this a current diagnosis for this admission?: Yes (3) Atrial fibrillation Is this a current diagnosis for this admission?: Yes (4) Morbid obesity with BMI of 60.0-69.9, adult Is this a current diagnosis for this admission?: Yes (5) Anticoagulated Is this a current diagnosis for this admission?: Yes (6) Diabetes mellitus type 2 in obese Is this a current diagnosis for this admission?: Yes (7) HTN (hypertension) Is this a current diagnosis for this admission?: Yes (8) Morbid obesity with BMI of 50.0-59.9, adult Is this a current diagnosis for this admission?: Yes (9) Paroxysmal atrial fibrillation Is this a current diagnosis for this admission?: Yes - Assessment Summary: Per Previous Physician: "Wound cultures currently growing gram-positive clusters as well as gram- negative rods. Patient is currently on Unasyn. Add doxycycline for empiric possible MRSA coverage pending results. Wound culture is currently yielding gram-positive cocci in clusters, gram- negative rods as well as gram-positive cocci in chains. Patient is on date 3 of ampicillin sulbactam as well as day 2 of doxycycline to cover potential MRSA she otherwise remains hemodynamically stable 12/10. Wound culture currently yielding staph aureus, Proteus as well as Enterococcus faecalis. There is good sensitivity to penicillin. Patient is currently on ampicillin sulbactam and I will continue with this through the weekend however this can be changed to a penicillin derivative discharge. I will discontinue the doxycycline that she had received for possible MRSA since she has MSSA" 12/12/2019 Patient states her cellulitis is gradually improving in her right leg. I believe she has significant fungal infection of her skin folds as well. I have started her on nystatin cream although she may need a course of oral fluconazole as she likely has whole body skin fold fungal infection due to severe morbid obesity with a BMI of 61.8. She is continued on Unasyn for now but according to sensitivity results she can be discharged on Augmentin p.o. He will certainly need home health when she is discharged as I doubt she can care for her own wounds at home given her severely limited mobility due to her body habitus. Cleared for discharge on Augmentin to complete course. Needs wound care at rehab facility as well as physical therapy. Recommend vegan diet and gradually increased exercise intensity regimen. (1) Cellulitis of right legresolving Per Previous Physician: "Will be started on Unasyn. I doubt that she has any active infection at this time however been on oral antibiotics at home. Wound cultures will be obtained. She will be placed on empiric antibiotics and wound care consult will be obtained Continue local wound care 12/10 MSSA, Proteus as well as Enterococcus on wound cultures currently on ampicillin sulbactam" discharged on oral Augmentin to complete 7-day total course Appears to also have permanent superficial fungal infection on her skin, added nystatin cream; may benefit from oral fluconazole course if this does not clear up with topical alone; the patient has drug interactions with her anticoagulant, she can be switched to an alternative such as Lovenox or Coumadin and complete a 14-day course of oral fluconazole (2) Atrial fibrillation Qualifiers: Atrial fibrillation type: permanent Qualified Code(s): I48.21 - Permanent atrial fibrillation Controlled (3) Lymphedema of both lower extremities Chronic, continue with local care. Appreciate wound consult (4) Morbid obesity with BMI of 60.0-69.9, adult Is this a current diagnosis for this admission?: Yes Plan: Weight loss strongly suggested, recommend vegan diet (5) Atrial fibrillation with controlled ventricular rate Is this a current diagnosis for this admission?: Yes Plan: Continue Xarelto sotalol and diltiazem Rate controlled on home medications - Additional Information Resuscitation Status: Full Code Discharge Diet: As Tolerated, Other (Comments) - Vegetarian/vegan Discharge Activity: Activity As Tolerated, Balance Activity w/Rest Referrals: OLIVERIO CALIX, [Primary Care Provider] - Follow up as needed Prescriptions: Amoxicillin/Potassium Clav [Augmentin 875-125 Tablet] 1 tab PO Q12 2 Days #4 tablet Oxycodone HCl/Acetaminophen [Percocet 5-325 mg Tablet] 1 tab PO Q6HP PRN #8 tablet PRN Reason: Home Medications: Diltiazem HCl [Diltiazem 24Hr ER (Cd)] 180 mg PO Q12 07/25/16 Folic Acid 1 mg PO DAILY 07/25/16 Furosemide 40 mg PO BID 07/25/16 Magnesium Oxide 400 mg PO QPM 07/25/16 Metformin HCl 500 mg PO BIDBS 07/25/16 Rivaroxaban [Xarelto] 20 mg PO QPM 07/25/16 Sotalol HCl [Sotalol] 160 mg PO BID 07/25/16 Gabapentin [Neurontin 300 mg Capsule] 600 mg PO Q12 08/04/19 Multivitamin [Chewable-Tamiko] 1 each PO DAILY 12/08/19 Amoxicillin/Potassium Clav [Augmentin 875-125 Tablet] 1 tab PO Q12 2 Days #4 tablet 12/13/19 Docusate Sodium [Colace 100 mg Capsule] 100 mg PO DAILY capsule 12/13/19 Ipratropium/Albuterol Sulfate [Duoneb 3 ml Ampul] 3 ml NEB RTQ6HP PRN vial.neb 12/13/19 Nystatin [Mycostatin Cream 15 gm] 1 applic TP BID tube 12/13/19 Ondansetron [Zofran Odt 4 mg Tablet] 4 mg PO Q4HP PRN tab.rapdis 12/13/19 Oxycodone HCl/Acetaminophen [Percocet 5-325 mg Tablet] 1 tab PO Q6HP PRN #8 tablet 12/13/19 History of Present Illiness History of Present Illness: Per Previous Physician: "ANNMARIE ATKINS is a 69 year old female Patient presented to the emergency room with complaints of weakness. She was also found to have multiple sores in lower extremities as well as buttocks. Patient has a history of right lower extremity cellulitis with chronic lymphedema, venous insufficiency and decreased mobility. She does have home health come out to see her a couple of times a week. She states she was last in the hospital in July with the same issue. At the time her cultures yielded multiple organisms including group D Enterococcus. Patient had lab work done today which shows no evidence of leukocytosis and she is clinically stable with no evidence of sepsis or infection." Physical Exam Vital Signs: Temp Pulse Resp BP Pulse Ox 98.9 F 96 20 129/57 H 95 12/13/19 10:48 12/13/19 10:48 12/13/19 10:48 12/13/19 10:48 12/13/19 10:48 Intake & Output 12/12/19 12/13/19 12/14/19 06:59 06:59 06:59 Intake Total 842 Output Total 2550 Balance -1708 Weight 162.2 kg Exam: General appearance: PRESENT: no acute distress, well-developed, well-nourished, morbidly obese with a BMI of 61.8, states she feels well would like to be discharged Head exam: PRESENT: atraumatic, normocephalic Eye exam: PRESENT: conjunctiva pink. ABSENT: scleral icterus Mouth exam: PRESENT: moist Respiratory exam: PRESENT: clear to auscultation sandee. ABSENT: rales, rhonchi, wheezes Cardiovascular exam: PRESENT: RRR. ABSENT: diastolic murmur, rubs, systolic murmur GI/Abdominal exam: PRESENT: normal bowel sounds, soft. ABSENT: distended, guarding, mass, organolmegaly, rebound, tenderness Neurological exam: PRESENT: alert, awake, oriented to person, oriented to place, oriented to time, oriented to situation Psychiatric exam: PRESENT: appropriate affect, normal mood Skin exam: PRESENT: dry, intact, warm; right posterior knee skin folds with erythema and dry scaly/flaky rash consistent with fungal infection Results Laboratory Results: WBC 5.9 10^3/uL (4.0-10.5) 12/12/19 06:05 RBC 3.43 10^6/uL (3.72-5.28) L 12/12/19 06:05 Hgb 10.7 g/dL (12.0-15.5) L 12/12/19 06:05 Hct 31.9 % (36.0-47.0) L 12/12/19 06:05 MCV 93 fl (80-97) 12/12/19 06:05 MCH 31.1 pg (27.0-33.4) 12/12/19 06:05 MCHC 33.4 g/dL (32.0-36.0) 12/12/19 06:05 RDW 16.7 % (11.5-14.0) H 12/12/19 06:05 Plt Count 287 10^3/uL (150-450) 12/12/19 06:05 Lymph % (Auto) 22.5 % (13-45) 12/12/19 06:05 Saunders % (Auto) 13.5 % (3-13) H 12/12/19 06:05 Eos % (Auto) 4.3 % (0-6) 12/12/19 06:05 Baso % (Auto) 0.3 % (0-2) 12/12/19 06:05 Absolute Neuts (auto) 3.5 10^3/uL (1.7-8.2) 12/12/19 06:05 Absolute Lymphs (auto) 1.3 10^3/uL (0.5-4.7) 12/12/19 06:05 Absolute Monos (auto) 0.8 10^3/uL (0.1-1.4) 12/12/19 06:05 Absolute Eos (auto) 0.3 10^3/uL (0.0-0.6) 12/12/19 06:05 Absolute Basos (auto) 0.0 10^3/uL (0.0-0.2) 12/12/19 06:05 Seg Neutrophils % 59.4 % (42-78) 12/12/19 06:05 PT 28.0 SEC (11.4-15.4) H 12/08/19 07:09 INR 2.63 12/08/19 07:09 Sodium 132.1 mmol/L (137-145) L 12/12/19 06:05 Potassium 3.4 mmol/L (3.6-5.0) L 12/12/19 06:05 Chloride 92 mmol/L (98-107) L 12/12/19 06:05 Carbon Dioxide 32 mmol/L (22-30) H 12/12/19 06:05 Anion Gap 8 (5-19) 12/12/19 06:05 BUN 8 mg/dL (7-20) 12/12/19 06:05 Creatinine 0.69 mg/dL (0.52-1.25) 12/12/19 06:05 Est GFR ( Amer) > 60 (>60) 12/12/19 06:05 Est GFR (Non-Af Amer) Cancelled 12/08/19 06:13 Est GFR (MDRD) Non-Af > 60 (>60) 12/12/19 06:05 Glucose 159 mg/dL (75-110) H 12/12/19 06:05 POC Glucose 122 mg/dL (70-110) H 12/08/19 07:03 Lactic Acid 1.3 mmol/L (0.7-2.1) 12/08/19 12:10 Calcium 7.9 mg/dL (8.4-10.2) L 12/12/19 06:05 Total Bilirubin 0.6 mg/dL (0.2-1.3) 12/08/19 09:05 Direct Bilirubin 0.1 mg/dL (0.0-0.4) 12/08/19 09:05 Neonat Total Bilirubin Not Reportable 12/08/19 09:05 Neonat Direct Bilirubin Not Reportable 12/08/19 09:05 Neonat Indirect Bili Not Reportable 12/08/19 09:05 AST 26 U/L (14-36) 12/08/19 09:05 ALT 16 U/L (<35) 12/08/19 09:05 Alkaline Phosphatase 66 U/L (38-126) 12/08/19 09:05 Troponin I < 0.012 ng/mL 12/08/19 09:05 NT-Pro-B Natriuret Pep 923 pg/mL (<125) H 12/08/19 09:05 Total Protein 5.8 g/dL (6.3-8.2) L 12/08/19 09:05 Albumin 3.1 g/dL (3.5-5.0) L 12/08/19 09:05 EGFR Cancelled 12/08/19 06:13 12/08/19 12/08/19 06:13 09:05 Troponin I Cancelled < 0.012 NT-Pro-B Natriuret Pep Cancelled 923 H Impressions: Chest X-Ray 12/08/19 00:00 IMPRESSION: Mild cardiac enlargement. No overt failure. Plan Plan of Treatment: Follow-up with PCP Complete antibiotic course Vegan diet Time Spent: Greater than 30 Minutes Stroke Is this a Stroke Patient?: No Acute Heart Failure Is this a Heart Failure Patient?: No
[2019-12-13 15:13] VITALS: BP 98/40
== END 2019-12-13 15:50 | DRG 603 ==
LOC: ER 05:05 → EH 13:05 → 4N 20:52
PROVIDERS: ADMIT Internal Medicine; ATTEND Internal Medicine
DX: L03.115 Cellulitis of right lower limb (principal); I48.21 Permanent atrial fibrillation; Z68.44 Body mass index [BMI] 60.0-69.9, adult; E66.01 Morbid (severe) obesity due to excess calories; E11.9 Type 2 diabetes mellitus without complications; I89.0 Lymphedema, not elsewhere classified; I87.2 Venous insufficiency (chronic) (peripheral); B95.61 Methicillin susceptible Staphylococcus aureus infection as the cause of diseases classified elsewhere; B96.4 Proteus (mirabilis) (morganii) as the cause of diseases classified elsewhere; B95.2 Enterococcus as the cause of diseases classified elsewhere; I10 Essential (primary) hypertension; E03.9 Hypothyroidism, unspecified; M10.9 Gout, unspecified; M19.90 Unspecified osteoarthritis, unspecified site; B36.9 Superficial mycosis, unspecified; Z79.52 Long term (current) use of systemic steroids; Z88.1 Allergy status to other antibiotic agents; Z88.8 Allergy status to other drugs, medicaments and biological substances; Z79.84 Long term (current) use of oral hypoglycemic drugs; Z79.01 Long term (current) use of anticoagulants
CPT/HCPCS: 36415; 71045; 80048; 80053; 82962; 83605; 83880; 84484; 85025; 85610; 87040; 87070; 87077; 87186; 87205; 93005; 93010; 96365; 96366; 99285; J0295; J3370; J3490; J7050; S0119

== ENCOUNTER 2019-12-27 13:26 | Inpatient (IN) | payer OTHER, MEDICARE ==
[2019-12-27] MEDS ORDERED: DIPHENHYDRAMINE HCL 50 MG/ML VIAL IV ONE (14:35)
--- NOTE | 2019-12-27 14:35 | ER Document Report ---
ED General - General Stated Complaint: SLURRED SPEECH Time Seen by Provider: 12/27/19 14:15 Primary Care Provider: RODNEY MCKNIGHT MD [NO LOCAL MD] - Follow up as needed Notes: 69-year-old female was sent from the skilled nursing for altered mental status and cough. She was tested for Covid on Friday and was tested again today the result for Friday is negative. Patient's developed a cough today. She was noted to be more confused than usual. Patient answers all orientation questions correctly. She denies any extremity numbness tingling or weakness. Complains of redness on her legs and skin folds. Also states she is been very itchy and that began since she got to the skilled nursing. She does not know if she is reacting to something. Increased rash around her trunk and extremities. Neck she denies any problems swallowing or breathing. TRAVEL OUTSIDE OF THE [place] IN LAST 30 DAYS: No - Related Data Allergies/Adverse Reactions: clindamycin Allergy (Verified 09/08/19 10:22) digoxin Allergy (Verified 08/04/19 13:30) spironolactone Allergy (Verified 08/04/19 13:30) povidone-iodine [From Betadine] Adverse Reaction (Verified 07/24/16 13:33) soap [From Betadine] Adverse Reaction (Verified 07/24/16 13:33) Past Medical History - Social History Smoking Status: Unknown if Ever Smoked Family History: Reviewed & Not Pertinent - Past Medical History Cardiac Medical History: Reports: Hx Atrial Fibrillation, Hx Hypertension Denies: Hx Congestive Heart Failure, Hx Coronary Artery Disease, Hx DVT, Hx Heart Attack, Hx Hypercholesterolemia, Hx Pulmonary Embolism Pulmonary Medical History: Denies: Hx Asthma, Hx COPD, Hx Sleep Apnea Neurological Medical History: Denies: Hx Seizures Endocrine Medical History: Reports: Hx Diabetes Mellitus Type 2. 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 denies: Short of breath Genitourinary: denies: Burning, Flank pain Skin: Rash, Other - Skin changes also some mild reactionary rash to the trunk and upper extremities Neurological/Psychological: Confusion. denies: Headaches -: Yes All other systems reviewed and negative Physical Exam - Vital signs Vitals: Resp Pulse Ox 16 98 12/27/19 14:39 12/27/19 14:39 - Notes Notes: GENERAL_APPEARANCE: well_nourished, morbidly obese, alert, cooperative, no_acute_distress, no_obvious_discomfort. VITALS: reviewed, see vital signs table. HEAD: no_swelling\tenderness on the head. EYES: PERRL, EOMI, conjunctiva_clear. NOSE: no_nasal_discharge. MOUTH: (-)decreased moisture. THROAT: no_tonsilar_inflammation, no_airway_obstruction. no_lymphadenopathy NECK: supple, no_neck_tenderness, (-)thyromegaly. BACK: no_back_tenderness. CHEST_WALL: no_chest_tenderness. LUNGS: no_wheezing, no_rales, no_rhonchi, (-)accessory muscle use, good air exchange bilateral. HEART: normal_rate, normal_rhythm, normal_S1, normal_S2, (-)S3, (-)S4, no_murmur, no_rub. ABDOMEN: soft, no_abd_tenderness, (-)guarding, (-)rebound, no_organomegaly, no_abd_masses. EXTREMITIES: good pulses in all_extremities, no_swelling\tenderness in the extremities, 3+_edema. SKIN: warm, dry, good_color, is chronic skin changes of the lower extremities there could be chronic venous stasis changes in the lower extremities possibly early cellulitis around skin folds that have denuded. Is also a little urticaria around the neck and chest. Wounds are noted to the lower extremities MENTAL_STATUS: speech_clear, oriented_X_3, normal_affect, responds_appropriately to questions. NEURO: Neg Motor or Sensory Deficits on exam, CN 2-12 intact, DTR 2+ symmetric x 4, No cerbellar signs Course - Re-evaluation Re-evalutation: 12/27/19 14:34 69-year-old female morbidly obese was sent for questionable stroke or altered mental status. It was noted the patient was slurring her speech and was confused this is not the case for EMS and evaluation here. EMS did not recognize this nor do we. Patient has been fully alert and oriented for is here. No unilateral numbness tingling or weakness. Patient has incidental rash on her chest. Very itchy. I know she is having a drug reaction to something. Also she has chronic lower extremity edema and redness she has area of skin breakdown along skin folds due to her morbid obesity. Will check some blood work here. I am not sure what is chronic and what is new. We will give her a little Benadryl for the itching 12/27/19 17:30 CT the brain was normal. Again with this questionable stroke or altered mental status that was reported by the skilled nursing the patient likely should be observed. I spoke with the hospitalist service who recommends ordering an MRI and I will see the patient for likely observation overnight. Patient also has a mild urinary tract infection and then chronic skin breakdown which may have some mild cellulitis. I gave the patient some IV antibiotics for that. - Vital Signs Vital signs: Temp Pulse Resp BP Pulse Ox 98.2 F 57 L 18 110/69 100 12/27/19 15:22 12/27/19 15:30 12/27/19 15:30 12/27/19 15:30 12/27/19 15:30 - Laboratory Result Diagrams: 12/27/19 15:24 12/27/19 15:24 Laboratory results interpreted by me: 12/27/19 12/27/19 12/27/19 14:35 15:24 15:24 RDW 17.2 H Plt Count 459 H Sodium 134.8 L Chloride 93 L Carbon Dioxide 36 H Est GFR (MDRD) Non-Af 55 L Glucose 126 H Total Protein 6.0 L Albumin 2.8 L Urine Protein 30 H Ur Leukocyte Esterase MODERATE H Urine Ascorbic Acid 40 H - Diagnostic Test Radiology reviewed: Reports reviewed Radiology results interpreted by me: 12/27/19 17:30 Chest X-Ray 12/27/19 14:28 IMPRESSION: Cardiomegaly, low inspiratory lung volumes and hazy bilateral basilar predominant opacities. Clinical correlation for signs and symptoms of volume overload/CHF is recommended. Head CT 12/27/19 14:28 IMPRESSION: 1. No acute intracranial abnormality. 2. Slight to mild incomplete opacification of the mastoid air cells may represent small bilateral mastoid effusions. EVIDENCE OF ACUTE STROKE: NO - EKG Interpretation by Me EKG shows normal: Sinus rhythm Rate: Normal Rhythm: NSR When compared to previous EKG there are: Changes noted Additional EKG results interpreted by me: 12/27/19 17:32 Anterior T wave inversion Discharge - Discharge Clinical Impression: Slurred speech, UTI (urinary tract infection) Altered mental status Qualifiers: Altered mental status type: unspecified Qualified Code(s): R41.82 - Altered mental status, unspecified Cellulitis Qualifiers: Site of cellulitis: extremity Condition: Good Disposition: ADMITTED OBSERVATION Admitting Provider: Nura (Hospitalist) Unit Admitted: Telemetry Referrals: RODNEY MCKNIGHT MD [NO LOCAL MD] - Follow up as needed
[2019-12-27 14:59] LABS: APPEARANCE,URINE CLOUDY; BILIRUBIN,URINE NEGATIVE (NEGATIVE); COLOR,URINE AMBER; GLUCOSE, URINE NEGATIVE (NEGATIVE); KETONES,URINE NEGATIVE (NEGATIVE); LEUKOCYTE ESTERASE,URINE MODERATE (NEGATIVE); NITRITE,URINE NEGATIVE (NEGATIVE); PROTEIN,URINE 30 mg/dL (NEGATIVE); URINE SPECIFIC GRAVITY 1.018; UROBILINOGEN,URINE NEGATIVE mg/dL (<2.0)
[2019-12-27 15:44] LABS: ABSOLUTE BASOPHILS # (AUTO) 0.1 10^3/uL (0.0-0.2); ABSOLUTE EOSINOPHILS # (AUTO) 0.1 10^3/uL (0.0-0.6); ABSOLUTE LYMPHOCYTES (AUTO) 1.7 10^3/uL (0.5-4.7); ABSOLUTE NEUT (AUTO) 5.2 10^3/uL (1.7-8.2); BASOPHILS % (AUTO) 0.7 % (0-2); EOSINOPHILS % (AUTO) 1.5 % (0-6); HEMATOCRIT 38.4 % (36.0-47.0); HEMOGLOBIN 12.5 g/dL (12.0-15.5); LYMPHOCYTES % (AUTO) 21.3 % (13-45); MEAN CORPUSCULAR HEMOGLOBIN 30.1 pg (27.0-33.4); MEAN CORPUSCULAR HGB CONC 32.5 g/dL (32.0-36.0); MEAN CORPUSCULAR VOLUME 93 fl (80-97); MONOCYTES % (AUTO) 12.9 % (3-13); PLATELET COUNT 459 10^3/uL (150-450); RED BLOOD COUNT 4.14 10^6/uL (3.72-5.28); RED CELL DISTRIBUTION WIDTH 17.2 % (11.5-14.0); SEGMENTED NEUTROPHILS % (AUTO) 63.6 % (42-78); TOTAL CELLS COUNTED % (AUTO) 100 %; WHITE BLOOD COUNT 8.1 10^3/uL (4.0-10.5)
--- NOTE | 2019-12-27 15:48 | EKG REPORT ---
SEVERITY:- ABNORMAL ECG - SINUS RHYTHM ABNRM R PROG, CONSIDER ASMI OR LEAD PLACEMENT NONSPECIFIC T ABNORMALITIES, ANT-LAT LEADS BORDERLINE PROLONGED QT INTERVAL : Confirmed by: Carmella Julio MD 27-Dec-2019 15:47:12
--- NOTE | 2019-12-27 15:53 | RADIOLOGY REPORT (SQ) ---
EXAM DESCRIPTION: CT HEAD WITHOUT IMAGES COMPLETED DATE/TIME: 12/27/2019 3:41 pm REASON FOR STUDY: Altered Mental Status COMPARISON: None. TECHNIQUE: Axial images acquired through the brain without intravenous contrast. Images reviewed wi th bone, brain and subdural windows. Additional sagittal and coronal reconstructions were generated. Images stored on PACS. All CT scanners at this facility use dose modulation, iterative reconstruction, and/or weight based d osing when appropriate to reduce radiation dose to as low as reasonably achievable (ALARA). [facility]: Dose Right [facility]: CareDose [facility]: Dose Right [facility]: Teradose 4D [facility]: Smart Vo[place] RADIATION DOSE: CT Rad equipment meets quality standard of care and radiation dose reduction techniq ues were employed. CTDIvol: 53.2 mGy. DLP: 1070 mGy-cm. LIMITATIONS: None. FINDINGS: VENTRICLES: Normal size and contour. The cisterns are patent. CEREBRUM: No masses. No hemorrhage. No midline shift. No evidence for acute infarction. Normal gra y/white matter differentiation. No areas of low density in the white matter. CEREBELLUM: No masses. No hemorrhage. No alteration of density. No evidence for acute infarction. EXTRAAXIAL SPACES: No fluid collections. No masses. ORBITS AND GLOBE: No intra- or extraconal masses. Normal contour of globe without masses. CALVARIUM: Hyperostosis frontalis interna, normal anatomic variant. No fracture. PARANASAL SINUSES: No fluid or mucosal thickening. SOFT TISSUES: No mass or hematoma. OTHER: Slight to mild incomplete opacification of the mastoid air cells may represent small bilatera l mastoid effusions. Small calcification in the region of the right tentorium maybe related to prior remote inflammatory changes. IMPRESSION: 1. No acute intracranial abnormality. 2. Slight to mild incomplete opacification of the mastoid air cells may represent small bilateral ma stoid effusions. EVIDENCE OF ACUTE STROKE: NO COMMENT: Quality ID # [id number]: Final reports with documentation of one or more dose reduction techniques (e.g., Automated exposure control, adjustment of the mA and/or kV according to patient size, use of iterative reconstruction technique) TECHNICAL DOCUMENTATION: JOB ID: [id number] 2010 [employer]- All Rights Reserved Reading location - IP/workstation name: [email or web address]
--- NOTE | 2019-12-27 15:58 | RADIOLOGY REPORT (SQ) ---
EXAM DESCRIPTION: CHEST SINGLE VIEW IMAGES COMPLETED DATE/TIME: 12/27/2019 3:46 pm REASON FOR STUDY: Altered Mental Status COMPARISON: AP view of the chest from 12/08/2019. EXAM PARAMETERS: NUMBER OF VIEWS: One view. TECHNIQUE: An AP view of the chest was obtained. RADIATION DOSE: NA LIMITATIONS: None. FINDINGS: LUNGS AND PLEURA: Low inspiratory lung volumes and hazy bilateral basilar predominant opac ities. The horizontal fissure is thickened. There is no pneumothorax. MEDIASTINUM AND HILAR STRUCTURES: No mediastinal or hilar contour abnormality. HEART AND VASCULAR STRUCTURES: The cardiac silhouette is enlarged. BONES: No acute findings. HARDWARE: None in the chest. OTHER: No other finding. IMPRESSION: Cardiomegaly, low inspiratory lung volumes and hazy bilateral basilar predominant opacit ies. Clinical correlation for signs and symptoms of volume overload/CHF is recommended. TECHNICAL DOCUMENTATION: JOB ID: [id number] 2010 [employer]- All Rights Reserved Reading location - IP/workstation name: [email or web address]
[2019-12-27 16:04] LABS: ALBUMIN 2.8 g/dL (3.5-5.0); ALKALINE PHOSPHATASE 97 U/L (38-126); ANION GAP 6 (5-19); ASPARTATE AMINO TRANSFERASE 23 U/L (14-36); BILIRUBIN,DIRECT 0.1 mg/dL (0.0-0.4); BILIRUBIN,TOTAL 0.6 mg/dL (0.2-1.3); BLOOD UREA NITROGEN 16 mg/dL (7-20); CALCIUM 8.5 mg/dL (8.4-10.2); CARBON DIOXIDE 36 mmol/L (22-30); CHLORIDE 93 mmol/L (98-107); CREATINE KINASE 40 U/L (30-135); GLUCOSE 126 mg/dL (75-110); POTASSIUM 4.4 mmol/L (3.6-5.0)
[2019-12-27] MEDS ORDERED: PIPERACILLIN/TAZOBACTAM 3.375 GM VIAL IV ONE (17:18)
[2019-12-27] MEDS ORDERED: IPRATROPIUM/ALBUTEROL 0.5-2.5 MG/3 ML AMPUL NEB PRN (18:31)
[2019-12-27] MEDS ORDERED: ONDANSETRON 4 MG TAB.RAPDIS PO PRN (18:31)
[2019-12-27 19:37] LABS: URINE AMPHETAMINES SCREEN NEGATIVE; URINE BARBITURATES SCREEN NEGATIVE; URINE BENZODIAZEPINES SCREEN NEGATIVE; URINE COCAINE SCREEN NEGATIVE; URINE MARIJUANA (THC) SCREEN NEGATIVE; URINE METHADONE SCREEN NEGATIVE; URINE PHENCYCLIDINE SCREEN NEGATIVE
--- NOTE | 2019-12-27 20:19 | RADIOLOGY REPORT (SQ) ---
EXAM DESCRIPTION: MR BRAIN WITHOUT IV CONTRAST COMPLETED DATE/TME: 12/27/2019 19:56 CLINICAL INDICATION: 69-year-old female with altered mental status. Technologist note: Symptoms of altered mental status, and slurred speech onset Friday afternoon. COMPARISON: Noncontrast CT brain 12/27/2019. TECHNIQUE: Multiplanar, multi-sequence MR imaging of the brain without intravenous administration of contrast. FINDINGS: No abnormal increased signal intensity is present on diffusion-weighted imaging to suggest restricted diffusion/acute infarction. T2/flair weighted imaging reveals multifocal areas of patchy increased signal intensity present in a subcortical and periventricular deep white matter distribution, a nonspecific finding however may be seen with small vessel ischemic change. There is no evidence of intracranial hemorrhage, mass or edema. Midline structures are within normal limits. The ventricles and basal cisterns are normal in size and configuration. Major intracranial flow voids are identified. The paranasal sinuses are patent. Patchy opacification of the bilateral mastoid air cells, of indeterminate age, finding which can be seen with sequela of infectious or inflammatory process. IMPRESSION: 1. No abnormal increased signal intensity is present on diffusion-weighted imaging to suggest restricted diffusion/acute infarction. 2. T2/flair weighted imaging reveals multifocal areas of patchy increased signal intensity present in a subcortical and periventricular deep white matter distribution, a nonspecific finding however may be seen with small vessel ischemic change.
--- NOTE | 2019-12-27 21:26 | PDOC H&P ---
History of Present Illness Admission Date/PCP: 12/27/19 18:31 OLIVERIO Tyrone CALIX DO Patient complains of: altered mental status History of Present Illness: ANNMARIE ATKINS is a 69 year old female, morbid obesity, diabetes, neuropathy, who was sent by [facility] due to altered mental status. Patient was alert awake and talking and was able to provide most of the history. According to the patient she hit her head while the staff were trying to clean her up. She was given an unknown pain medication which she thinks may be Percocet. She felt groggy and fell asleep and was apparently woken up at around 4 AM by a staff and was asked questions which she was unable to answer because she was so sleepy. All throughout the day yesterday she continued to be groggy and unable to answer much of the steps questions and at one point she reported having hallucinations. She denied any focal weakness, no blurring of vision. In the ED, blood pressure 110/69, heart rate of 60, respiratory rate 18, O2 sat 96%. Neuro exam was nonfocal. CT head was negative. CBC and CMP unremarkable. UA was done which showed positive leukocyte esterase and elevated WBC count. MRI was negative for acute stroke. She was complaining of itchiness head CT she was given Benadryl by the ED. And she has generalized dry skin Hospitalist was was called to admit her for further evaluation and management. She was tested for Covid on Friday as part of [place] protocol as the residents need to be tested as if ever someone from the rehab becomes positive. She was retested a few ho urs prior to being sent to the ED. Results are pending. Past Medical History Cardiac Medical History: Reports: Atrial Fibrillation, Hypertension Denies: Congestive Heart Failure, Coronary Artery Disease, DVT, Myocardial Infarction, Hyperlipidema, Pulmonary Embolism Pulmonary Medical History: Denies: Asthma, Chronic Obstructive Pulmonary Disease (COPD), Sleep Apnea Neurological Medical History: Denies: Seizures Endocrine Medical History: Reports: Diabetes Mellitus Type 2 Denies: Hyperthyroidism, Hypothyroidism GI Medical History: Denies: Cirrhosis, Gastroesophageal Reflux Disease, Hepatitis Musculoskeltal Medical History: Reports: Arthritis - Steroid-dependent, Gout Psychiatric Medical History: Denies: Depression Infectious Medical History: Denies: Clostridium Difficile, Methicillin-Resistant Staph Aureus Past Surgical History Past Surgical History: Reports: Cholecystectomy Social History Information Source: Patient Lives with: Care Home Smoking Status: Unknown if Ever Smoked Electronic Cigarette use?: No Frequency of Alcohol Use: None Hx Recreational Drug Use: No Drugs: None Hx Prescription Drug Abuse: No Family History Family History: Reviewed & Not Pertinent Parental Family History Reviewed: Yes Children Family History Reviewed: Yes Sibling(s) Family History Reviewed.: Yes Medication/Allergy Home Medications: Diltiazem HCl [Diltiazem 24Hr ER (Cd)] 180 mg PO Q12 07/25/16 Folic Acid 1 mg PO DAILY 07/25/16 Furosemide 40 mg PO BID 07/25/16 Magnesium Oxide 400 mg PO QPM 07/25/16 Metformin HCl 500 mg PO BIDBS 07/25/16 Rivaroxaban [Xarelto] 20 mg PO QPM 07/25/16 Sotalol HCl [Sotalol] 160 mg PO BID 07/25/16 Gabapentin [Neurontin 300 mg Capsule] 600 mg PO Q12 08/04/19 Multivitamin [Chewable-Tamiko] 1 each PO DAILY 12/08/19 Potassium Chloride [Klor-Con M20] 20 meq PO BID 12/27/19 Tramadol HCl [Ultram] 100 mg PO TID 12/27/19 Allergies/Adverse Reactions: clindamycin Allergy (Verified 09/08/19 10:22) digoxin Allergy (Verified 08/04/19 13:30) spironolactone Allergy (Verified 08/04/19 13:30) povidone-iodine [From Betadine] Adverse Reaction (Verified 07/24/16 13:33) soap [From Betadine] Adverse Reaction (Verified 07/24/16 13:33) Review of Systems Constitutional: PRESENT: weakness Ears: ABSENT: hearing changes Nose, Mouth, and Throat: ABSENT: mouth pain, sore throat Cardiovascular: ABSENT: chest pain, edema, orthropnea, palpitations Gastrointestinal: ABSENT: coffee ground emesis, hematemesis Genitourinary: ABSENT: difficulty urinating, dysuria, hematuria Integumentary: PRESENT: erythema, pruritus Neurological: PRESENT: paresthesias Psychiatric: PRESENT: hallucinations. ABSENT: suicidal ideation Physical Exam Vital Signs: Temp Pulse Resp BP Pulse Ox 98.2 F 58 L 23 H 124/101 H 96 12/27/19 15:22 12/27/19 18:40 12/27/19 20:01 12/27/19 20:01 12/27/19 20:01 Intake & Output 12/26/19 12/27/19 12/28/19 06:59 06:59 06:59 Weight 153 kg General appearance: PRESENT: cooperative, mild distress, morbidly obese Head exam: PRESENT: atraumatic, normocephalic Eye exam: PRESENT: EOMI, PERRLA Mouth exam: PRESENT: moist Respiratory exam: PRESENT: clear to auscultation sandee, symmetrical, unlabored Cardiovascular exam: PRESENT: RRR, +S1, +S2 Pulses: PRESENT: +2 pedal pulses bilateral GI/Abdominal exam: PRESENT: normal bowel sounds, soft. ABSENT: rebound, tenderness Extremities exam: PRESENT: other - Patient has xerostomia and chronic venous stasis dermatitis with note of erythema in between her extensive pannus. No clear sign of cellulitis. Neurological exam: PRESENT: alert, awake, oriented to person, oriented to place, oriented to time, oriented to situation, CN II-XII grossly intact. ABSENT: motor sensory deficit, aphasic Psychiatric exam: PRESENT: normal mood Skin exam: PRESENT: normal color Results Laboratory Results: 12/27/19 15:24 12/27/19 15:24 12/27/19 12/27/19 12/27/19 14:35 15:24 15:24 WBC 8.1 RBC 4.14 Hgb 12.5 Hct 38.4 MCV 93 MCH 30.1 MCHC 32.5 RDW 17.2 H Plt Count 459 H Seg Neutrophils % 63.6 Sodium 134.8 L Potassium 4.4 Chloride 93 L Carbon Dioxide 36 H Anion Gap 6 BUN 16 Creatinine 1.00 Est GFR ( Amer) > 60 Glucose 126 H Calcium 8.5 Total Bilirubin 0.6 AST 23 Alkaline Phosphatase 97 Total Protein 6.0 L Albumin 2.8 L Urine Color MARIO Urine Appearance CLOUDY Urine pH 5.0 Ur Specific [place] 1.018 Urine Protein 30 H Urine Glucose (UA) NEGATIVE Urine Ketones NEGATIVE Urine Blood NEGATIVE Urine Nitrite NEGATIVE Ur Leukocyte Esterase MODERATE H Urine WBC (Auto) 74 Urine RBC (Auto) 4 12/27/19 12/27/19 15:24 15:24 Creatine Kinase 40 Troponin I 0.072 Impressions: Chest X-Ray 12/27/19 14:28 IMPRESSION: Cardiomegaly, low inspiratory lung volumes and hazy bilateral basilar predominant opacities. Clinical correlation for signs and symptoms of volume overload/CHF is recommended. Head CT 12/27/19 14:28 IMPRESSION: 1. No acute intracranial abnormality. 2. Slight to mild incomplete opacification of the mastoid air cells may represent small bilateral mastoid effusions. EVIDENCE OF ACUTE STROKE: NO Head MRI 12/27/19 17:30 IMPRESSION: 1. No abnormal increased signal intensity is present on diffusion-weighted imaging to suggest restricted diffusion/acute infarction. 2. T2/flair weighted imaging reveals multifocal areas of patchy increased signal intensity present in a subcortical and periventricular deep white matter distribution, a nonspecific finding however may be seen with small vessel ischemic change. Assessment and Plan - Diagnosis (1) Acute metabolic encephalopathy Is this a current diagnosis for this admission?: Yes Plan: -Sent from [facility] due to altered mental status after receiving an unknown pain medication. -Is alert awake no focal deficits when I examined her in the ED. -Nonfocal neurologic exam -CT head negative -MRI normal -We will observe her overnight (2) UTI (urinary tract infection) Qualifiers: Urinary tract infection type: site unspecified Hematuria presence: without hematuria Qualified Code(s): N39.0 - Urinary tract infection, site not specified Is this a current diagnosis for this admission?: Yes Plan: -She denies having any symptoms of urinary tract infection -UA showed positive leukocyte esterase and WBC count of 76 -Urine culture sent -Since she presented with altered mental status we will proceed to treat her with Rocephin which can be switched on oral antibiotics soon. (3) Lymphedema of both lower extremities Is this a current diagnosis for this admission?: Yes Plan: -This is a chronic problem since the patient is morbidly obese. -We will consult wound care (4) Diabetes mellitus type 2 in obese Is this a current diagnosis for this admission?: Yes Plan: -On Metformin 500 twice daily -We will switch him to sliding scale insulin -Accu-Cheks -Hypoglycemia protocol (5) HTN (hypertension) Qualifiers: Hypertension type: essential hypertension Qualified Code(s): I10 - Essential (primary) hypertension Is this a current diagnosis for this admission?: Yes Plan: -Home meds resumed (6) Morbid obesity with BMI of 50.0-59.9, adult Is this a current diagnosis for this admission?: Yes Plan: Patient is morbidly obese and has been advised multiple times for diet and weight loss. (7) Paroxysmal atrial fibrillation Is this a current diagnosis for this admission?: Yes Plan: On Xarelto -Resumed diltiazem and sotalol - Time Time Spent with patient: 30 min Time Spent with patient: 25-34 minutes Anticipated Discharge Disposition: Senior Care Facility Anticipated Discharge Timeframe: TBD
[2019-12-27] MEDS: GABAPENTIN 300 MG CAPSULE PO SCH (22:17)
[2019-12-27] MEDS: DILTIAZEM HCL 180 MG CAPSULE.CR PO SCH (22:17)
[2019-12-27] MEDS: RIVAROXABAN 10 MG TABLET PO SCH (22:17)
[2019-12-27] MEDS: FAMOTIDINE 20 MG TABLET PO SCH (22:23)
[2019-12-28] MEDS: RINGERS SOLUTION,LACTATED 1,000 ML IV PRN (00:39)
[2019-12-28] MEDS ORDERED: NORMAL SALINE 1000 ML 500 ML IV ONE ×2 (06:46→14:15)
[2019-12-28 07:45] LABS: ABSOLUTE BASOPHILS # (AUTO) 0.1 10^3/uL (0.0-0.2); ABSOLUTE EOSINOPHILS # (AUTO) 0.1 10^3/uL (0.0-0.6); ABSOLUTE LYMPHOCYTES (AUTO) 1.5 10^3/uL (0.5-4.7); ABSOLUTE MONOCYTES (AUTO) 1.2 10^3/uL (0.1-1.4); ABSOLUTE NEUT (AUTO) 5.1 10^3/uL (1.7-8.2); BASOPHILS % (AUTO) 0.8 % (0-2); EOSINOPHILS % (AUTO) 1.8 % (0-6); HEMATOCRIT 39.5 % (36.0-47.0); HEMOGLOBIN 12.8 g/dL (12.0-15.5); LYMPHOCYTES % (AUTO) 19.2 % (13-45); MEAN CORPUSCULAR HEMOGLOBIN 29.6 pg (27.0-33.4); MEAN CORPUSCULAR HGB CONC 32.3 g/dL (32.0-36.0); MEAN CORPUSCULAR VOLUME 92 fl (80-97); MONOCYTES % (AUTO) 14.6 % (3-13); PLATELET COUNT 424 10^3/uL (150-450); SEGMENTED NEUTROPHILS % (AUTO) 63.6 % (42-78); TOTAL CELLS COUNTED % (AUTO) 100 %
[2019-12-28] MEDS ORDERED: CEFTRIAXONE 2 GM/D5W RTU 2 GM/50 ML RTUPB IV SCH (10:00)
[2019-12-28] MEDS ORDERED: ENOXAPARIN SODIUM INJ 40 MG/0.4 ML DISP.SYRIN SUBCUT SCH (10:00)
[2019-12-28] MEDS: FUROSEMIDE 20 MG TABLET PO SCH ×2 (10:16→18:16)
[2019-12-28] MEDS: SOTALOL HCL 80 MG TABLET PO SCH ×2 (10:17→18:20)
[2019-12-28] MEDS: DILTIAZEM HCL 180 MG CAPSULE.CR PO SCH ×2 (10:18→22:26)
[2019-12-28] MEDS: FAMOTIDINE 20 MG TABLET PO SCH ×2 (10:18→22:26)
[2019-12-28] MEDS: GABAPENTIN 300 MG CAPSULE PO SCH ×2 (10:18→22:25)
[2019-12-28] MEDS: DOCUSATE SODIUM 100 MG/10 ML UDC PO SCH ×2 (10:19→18:17)
[2019-12-28] MEDS: NYSTATIN CREAM 15 GM TP SCH ×2 (10:19→18:17)
[2019-12-28] MEDS ORDERED: ONDANSETRON HCL INJ/PF 4 MG/2 ML SDV ONE (10:49)
[2019-12-28] MEDS ORDERED: ONDANSETRON HCL INJ/PF 4 MG/2 ML SDV IV ONE (10:51)
[2019-12-28 13:04] LABS: ALBUMIN 2.6 g/dL (3.5-5.0); ALKALINE PHOSPHATASE 92 U/L (38-126); ANION GAP 6 (5-19); ASPARTATE AMINO TRANSFERASE 22 U/L (14-36); BILIRUBIN,DIRECT 0.1 mg/dL (0.0-0.4); BILIRUBIN,TOTAL 0.6 mg/dL (0.2-1.3); BLOOD UREA NITROGEN 22 mg/dL (7-20); CALCIUM 8.5 mg/dL (8.4-10.2); CARBON DIOXIDE 34 mmol/L (22-30); CHLORIDE 93 mmol/L (98-107); GLUCOSE 123 mg/dL (75-110); POTASSIUM 4.3 mmol/L (3.6-5.0); TOTAL PROTEIN 5.7 g/dL (6.3-8.2)
--- NOTE | 2019-12-28 17:35 | RADIOLOGY REPORT (SQ) ---
EXAM DESCRIPTION: CHEST SINGLE VIEW IMAGES COMPLETED DATE/TIME: 12/28/2019 4:56 pm REASON FOR STUDY: SOB COMPARISON: 12/27/2019 EXAM PARAMETERS: NUMBER OF VIEWS: One view. TECHNIQUE: Single frontal radiographic view of the chest acquired. RADIATION DOSE: NA LIMITATIONS: Patient rotation FINDINGS: LUNGS AND PLEURA: Low lung volumes with resultant bronchovascular crowding. No focal cons olidation, pleural effusion, or pneumothorax demonstrated. MEDIASTINUM AND HILAR STRUCTURES: Grossly stable given slight rotation in patient positioning. HEART AND VASCULAR STRUCTURES: Stable cardiomegaly. BONES: No acute findings. HARDWARE: None in the chest. OTHER: No other significant finding. IMPRESSION: No discrete radiographic evidence of acute cardiopulmonary abnormality. Persistent card iomegaly. TECHNICAL DOCUMENTATION: JOB ID: [id number] 2010 [email or web address]- All Rights Reserved Reading location - IP/workstation name: [email or web address]
[2019-12-28] MEDS: MAGNESIUM OXIDE 400 MG TABLET PO SCH (18:15)
[2019-12-28] MEDS: RIVAROXABAN 10 MG TABLET PO SCH (18:21)
[2019-12-28] MEDS ORDERED: PIPERACILLIN/TAZOBACTAM 4.5 GM VIAL IV SCH (19:30)
--- NOTE | 2019-12-28 22:05 | PDOC PROGRESS REPORT ---
Subjective Date:: 12/28/19 Subjective:: ANNMARIE ATKINS is a 69 year old female, morbid obesity, diabetes, neuropathy, who was sent by [facility] due to altered mental status. Patient was alert awake and talking and was able to provide most of the history. According to the patient she hit her head while the staff were trying to clean her up. She was given an unknown pain medication which she thinks may be Percocet. She felt groggy and fell asleep and was apparently woken up at around 4 AM by a staff and was asked questions which she was unable to answer because she was so sleepy. All throughout the day yesterday she continued to be groggy and unable to answer much of the steps questions and at one point she reported having hallucinations. She denied any focal weakness, no blurring of vision. In the ED, blood pressure 110/69, heart rate of 60, respiratory rate 18, O2 sat 96%. Neuro exam was nonfocal. CT head was negative. CBC and CMP unremarkable. UA was done which showed positive leukocyte esterase and elevated WBC count. MRI was negative for acute stroke. She was complaining of itchiness head CT she was given Benadryl by the ED. And she has generalized dry skin Hospitalist was was called to admit her for further evaluation and management. She was tested for Covid on Friday as part of [place] protocol as the residents need to be tested as if ever someone from the rehab becomes positive. She was retested a few hours prior to being sent to the ED. Results from [facility] are pending. D2 of hospital say 12/28/19. Patient was seen and examined at bedside. She seems to be more sleepy and she complained that she feels more tired. She has not spiked a fever and WBC count remains normal. Lactate normal too. Bicarb is elevated on CMP so i suspect she may be retaining CO2 chronically . Unable to do ABG. We have not given her any sedating meds besides a 1 time dose of benadryl a nd MRI is negative. Abx switched to zosyn, ammonia ordered. Reason For Visit: ACUTE METABOLIC ENCEPHALOPATHY,MORBID OBESITY Physical Exam Vital Signs: Temp Pulse Resp BP Pulse Ox 98.3 F 90 19 101/56 L 83 L 12/28/19 16:49 12/28/19 16:49 12/28/19 16:49 12/28/19 16:49 12/28/19 16:49 Intake & Output 12/27/19 12/28/19 12/29/19 06:59 06:59 06:59 Intake Total 2049 Output Total 150 Balance 1900 Weight 153 kg General appearance: PRESENT: no acute distress, cooperative, morbidly obese Head exam: PRESENT: atraumatic, normocephalic Eye exam: PRESENT: EOMI, PERRLA Mouth exam: PRESENT: moist Neck exam: PRESENT: full ROM Respiratory exam: PRESENT: clear to auscultation sandee, symmetrical, unlabored Cardiovascular exam: PRESENT: RRR, +S1, +S2 Pulses: PRESENT: +2 pedal pulses bilateral GI/Abdominal exam: PRESENT: normal bowel sounds, soft. ABSENT: rebound, tenderness Gentrourinary exam: PRESENT: indwelling catheter Extremities exam: PRESENT: other - Chronic venous stasis dermatitis bilateral legs. Also with chronic lymphedema Musculoskeletal exam: ABSENT: deformity Neurological exam: PRESENT: alert, awake, oriented to person, oriented to place, oriented to time Psychiatric exam: PRESENT: normal mood Skin exam: PRESENT: normal color Results Laboratory Results: 12/28/19 06:55 12/28/19 12:25 12/27/19 12/28/19 12/28/19 23:08 06:55 06:55 WBC 8.0 RBC 4.30 Hgb 12.8 Hct 39.5 MCV 92 MCH 29.6 MCHC 32.3 RDW 17.0 H Plt Count 424 Seg Neutrophils % 63.6 Sodium Cancelled Potassium Cancelled Chloride Cancelled Carbon Dioxide Cancelled Anion Gap Cancelled BUN Cancelled Creatinine Cancelled Est GFR ( Amer) Cancelled Est GFR (Non-Af Amer) Cancelled Glucose Cancelled Lactic Acid 3.0 H Calcium Cancelled Total Bilirubin Cancelled AST Cancelled Alkaline Phosphatase Cancelled Total Protein Cancelled Albumin Cancelled 12/28/19 12/28/19 12/28/19 06:55 12:25 17:05 WBC RBC Hgb Hct MCV MCH MCHC RDW Plt Count Seg Neutrophils % Sodium 133.4 L Potassium 4.3 Chloride 93 L Carbon Dioxide 34 H Anion Gap 6 BUN 22 H Creatinine 1.52 H Est GFR ( Amer) 41 L Est GFR (Non-Af Amer) Glucose 123 H Lactic Acid 1.6 1.5 Calcium 8.5 Total Bilirubin 0.6 AST 22 Alkaline Phosphatase 92 Total Protein 5.7 L Albumin 2.6 L 12/27/19 12/27/19 12/28/19 15:24 15:24 12:25 Creatine Kinase 40 Troponin I 0.072 0.052 NT-Pro-B Natriuret Pep 12/28/19 12:25 Creatine Kinase Troponin I NT-Pro-B Natriuret Pep 2190 H Impressions: Head CT 12/27/19 14:28 IMPRESSION: 1. No acute intracranial abnormality. 2. Slight to mild incomplete opacification of the mastoid air cells may represent small bilateral mastoid effusions. EVIDENCE OF ACUTE STROKE: NO Head MRI 12/27/19 17:30 IMPRESSION: 1. No abnormal increased signal intensity is present on diffusion-weighted imaging to suggest restricted diffusion/acute infarction. 2. T2/flair weighted imaging reveals multifocal areas of patchy increased signal intensity present in a subcortical and periventricular deep white matter distribution, a nonspecific finding however may be seen with small vessel ischemic change. Chest X-Ray 12/28/19 00:00 IMPRESSION: No discrete radiographic evidence of acute cardiopulmonary abnormality. Persistent cardiomegaly. Assessment and Plan - Diagnosis (1) Acute metabolic encephalopathy Is this a current diagnosis for this admission?: Yes Plan: -Sent from [facility] due to altered mental status after receiving an unknown pain medication. -Is alert awake no focal deficits when I examined her in the ED. -Nonfocal neurologic exam -CT head negative -MRI normal -Ammonia pending -Unsure as to the cause of her lethargy besides the UTI. she does not have a fever and a white count, lactate is normal. Her bicarb is high on the CMP, and I suspect she may be retaining CO2 however she has had this in the past as well. According to the patient she has not used and has not needed a CPAP in the past. (2) UTI (urinary tract infection) Qualifiers: Urinary tract infection type: site unspecified Hematuria presence: without hematuria Qualified Code(s): N39.0 - Urinary tract infection, site not specified Is this a current diagnosis for this admission?: Yes Plan: -She denies having any symptoms of urinary tract infection -UA showed positive leukocyte esterase and WBC count of 76 -Urine culture growing gram-negative rods awaiting specific speciation and sensitivity -On Zosyn for UTI pending sensitivity result. -She did not come in with a Roberts catheter so this should be removed prior to discharge unless she is retaining urine. (3) Lymphedema of both lower extremities Is this a current diagnosis for this admission?: Yes Plan: -This is a chronic problem since the patient is morbidly obese. -We will consult wound care (4) Diabetes mellitus type 2 in obese Is this a current diagnosis for this admission?: Yes Plan: -On Metformin 500 twice daily -We will switch her to sliding scale insulin -Accu-Cheks -Hypoglycemia protocol (5) HTN (hypertension) Qualifiers: Hypertension type: essential hypertension Qualified Code(s): I10 - Essential (primary) hypertension Is this a current diagnosis for this admission?: Yes Plan: -Home meds resumed (6) Morbid obesity with BMI of 50.0-59.9, adult Is this a current diagnosis for this admission?: Yes Plan: Patient is morbidly obese and has been advised multiple times for diet and weight loss. (7) Paroxysmal atrial fibrillation Is this a current diagnosis for this admission?: Yes Plan: On Xarelto -Resumed diltiazem and sotalol for rate control - Time Time Spent with patient: 25-34 minutes Medications reviewed and adjusted accordingly: Yes Anticipated Discharge Disposition: Detention Facility Anticipated Discharge Timeframe: tbd
[2019-12-28 23:17] LABS: VENOUS BLOOD BASE EXCESS 5.7 mmol/L; VENOUS BLOOD HCO3 31.2 mmol/L (20-32); VENOUS BLOOD PCO2 49.2 mmHg (35-63); VENOUS BLOOD PH 7.42 (7.30-7.42)
[2019-12-29] MEDS: PIPERACILLIN SODIUM/TAZOBACTAM 3.375 GM in NORMAL SALINE 100 ML IV SCH ×3 (00:45→15:08)
[2019-12-29] MEDS: RINGERS SOLUTION,LACTATED 1,000 ML IV PRN (04:10)
[2019-12-29] MEDS ORDERED: PIPERACILLIN/TAZOBACTAM 3.375 GM VIAL IV ONE (06:20)
[2019-12-29] MEDS: FAMOTIDINE 20 MG TABLET PO SCH ×2 (09:58→21:12)
[2019-12-29] MEDS: GABAPENTIN 300 MG CAPSULE PO SCH ×2 (09:58→21:12)
[2019-12-29] MEDS: DILTIAZEM HCL 180 MG CAPSULE.CR PO SCH ×2 (09:58→21:12)
[2019-12-29] MEDS: DOCUSATE SODIUM 100 MG/10 ML UDC PO SCH ×2 (09:58→18:58)
[2019-12-29] MEDS: SOTALOL HCL 80 MG TABLET PO SCH ×2 (09:58→18:58)
[2019-12-29] MEDS: NYSTATIN CREAM 15 GM TP SCH ×2 (10:13→19:22)
[2019-12-29 11:02] LABS: ABSOLUTE BASOPHILS # (AUTO) 0.1 10^3/uL (0.0-0.2); ABSOLUTE EOSINOPHILS # (AUTO) 0.3 10^3/uL (0.0-0.6); ABSOLUTE LYMPHOCYTES (AUTO) 1.7 10^3/uL (0.5-4.7); ABSOLUTE NEUT (AUTO) 3.4 10^3/uL (1.7-8.2); EOSINOPHILS % (AUTO) 4.6 % (0-6); HEMATOCRIT 33.9 % (36.0-47.0); HEMOGLOBIN 10.8 g/dL (12.0-15.5); LYMPHOCYTES % (AUTO) 26.9 % (13-45); MEAN CORPUSCULAR HEMOGLOBIN 29.5 pg (27.0-33.4); MEAN CORPUSCULAR HGB CONC 31.7 g/dL (32.0-36.0); MEAN CORPUSCULAR VOLUME 93 fl (80-97); MONOCYTES % (AUTO) 14.9 % (3-13); PLATELET COUNT 365 10^3/uL (150-450); RED BLOOD COUNT 3.65 10^6/uL (3.72-5.28); RED CELL DISTRIBUTION WIDTH 17.6 % (11.5-14.0); SEGMENTED NEUTROPHILS % (AUTO) 52.6 % (42-78); TOTAL CELLS COUNTED % (AUTO) 100 %; WHITE BLOOD COUNT 6.4 10^3/uL (4.0-10.5)
[2019-12-29 12:27] LABS: BLOOD UREA NITROGEN 27 mg/dL (7-20); CALCIUM 8.1 mg/dL (8.4-10.2); CARBON DIOXIDE 34 mmol/L (22-30); CHLORIDE 95 mmol/L (98-107); GLUCOSE 107 mg/dL (75-110); POTASSIUM 4.3 mmol/L (3.6-5.0)
[2019-12-29 12:30] LABS: ANION GAP 4 (5-19)
[2019-12-29] MEDS ORDERED: NORMAL SALINE 1000 ML 1,000 ML IV PRN (15:08)
--- NOTE | 2019-12-29 15:29 | PDOC PROGRESS REPORT ---
Subjective Date:: 12/29/19 Subjective:: Patient denies any shortness of breath today. She denies chest pain. Reason For Visit: ACUTE METABOLIC ENCEPHALOPATHY,MORBID OBESITY Physical Exam Vital Signs: Temp Pulse Resp BP Pulse Ox 97.6 F 51 L 20 118/74 97 12/29/19 13:38 12/29/19 13:38 12/29/19 13:38 12/29/19 13:38 12/29/19 13:38 Intake & Output 12/28/19 12/29/19 12/30/19 06:59 06:59 06:59 Intake Total 2050 655 Output Total 375 Balance 1675 655 Weight 153 kg 172.6 kg General appearance: PRESENT: no acute distress, cooperative, morbidly obese Neck exam: ABSENT: JVD Respiratory exam: PRESENT: clear to auscultation sandee, symmetrical, unlabored. ABSENT: accessory muscle use, tachypnea, wheezes Cardiovascular exam: PRESENT: RRR, +S1, +S2. ABSENT: tachycardia GI/Abdominal exam: PRESENT: soft. ABSENT: rebound, rigid, tenderness Gentrourinary exam: PRESENT: indwelling catheter Extremities exam: PRESENT: pedal edema Neurological exam: PRESENT: alert, awake, oriented to person, oriented to place, oriented to time, oriented to situation Psychiatric exam: ABSENT: agitated, anxious Results Laboratory Results: 12/29/19 10:30 12/29/19 11:56 12/28/19 12/28/19 12/28/19 15:24 17:05 22:02 WBC RBC Hgb Hct MCV MCH MCHC RDW Plt Count Seg Neutrophils % VBG pH VBG pCO2 VBG HCO3 VBG Base Excess Sodium Potassium Chloride Carbon Dioxide Anion Gap BUN Creatinine Est GFR ( Amer) Est GFR (Non-Af Amer) Glucose Lactic Acid 1.5 Calcium Ammonia < 8.7 L TSH 0.74 12/28/19 12/29/19 12/29/19 23:02 10:30 10:30 WBC 6.4 RBC 3.65 L Hgb 10.8 L Hct 33.9 L MCV 93 MCH 29.5 MCHC 31.7 L RDW 17.6 H Plt Count 365 Seg Neutrophils % 52.6 VBG pH 7.42 VBG pCO2 49.2 VBG HCO3 31.2 VBG Base Excess 5.7 Sodium Cancelled Potassium Cancelled Chloride Cancelled Carbon Dioxide Cancelled Anion Gap Cancelled BUN Cancelled Creatinine Cancelled Est GFR ( Amer) Cancelled Est GFR (Non-Af Amer) Cancelled Glucose Cancelled Lactic Acid Calcium Cancelled Ammonia TSH 12/29/19 11:56 WBC RBC Hgb Hct MCV MCH MCHC RDW Plt Count Seg Neutrophils % VBG pH VBG pCO2 VBG HCO3 VBG Base Excess Sodium 133.3 L Potassium 4.3 Chloride 95 L Carbon Dioxide 34 H Anion Gap 4 L BUN 27 H Creatinine 2.03 H Est GFR ( Amer) 29 L Est GFR (Non-Af Amer) Glucose 107 Lactic Acid Calcium 8.1 L Ammonia TSH 12/27/19 14:35 Catheterized Urine Urine Culture - Final Klebsiella Pneumoniae 12/27/19 12/27/19 12/28/19 15:24 15:24 12:25 Creatine Kinase 40 Troponin I 0.072 0.052 NT-Pro-B Natriuret Pep 12/28/19 12:25 Creatine Kinase Troponin I NT-Pro-B Natriuret Pep 2190 H Impressions: Head CT 12/27/19 14:28 IMPRESSION: 1. No acute intracranial abnormality. 2. Slight to mild incomplete opacification of the mastoid air cells may represe nt small bilateral mastoid effusions. EVIDENCE OF ACUTE STROKE: NO Head MRI 12/27/19 17:30 IMPRESSION: 1. No abnormal increased signal intensity is present on diffusion-weighted imaging to suggest restricted diffusion/acute infarction. 2. T2/flair weighted imaging reveals multifocal areas of patchy increased signal intensity present in a subcortical and periventricular deep white matter distribution, a nonspecific finding however may be seen with small vessel ischemic change. Chest X-Ray 12/28/19 00:00 IMPRESSION: No discrete radiographic evidence of acute cardiopulmonary abnormality. Persistent cardiomegaly. Assessment and Plan - Diagnosis (1) SACHIN (acute kidney injury) Is this a current diagnosis for this admission?: Yes (2) Acute metabolic encephalopathy Is this a current diagnosis for this admission?: Yes (3) UTI (urinary tract infection) Qualifiers: Urinary tract infection type: site unspecified Hematuria presence: without hematuria Qualified Code(s): N39.0 - Urinary tract infection, site not specified Is this a current diagnosis for this admission?: Yes (4) Lymphedema of both lower extremities Is this a current diagnosis for this admission?: Yes (5) Diabetes mellitus type 2 in obese Is this a current diagnosis for this admission?: Yes (6) HTN (hypertension) Qualifiers: Hypertension type: essential hypertension Qualified Code(s): I10 - Essential (primary) hypertension Is this a current diagnosis for this admission?: Yes (7) Morbid obesity with BMI of 50.0-59.9, adult Is this a current diagnosis for this admission?: Yes (8) Paroxysmal atrial fibrillation Is this a current diagnosis for this admission?: Yes - Plan Summary Summary: She has not spiked any fevers while she has been here. At least nothing has been documented on the EMR. I confirmed with patient's nurse who states that she has not had any fevers while here. I have also discussed with Svetlana our long term care social worker regarding patient's recent COVID-19 test at [facility] this past Friday. Svetlana has reached out to [facility] we have informed her that her Covid test this past Friday has resulted and was negative. We will continue treatment for her UTI from Klebsiella. I have switched her from IV to oral Keflex based on sensitivity report. She does have an SACHIN as her creatinine is up to 2 today which is a significant increase from her presenting measurement. I have held her Lasix. We will bolus her with a liter of normal saline and 1 her on continuous infusion through the night. Repeat BMP in AM. BUN/Cr ratio is 10 raising a question of postrenal causes as well which we will investigate. We are also awaiting approval for patient's return to SNF. - Time Time Spent with patient: 15-24 minutes Anticipated Discharge Disposition: Intermediate Facility Anticipated Discharge Timeframe: within 24 hours
[2019-12-29] MEDS ORDERED: NORMAL SALINE 1000 ML 1,000 ML IV ONE (15:30)
[2019-12-29] MEDS ORDERED: CEPHALEXIN 500 MG CAPSULE PO SCH (18:00)
[2019-12-29] MEDS: RIVAROXABAN 10 MG TABLET PO SCH (18:58)
[2019-12-29] MEDS: MAGNESIUM OXIDE 400 MG TABLET PO SCH (18:58)
[2019-12-30] MEDS: CEPHALEXIN 500 MG CAPSULE PO SCH ×4 (02:39→22:08)
[2019-12-30 06:42] LABS: ANION GAP 7 (5-19); BLOOD UREA NITROGEN 28 mg/dL (7-20); CALCIUM 8.2 mg/dL (8.4-10.2); CARBON DIOXIDE 33 mmol/L (22-30); CHLORIDE 94 mmol/L (98-107); GLUCOSE 105 mg/dL (75-110)
[2019-12-30] MEDS ORDERED: INFLUENZA QUAD (6MOS+) 2020-21 VAC 0.5 ML SYR IM ONE (08:00)
[2019-12-30] MEDS ORDERED: ALBUMIN HUMAN 12.5 GM/50 ML RTUINJ IV SCH (08:15)
[2019-12-30] MEDS: NYSTATIN CREAM 15 GM TP SCH ×2 (11:49→17:36)
[2019-12-30] MEDS: DOCUSATE SODIUM 100 MG/10 ML UDC PO SCH ×3 (11:50→17:37)
[2019-12-30] MEDS: ALBUMIN HUMAN 12.5 GM/50 ML RTUINJ IV SCH ×3 (11:52→14:54)
--- NOTE | 2019-12-30 12:02 | RADIOLOGY REPORT (SQ) ---
EXAM DESCRIPTION: U/S RETROPERITON LTD IMAGES COMPLETED DATE/TIME: 12/30/2019 8:55 am REASON FOR STUDY: SACHIN COMPARISON: None. TECHNIQUE: Dynamic and static grayscale images acquired of the kidneys and bladder and recorded on P ACS. Additional selected color Doppler and spectral images recorded. LIMITATIONS: Body habitus FINDINGS: RIGHT KIDNEY: Normal size, 10.9 cm. Normal echogenicity. No solid or suspicious darryl s. No hydronephrosis. No calcifications. LEFT KIDNEY: Normal size, 11.3 cm. Normal echogenicity. No solid or suspicious masses. No hydr onephrosis. No calcifications. BLADDER: There is a catheter in the urinary bladder so the bladder is not seen. OTHER FINDINGS: No other significant finding. IMPRESSION: The kidneys are normal in size. No hydronephrosis is present. The bladder is not evalu ated because of the presence of a catheter. TECHNICAL DOCUMENTATION: JOB ID: [id number] 2010 [employer]- All Rights Reserved Reading location - IP/workstation name: [email or web address]
[2019-12-30] MEDS: DILTIAZEM HCL 180 MG CAPSULE.CR PO SCH ×2 (12:04→22:10)
[2019-12-30] MEDS: SOTALOL HCL 80 MG TABLET PO SCH ×3 (12:05→17:58)
[2019-12-30] MEDS: GABAPENTIN 300 MG CAPSULE PO SCH ×2 (12:11→22:07)
[2019-12-30] MEDS: FAMOTIDINE 20 MG TABLET PO SCH ×2 (12:11→22:10)
--- NOTE | 2019-12-30 13:53 | PDOC PROGRESS REPORT ---
Subjective Date:: 12/30/19 Subjective:: Patient feels well today. She still is quite deconditioned. Denies shortness o f breath but is still having cough. She remains afebrile. States she used to take Lasix daily until 2 months ago when she was switched to twice daily dosing. She states she takes Lasix for lymphedema. She denies any history of CHF but admits to history of A. fib. Reason For Visit: ACUTE METABOLIC ENCEPHALOPATHY,MORBID OBESITY Physical Exam Vital Signs: Temp Pulse Resp BP Pulse Ox 98.0 F 64 16 100/53 L 97 12/30/19 10:00 12/30/19 08:00 12/30/19 08:00 12/30/19 08:00 12/30/19 08:00 Intake & Output 12/29/19 12/30/19 12/31/19 06:59 06:59 06:59 Intake Total 2050 2475 672 Output Total 375 400 Balance 1675 2075 672 Weight 172.6 kg 172.6 kg General appearance: PRESENT: no acute distress, cooperative Neck exam: ABSENT: JVD Respiratory exam: PRESENT: clear to auscultation sandee, symmetrical, unlabored. ABSENT: tachypnea, wheezes Cardiovascular exam: PRESENT: RRR, +S1, +S2. ABSENT: tachycardia GI/Abdominal exam: PRESENT: soft. ABSENT: rebound, rigid, tenderness Extremities exam: PRESENT: other - Bilateral lymphedema nonpitting Neurological exam: PRESENT: alert, awake, oriented to person, oriented to place, oriented to time Results Laboratory Results: 12/29/19 10:30 12/30/19 05:20 12/30/19 05:20 Sodium 134.1 L Potassium 4.0 Chloride 94 L Carbon Dioxide 33 H Anion Gap 7 BUN 28 H Creatinine 1.93 H Est GFR ( Amer) 31 L Glucose 105 Calcium 8.2 L 12/27/19 12/27/19 12/28/19 15:24 15:24 12:25 Creatine Kinase 40 Troponin I 0.072 0.052 NT-Pro-B Natriuret Pep 12/28/19 12:25 Creatine Kinase Troponin I NT-Pro-B Natriuret Pep 2190 H Impressions: Head CT 12/27/19 14:28 IMPRESSION: 1. No acute intracranial abnormality. 2. Slight to mild incomplete opacification of the mastoid air cells may represent small bilateral mastoid effusions. EVIDENCE OF ACUTE STROKE: NO Head MRI 12/27/19 17:30 IMPRESSION: 1. No abnormal increased signal intensity is present on diffusion-weighted imaging to suggest restricted diffusion/acute infarction. 2. T2/flair weighted imaging reveals multifocal areas of patchy increased signal intensity present in a subcortical and periventricular deep white matter distribution, a nonspecific finding however may be seen with small vessel ischemic change. Chest X-Ray 12/28/19 00:00 IMPRESSION: No discrete radiographic evidence of acute cardiopulmonary abnormality. Persistent cardiomegaly. Renal Ultrasound 12/30/19 00:00 IMPRESSION: The kidneys are normal in size. No hydronephrosis is present. The bladder is not evaluated because of the presence of a catheter. Assessment and Plan - Diagnosis (1) SACHIN (acute kidney injury) Is this a current diagnosis for this admission?: Yes (2) Acute metabolic encephalopathy Is this a current diagnosis for this admission?: Yes (3) UTI (urinary tract infection) Qualifiers: Urinary tract infection type: site unspecified Hematuria presence: without hematuria Qualified Code(s): N39.0 - Urinary tract infection, site not specified Is this a current diagnosis for this admission?: Yes (4) Lymphedema of both lower extremities Is this a current diagnosis for this admission?: Yes (5) Diabetes mellitus type 2 in obese Is this a current diagnosis for this admission?: Yes (6) HTN (hypertension) Qualifiers: Hypertension type: essential hypertension Qualified Code(s): I10 - Essential (primary) hypertension Is this a current diagnosis for this admission?: Yes (7) Morbid obesity with BMI of 50.0-59.9, adult Is this a current diagnosis for this admission?: Yes (8) Paroxysmal atrial fibrillation Is this a current diagnosis for this admission?: Yes - Plan Summary Summary: We will continue treatment for Klebsiella UTI with Keflex. Kidney function is not much improved from yesterday despite receiving IV fluids. Notably 1.93 today but at least this has come down from 2. I did get a renal ultrasound today which was largely unremarkable with no evidence of hydronephrosis. It is documented that patient only put out about 400 cc yesterday. Patient is notably hypoalbuminemic so I have ordered 37.5 g of albumin infusion this morning and discontinued saline. Lasix still on hold currently We will recheck renal function level this afternoon. We are also awaiting approval for patient's return to SNF. - Time Anticipated Discharge Disposition: [facility] Facility Anticipated Discharge Timeframe: within 24 hours
[2019-12-30] MEDS: ACETAMINOPHEN 325 MG TABLET PO PRN (15:00)
[2019-12-30] MEDS: MAGNESIUM OXIDE 400 MG TABLET PO SCH (17:36)
[2019-12-30] MEDS: RIVAROXABAN 10 MG TABLET PO SCH (17:36)
[2019-12-31] MEDS: CEPHALEXIN 500 MG CAPSULE PO SCH ×4 (05:08→21:28)
[2019-12-31] MEDS: ACETAMINOPHEN 325 MG TABLET PO PRN ×2 (05:09→13:40)
[2019-12-31 08:44] LABS: ANION GAP 9 (5-19); BLOOD UREA NITROGEN 26 mg/dL (7-20); CALCIUM 8.7 mg/dL (8.4-10.2); CARBON DIOXIDE 31 mmol/L (22-30); CHLORIDE 93 mmol/L (98-107); GLUCOSE 101 mg/dL (75-110); POTASSIUM 4.1 mmol/L (3.6-5.0)
[2019-12-31] MEDS: DOCUSATE SODIUM 100 MG/10 ML UDC PO SCH ×2 (10:50→18:41)
[2019-12-31] MEDS: FAMOTIDINE 20 MG TABLET PO SCH ×2 (10:50→21:25)
[2019-12-31] MEDS: DILTIAZEM HCL 180 MG CAPSULE.CR PO SCH ×2 (10:51→21:24)
[2019-12-31] MEDS: SOTALOL HCL 80 MG TABLET PO SCH ×2 (10:52→17:54)
[2019-12-31] MEDS: NYSTATIN CREAM 15 GM TP SCH ×2 (10:55→19:37)
[2019-12-31] MEDS: GABAPENTIN 300 MG CAPSULE PO SCH ×2 (11:07→21:23)
--- NOTE | 2019-12-31 13:39 | PDOC PROGRESS REPORT ---
Subjective Date:: 12/31/19 Subjective:: Patient is doing okay. Has some back pain when she lays down. Renal function i s better. Patient was planned for discharge today but apparently authorization she is still pending re-authorization from insurance and [facility] says they do not have a bed. Reason For Visit: KLEBSIELLA UTI,HYPOALBUMINEMIA, AND OLIGURIA SACHIN Physical Exam Vital Signs: Temp Pulse Resp BP Pulse Ox 97.7 F 58 L 18 101/58 L 94 12/31/19 13:09 12/31/19 13:09 12/31/19 13:09 12/31/19 13:09 12/31/19 13:09 Intake & Output 12/30/19 12/31/19 01/01/20 06:59 06:59 06:59 Intake Total 2475 962 250 Output Total 400 1000 Balance 2074 - 250 Weight 172.6 kg 161.5 kg General appearance: PRESENT: no acute distress, cooperative Neck exam: ABSENT: JVD Respiratory exam: PRESENT: unlabored. ABSENT: accessory muscle use, tachypnea Neurological exam: PRESENT: alert, awake, oriented to person, oriented to place, oriented to time Psychiatric exam: ABSENT: agitated, anxious Results Laboratory Results: 12/29/19 10:30 12/31/19 07:38 12/30/19 12/31/19 14:54 07:38 Sodium 132.5 L Potassium 4.1 Chloride 93 L Carbon Dioxide 31 H Anion Gap 9 BUN 26 H Creatinine 1.76 H 1.55 H Est GFR ( Amer) 35 L 40 L Glucose 101 Calcium 8.7 12/27/19 12/27/19 12/28/19 15:24 15:24 12:25 Creatine Kinase 40 Troponin I 0.072 0.052 NT-Pro-B Natriuret Pep 12/28/19 12:25 Creatine Kinase Troponin I NT-Pro-B Natriuret Pep 2190 H Impressions: Head CT 12/27/19 14:28 IMPRESSION: 1. No acute intracranial abnormality. 2. Slight to mild incomplete opacification of the mastoid air cells may represent small bilateral mastoid effusions. EVIDENCE OF ACUTE STROKE: NO Head MRI 12/27/19 17:30 IMPRESSION: 1. No abnormal increased signal intensity is present on diffusion-weighted imaging to suggest restricted diffusion/acute infarction. 2. T2/flair weighted imaging reveals multifocal areas of patchy increased signal intensity present in a subcortical and periventricular deep white matter distribution, a nonspecific finding however may be seen with small vessel ischemic change. Chest X-Ray 12/28/19 00:00 IMPRESSION: No discrete radiographic evidence of acute cardiopulmonary abnormality. Persistent cardiomegaly. Renal Ultrasound 12/30/19 00:00 IMPRESSION: The kidneys are normal in size. No hydronephrosis is present. The bladder is not evaluated because of the presence of a catheter. Assessment and Plan - Diagnosis (1) SACHIN (acute kidney injury) Is this a current diagnosis for this admission?: Yes (2) Acute metabolic encephalopathy Is this a current diagnosis for this admission?: Yes (3) UTI (urinary tract infection) Qualifiers: Urinary tract infection type: site unspecified Hematuria presence: without hematuria Qualified Code(s): N39.0 - Urinary tract infection, site not specified Is this a current diagnosis for this admission?: Yes (4) Lymphedema of both lower extremities Is this a current diagnosis for this admission?: Yes (5) Diabetes mellitus type 2 in obese Is this a current diagnosis for this admission?: Yes (6) HTN (hypertension) Qualifiers: Hypertension type: essential hypertension Qualified Code(s): I10 - Essential (primary) hypertension Is this a current diagnosis for this admission?: Yes (7) Morbid obesity with BMI of 50.0-59.9, adult Is this a current diagnosis for this admission?: Yes (8) Paroxysmal atrial fibrillation Is this a current diagnosis for this admission?: Yes - Plan Summary Summary: We will continue treatment for Klebsiella UTI with Keflex for 1 more day Patient actually diuresed quite a bit after receiving albumin yesterday. Kidney function improved subsequently. Creatinine is now 1.55 from 2. I will give her a small dose of albumin today. Keep Lasix on hold. Leg elevation for chronic lymphedema. Patient remains pending SNF availability - Time Time Spent with patient: Less than 15 minutes Anticipated Discharge Disposition: Longterm Facility Anticipated Discharge Timeframe: when bed available
[2019-12-31] MEDS: ALBUMIN HUMAN 12.5 GM/50 ML RTUINJ IV SCH ×2 (17:53→18:41)
[2019-12-31] MEDS: MAGNESIUM OXIDE 400 MG TABLET PO SCH (17:54)
[2019-12-31] MEDS: RIVAROXABAN 10 MG TABLET PO SCH (17:54)
[2020-01-01] MEDS ORDERED: CEPHALEXIN 500 MG CAPSULE ONE (03:33)
[2020-01-01] MEDS: CEPHALEXIN 500 MG CAPSULE PO SCH ×4 (03:37→19:25)
[2020-01-01 07:41] LABS: ANION GAP 9 (5-19); BLOOD UREA NITROGEN 21 mg/dL (7-20); CALCIUM 8.9 mg/dL (8.4-10.2); CARBON DIOXIDE 29 mmol/L (22-30); CHLORIDE 95 mmol/L (98-107); GLUCOSE 101 mg/dL (75-110); POTASSIUM 4.2 mmol/L (3.6-5.0)
--- NOTE | 2020-01-01 10:23 | PDOC PROGRESS REPORT ---
Subjective Date:: 01/01/20 Reason For Visit: KLEBSIELLA UTI,HYPOALBUMINEMIA, AND OLIGURIA SACHIN Physical Exam Vital Signs: Temp Pulse Resp BP Pulse Ox 97.8 F 59 L 20 102/43 L 97 01/01/20 09:08 01/01/20 08:32 01/01/20 08:32 01/01/20 08:32 01/01/20 08:32 Intake & Output 12/31/19 01/01/20 01/02/20 06:59 06:59 06:59 Intake Total 962 530 Output Total 1000 1100 700 Balance -38 -570 -700 Weight 161.5 kg 161 kg General appearance: PRESENT: no acute distress, cooperative, morbidly obese Neck exam: ABSENT: JVD Respiratory exam: PRESENT: clear to auscultation sandee, unlabored. ABSENT: accessory muscle use, retraction Cardiovascular exam: PRESENT: +S1, +S2. ABSENT: tachycardia Psychiatric exam: ABSENT: agitated, anxious Results Laboratory Results: 12/29/19 10:30 01/01/20 06:40 01/01/20 06:40 Sodium 132.8 L Potassium 4.2 Chloride 95 L Carbon Dioxide 29 Anion Gap 9 BUN 21 H Creatinine 1.13 Est GFR ( Amer) 58 L Glucose 101 Calcium 8.9 12/27/19 12/27/19 12/28/19 15:24 15:24 12:25 Creatine Kinase 40 Troponin I 0.072 0.052 NT-Pro-B Natriuret Pep 12/28/19 12:25 Creatine Kinase Troponin I NT-Pro-B Natriuret Pep 2190 H Impressions: Head CT 12/27/19 14:28 IMPRESSION: 1. No acute intracranial abnormality. 2. Slight to mild incomplete opacification of the mastoid air cells may represent small bilateral mastoid effusions. EVIDENCE OF ACUTE STROKE: NO Head MRI 12/27/19 17:30 IMPRESSION: 1. No abnormal increased signal intensity is present on diffusion-weighted imaging to suggest restricted diffusion/acute infarction. 2. T2/flair weighted imaging reveals multifocal areas of patchy increased signal intensity present in a subcortical and periventricular deep white matter distribution, a nonspecific finding however may be seen with small vessel ischemic change. Chest X-Ray 12/28/19 00:00 IMPRESSION: No discrete radiographic evidence of acute cardiopulmonary abnormality. Persistent cardiomegaly. Renal Ultrasound 12/30/19 00:00 IMPRESSION: The kidneys are normal in size. No hydronephrosis is present. The bladder is not evaluated because of the presence of a catheter. Assessment and Plan - Diagnosis (1) SACHIN (acute kidney injury) Is this a current diagnosis for this admission?: Yes (2) Acute metabolic encephalopathy Is this a current diagnosis for this admission?: Yes (3) UTI (urinary tract infection) Qualifiers: Urinary tract infection type: site unspecified Hematuria presence: without hematuria Qualified Code(s): N39.0 - Urinary tract infection, site not specified Is this a current diagnosis for this admission?: Yes (4) Lymphedema of both lower extremities Is this a current diagnosis for this admission?: Yes (5) Diabetes mellitus type 2 in obese Is this a current diagnosis for this admission?: Yes (6) HTN (hypertension) Qualifiers: Hypertension type: essential hypertension Qualified Code(s): I10 - Essential (primary) hypertension Is this a current diagnosis for this admission?: Yes (7) Morbid obesity with BMI of 50.0-59.9, adult Is this a current diagnosis for this admission?: Yes (8) Paroxysmal atrial fibrillation Is this a current diagnosis for this admission?: Yes - Plan Summary Summary: We will continue treatment for Klebsiella UTI with Keflex day 06/14 net negative I/Os Kidney function improved substantially. Keep Lasix on hold. Leg elevation for chronic lymphedema. Patient remains pending SNF availability - Time Time Spent with patient: Less than 15 minutes Anticipated Discharge Disposition: [facility] Facility Anticipated Discharge Timeframe: when bed available
[2020-01-01] MEDS: DILTIAZEM HCL 180 MG CAPSULE.CR PO SCH ×2 (13:02→22:11)
[2020-01-01] MEDS: SOTALOL HCL 80 MG TABLET PO SCH ×2 (13:02→19:24)
[2020-01-01] MEDS: FAMOTIDINE 20 MG TABLET PO SCH ×2 (13:04→22:11)
[2020-01-01] MEDS: DOCUSATE SODIUM 100 MG/10 ML UDC PO SCH ×2 (13:04→17:01)
[2020-01-01] MEDS: GABAPENTIN 300 MG CAPSULE PO SCH ×2 (13:04→22:11)
[2020-01-01] MEDS: ACETAMINOPHEN 325 MG TABLET PO PRN ×2 (13:08→22:14)
[2020-01-01] MEDS: NYSTATIN CREAM 15 GM TP SCH ×2 (13:09→19:26)
[2020-01-01] MEDS: MAGNESIUM OXIDE 400 MG TABLET PO SCH (19:24)
[2020-01-01] MEDS: RIVAROXABAN 10 MG TABLET PO SCH (19:25)
[2020-01-02] MEDS: CEPHALEXIN 500 MG CAPSULE PO SCH ×4 (00:29→17:45)
[2020-01-02] MEDS: SOTALOL HCL 80 MG TABLET PO SCH ×3 (09:43→17:44)
[2020-01-02] MEDS: DOCUSATE SODIUM 100 MG/10 ML UDC PO SCH ×2 (09:56→18:18)
[2020-01-02] MEDS: GABAPENTIN 300 MG CAPSULE PO SCH ×2 (09:57→22:25)
[2020-01-02] MEDS: NYSTATIN CREAM 15 GM TP SCH ×2 (09:58→19:22)
[2020-01-02] MEDS: FAMOTIDINE 20 MG TABLET PO SCH ×2 (09:58→22:25)
[2020-01-02] MEDS: DILTIAZEM HCL 180 MG CAPSULE.CR PO SCH ×2 (09:58→22:25)
--- NOTE | 2020-01-02 11:13 | PDOC PROGRESS REPORT ---
Subjective Date:: 01/02/20 Subjective:: Complains of some left thigh pain at the site where she hit her thigh after expe riencing a fall while she was at the shelter. Otherwise she is doing fine. She denies any shortness of breath. Reason For Visit: KLEBSIELLA UTI,HYPOALBUMINEMIA, AND OLIGURIA SACHIN Physical Exam Vital Signs: Temp Pulse Resp BP Pulse Ox 97.8 F 82 20 108/68 97 01/02/20 08:21 01/02/20 07:50 01/02/20 07:50 01/02/20 07:50 01/02/20 07:50 Intake & Output 01/01/20 01/02/20 01/03/20 06:59 06:59 06:59 Intake Total 530 840 50 Output Total 1100 950 Balance -570 -110 50 Weight 161 kg 159.2 kg General appearance: PRESENT: no acute distress, cooperative, obese Neck exam: ABSENT: JVD Respiratory exam: PRESENT: clear to auscultation sandee, unlabored. ABSENT: accessory muscle use, retraction Neurological exam: PRESENT: alert, awake, oriented to person, oriented to place, oriented to time Results Laboratory Results: 12/29/19 10:30 01/01/20 06:40 12/28/19 06:55 Blood Blood Culture - Final NO GROWTH IN 5 DAYS 12/27/19 23:08 Blood Blood Culture - Final NO GROWTH IN 5 DAYS 12/27/19 12/27/19 12/28/19 15:24 15:24 12:25 Creatine Kinase 40 Troponin I 0.072 0.052 NT-Pro-B Natriuret Pep 12/28/19 12:25 Creatine Kinase Troponin I NT-Pro-B Natriuret Pep 2190 H Impressions: Head CT 12/27/19 14:28 IMPRESSION: 1. No acute intracranial abnormality. 2. Slight to mild incomplete opacification of the mastoid air cells may represent small bilateral mastoid effusions. EVIDENCE OF ACUTE STROKE: NO Head MRI 12/27/19 17:30 IMPRESSION: 1. No abnormal increased signal intensity is present on diffusion-weighted imaging to suggest restricted diffusion/acute infarction. 2. T2/flair weighted imaging reveals multifocal areas of patchy increased signal intensity present in a subcortical and periventricular deep white matter distribution, a nonspecific finding however may be seen with small vessel ischemic change. Chest X-Ray 12/28/19 00:00 IMPRESSION: No discrete radiographic evidence of acute cardiopulmonary abnormality. Persistent cardiomegaly. Renal Ultrasound 12/30/19 00:00 IMPRESSION: The kidneys are normal in size. No hydronephrosis is present. The bladder is not evaluated because of the presence of a catheter. Assessment and Plan - Diagnosis (1) SACHIN (acute kidney injury) Is this a current diagnosis for this admission?: Yes (2) Acute metabolic encephalopathy Is this a current diagnosis for this admission?: Yes (3) UTI (urinary tract infection) Qualifiers: Urinary tract infection type: site unspecified Hematuria presence: without hematuria Qualified Code(s): N39.0 - Urinary tract infection, site not specified Is this a current diagnosis for this admission?: Yes (4) Lymphedema of both lower extremities Is this a current diagnosis for this admission?: Yes (5) Diabetes mellitus type 2 in obese Is this a current diagnosis for this admission?: Yes (6) HTN (hypertension) Qualifiers: Hypertension type: essential hypertension Qualified Code(s): I10 - Essential (primary) hypertension Is this a current diagnosis for this admission?: Yes (7) Morbid obesity with BMI of 50.0-59.9, adult Is this a current diagnosis for this admission?: Yes (8) Paroxysmal atrial fibrillation Is this a current diagnosis for this admission?: Yes - Plan Summary Summary: Briefly, patient was admitted for altered mental status and fall at [facility]. Stroke work-up was done with MRI was negative for acute stroke. It seems patient received pain medication at the facility Per admission H&P but is uncertain if it was a narcotic. She was noted to have a UTI growing Klebsiella and was started on IV antibiotics then later switched to Keflex. She has completed 5 days of antibiotics. Her encephalopathy has resolved. She did notably have a significant SACHIN. Her creatinine was 1 in the ER on 12/26 but jumped to 1.5 on 12/27. From MAR review, it seems she was then placed on IV fluids but her Lasix 40 mg twice daily was continued. Creatinine then jumped to 2.0 the next day so I held her Lasix and give her IV fluids on 12/28. Also tried some albumin infusions on 12/29 and 12/30 because she was hypoalbuminemic. Her creatinine subsequently showed good improvement and is back to 1.1. She takes Lasix for fluid retention in her legs. I did talk talk to her about keeping her Lasix on hold for a few days and restarting at a reduced dose with close monitoring of kidney function. She is very deconditioned due to her super obesity and certainly needs to go back to SNF. Unfortunately, [facility] has required reauthorization before ac cepting patient back so this is delaying patient's discharge. [employer] is following this closely. - Time Time Spent with patient: Less than 15 minutes Anticipated Discharge Disposition: Assisted Facility Anticipated Discharge Timeframe: when bed available
[2020-01-02] MEDS: MAGNESIUM OXIDE 400 MG TABLET PO SCH (17:44)
[2020-01-02] MEDS: RIVAROXABAN 10 MG TABLET PO SCH (17:44)
[2020-01-03] MEDS: ACETAMINOPHEN 325 MG TABLET PO PRN ×3 (03:31→19:49)
[2020-01-03] MEDS: FAMOTIDINE 20 MG TABLET PO SCH ×2 (09:42→21:38)
[2020-01-03] MEDS: GABAPENTIN 300 MG CAPSULE PO SCH ×2 (09:44→21:38)
[2020-01-03] MEDS: DILTIAZEM HCL 180 MG CAPSULE.CR PO SCH ×2 (09:45→21:37)
[2020-01-03] MEDS: SOTALOL HCL 80 MG TABLET PO SCH ×2 (09:45→18:21)
[2020-01-03] MEDS: NYSTATIN CREAM 15 GM TP SCH ×2 (09:46→18:24)
[2020-01-03] MEDS: DOCUSATE SODIUM 100 MG/10 ML UDC PO SCH ×2 (09:47→18:25)
[2020-01-03 10:05] LABS: HEMOGLOBIN 10.6 g/dL (12.0-15.5); MEAN CORPUSCULAR HEMOGLOBIN 29.9 pg (27.0-33.4); MEAN CORPUSCULAR HGB CONC 32.2 g/dL (32.0-36.0); MEAN CORPUSCULAR VOLUME 93 fl (80-97); PLATELET COUNT 329 10^3/uL (150-450); RED BLOOD COUNT 3.55 10^6/uL (3.72-5.28); RED CELL DISTRIBUTION WIDTH 17.4 % (11.5-14.0); WHITE BLOOD COUNT 5.7 10^3/uL (4.0-10.5)
[2020-01-03 10:09] LABS: BLOOD UREA NITROGEN 13 mg/dL (7-20); CALCIUM 8.9 mg/dL (8.4-10.2); CARBON DIOXIDE 32 mmol/L (22-30); GLUCOSE 97 mg/dL (75-110)
[2020-01-03 10:11] LABS: ANION GAP 6 (5-19); CHLORIDE 99 mmol/L (98-107)
--- NOTE | 2020-01-03 15:53 | PDOC PROGRESS REPORT ---
Subjective Date:: 01/03/20 Subjective:: Patient was seen and examined. She is laying in bed comfortably. She continues to be stable on 2 L of nasal cannula oxygen. Reason For Visit: KLEBSIELLA UTI,HYPOALBUMINEMIA, AND OLIGURIA SACHIN Physical Exam Vital Signs: Temp Pulse Resp BP Pulse Ox 97.9 F 56 L 20 132/71 H 100 01/03/20 11:06 01/03/20 11:06 01/03/20 11:06 01/03/20 11:06 01/03/20 11:06 Intake & Output 01/02/20 01/03/20 01/04/20 06:59 06:59 06:59 Intake Total 840 100 240 Output Total 950 Balance -110 100 240 Weight 350 lb 15.614 oz 350 lb 8.56 oz Exam: General appearance: PRESENT: no acute distress, cooperative, obese Neck exam: ABSENT: JVD Respiratory exam: PRESENT: clear to auscultation sandee, unlabored. ABSENT: accessory muscle use, retraction Neurological exam: PRESENT: alert, awake, oriented to person, oriented to place, oriented to time Results Laboratory Results: 01/03/20 09:19 01/03/20 09:19 01/03/20 01/03/20 09:19 09:19 WBC 5.7 RBC 3.55 L Hgb 10.6 L Hct 33.0 L MCV 93 MCH 29.9 MCHC 32.2 RDW 17.4 H Plt Count 329 Sodium 136.6 L Potassium 4.0 Chloride 99 Carbon Dioxide 32 H Anion Gap 6 BUN 13 Creatinine 0.76 Est GFR ( Amer) > 60 Glucose 97 Calcium 8.9 12/27/19 12/27/19 12/28/19 15:24 15:24 12:25 Creatine Kinase 40 Troponin I 0.072 0.052 NT-Pro-B Natriuret Pep 12/28/19 12:25 Creatine Kinase Troponin I NT-Pro-B Natriuret Pep 2190 H Impressions: Head CT 12/27/19 14:28 IMPRESSION: 1. No acute intracranial abnormality. 2. Slight to mild incomplete opacification of the mastoid air cells may represent small bilateral mastoid effusions. EVIDENCE OF ACUTE STROKE: NO Head MRI 12/27/19 17:30 IMPRESSION: 1. No abnormal increased signal intensity is present on diffusion-weighted imaging to suggest restricted diffusion/acute infarction. 2. T2/flair weighted imaging reveals multifocal areas of patchy increased signal intensity present in a subcortical and periventricular deep white matter distribution, a nonspecific finding however may be seen with small vessel ischemic change. Chest X-Ray 12/28/19 00:00 IMPRESSION: No discrete radiographic evidence of acute cardiopulmonary abnormality. Persistent cardiomegaly. Renal Ultrasound 12/30/19 00:00 IMPRESSION: The kidneys are normal in size. No hydronephrosis is present. The bladder is not evaluated because of the presence of a catheter. Assessment and Plan - Diagnosis (1) SACHIN (acute kidney injury) Is this a current diagnosis for this admission?: Yes Plan: Resolved (2) Acute metabolic encephalopathy Is this a current diagnosis for this admission?: Yes Plan: -Sent from [facility] due to altered mental status after receiving an unknown pain medication. -Is alert awake no focal deficits when I examined her in the ED. -Nonfocal neurologic exam -CT head negative -MRI normal -Ammonia normal (3) UTI (urinary tract infection) Qualifiers: Urinary tract infection type: site unspecified Hematuria presence: without hematuria Qualified Code(s): N39.0 - Urinary tract infection, site not specified Is this a current diagnosis for this admission?: Yes Plan: -Urine culture positive for Klebsiella -Finished antibiotics -She did not come in with a Roberts catheter so this should be removed prior to discharge unless she is retaining urine. (4) Lymphedema of both lower extremities Is this a current diagnosis for this admission?: Yes Plan: -This is a chronic problem since the patient is morbidly obese. Continue wound care (5) Morbid obesity with BMI of 60.0-69.9, adult Is this a current diagnosis for this admission?: Yes Plan: Recommend lifestyle modifications (6) Diabetes mellitus type 2 in obese Is this a current diagnosis for this admission?: Yes Plan: Resume metformin (7) HTN (hypertension) Qualifiers: Hypertension type: essential hypertension Qualified Code(s): I10 - Essential (primary) hypertension Is this a current diagnosis for this admission?: Yes Plan: -Home meds resumed (8) Paroxysmal atrial fibrillation Is this a current diagnosis for this admission?: Yes Plan: On Xarelto -Resumed diltiazem and sotalol for rate control - Plan Summary Summary: Briefly, patient was admitted for altered mental status and fall at [facility]. Stroke work-up was done with MRI was negative for acute stroke. It seems patient received pain medication at the facility Per admission H&P but is uncertain if it was a narcotic. She was noted to have a UTI growing Klebsiella and was started on IV antibiotics then later switched to Keflex. She has completed 5 days of antibiotics. Her encephalopathy has resolved. She did notably have a significant SACHIN. Her creatinine was 1 in the ER on 12/26 but jumped to 1.5 on 12/27. From MAR review, it seems she was then placed on IV fluids but her Lasix 40 mg twice daily was continued. Creatinine then jumped to 2.0 the next day so I held her Lasix and give her IV fluids on 12/28. Also tried some albumin infusions on 12/29 and 12/30 because she was hypoalbuminemic. Her creatinine subsequently showed good improvement and is back to 1.1. She takes Lasix for fluid retention in her legs. I did talk talk to her about keeping her Lasix on hold for a few days and restarting at a reduced dose with close monitoring of kidney function. She is very deconditioned due to her super obesity and certainly needs to go back to SNF. Unfortunately, has required reauthorization before accepting patient back so this is delaying patient's discharge. environmental emergencies planner is following this closely. - Time Anticipated Discharge Disposition: [facility] Facility Anticipated Discharge Timeframe: na
[2020-01-03] MEDS: RIVAROXABAN 10 MG TABLET PO SCH (18:21)
[2020-01-03] MEDS: MAGNESIUM OXIDE 400 MG TABLET PO SCH (18:24)
[2020-01-03] MEDS: METFORMIN HCL 500 MG TABLET PO SCH (18:24)
[2020-01-03] MEDS ORDERED: METOPROLOL TARTRATE PF/INJ 5 MG/5 ML SDV IV PRN (23:36)
[2020-01-03] MEDS ORDERED: METOPROLOL TARTRATE PF/INJ 5 MG/5 ML SDV IV ONE (23:36)
--- NOTE | 2020-01-04 07:28 | EKG REPORT ---
SEVERITY:- ABNORMAL ECG - ATRIAL FIBRILLATION BORDERLINE LEFT AXIS DEVIATION LOW VOLTAGE IN FRONTAL LEADS NONSPECIFIC T ABNORMALITIES, ANT-LAT LEADS : Confirmed by: Ga Washington MD 04-Jan-2020 07:27:18
[2020-01-04] MEDS: DILTIAZEM HCL 180 MG CAPSULE.CR PO SCH (11:16)
[2020-01-04] MEDS: SOTALOL HCL 80 MG TABLET PO SCH ×2 (11:16→17:20)
[2020-01-04] MEDS: METFORMIN HCL 500 MG TABLET PO SCH ×2 (11:17→17:20)
[2020-01-04] MEDS: FAMOTIDINE 20 MG TABLET PO SCH (11:17)
[2020-01-04] MEDS: GABAPENTIN 300 MG CAPSULE PO SCH (11:21)
[2020-01-04] MEDS: DOCUSATE SODIUM 100 MG/10 ML UDC PO SCH ×2 (11:22→17:21)
--- NOTE | 2020-01-04 13:12 | PDOC TRANSFER SUMMARY ---
Impression - Admit/DC Date/PCP Admission Date/Primary Care Provider: 12/30/19 16:46 OLIVERIO CALIX, Discharge Date: 01/04/20 - Discharge Diagnosis (1) SACHIN (acute kidney injury) Is this a current diagnosis for this admission?: Yes (2) Acute metabolic encephalopathy Is this a current diagnosis for this admission?: Yes (3) UTI (urinary tract infection) Is this a current diagnosis for this admission?: Yes (4) Lymphedema of both lower extremities Is this a current diagnosis for this admission?: Yes (5) Morbid obesity with BMI of 60.0-69.9, adult Is this a current diagnosis for this admission?: Yes (6) Diabetes mellitus type 2 in obese Is this a current diagnosis for this admission?: Yes (7) HTN (hypertension) Is this a current diagnosis for this admission?: Yes (8) Paroxysmal atrial fibrillation Is this a current diagnosis for this admission?: Yes - Assessment Summary: Briefly, patient was admitted for altered mental status and fall at [facility]. Stroke work-up was done with MRI was negative for acute stroke. It seems patient received pain medication at the facility Per admission H&P but is uncertain if it was a narcotic. She was noted to have a UTI growing Klebsiella and was started on IV antibiotics then later switched to Keflex. She has completed 5 days of antibiotics. Her encephalopathy has resolved. She did notably have a significant SACHIN. Her creatinine was 1 in the ER on 12/26 but jumped to 1.5 on 12/27. From MAR review, it seems she was then placed on IV fluids but her Lasix 40 mg twice daily was continued. Creatinine then jumped to 2.0 the next day so I held her Lasix and give her IV fluids on 12/28. Also tried some albumin infusions on 12/29 and 12/30 because she was hypoalbuminemic. Her creatinine subsequently showed good improvement and is back to 1.1. She takes Lasix for fluid retention in her legs. I did talk talk to her about keeping her Lasix on hold for a few days and restarting at a reduced dose with close monitoring of kidney function. She is very deconditioned due to her super obesity and certainly needs to go back to SNF. Unfortunately, [facility] has required reauthorization before accepting patient back so this is delaying patient's discharge. marketing planner is following this closely. - Additional Information Discharge Diet: As Tolerated Discharge Activity: Activity As Tolerated Referrals: RODNEY MCKNIGHT MD [NO LOCAL MD] - Follow up as needed Prescriptions: Cefuroxime Axetil [Ceftin 500 mg Tablet] 500 mg PO BID 7 Days #14 tablet Ondansetron [Zofran Odt 4 mg Tablet] 4 mg PO Q6HP PRN 3 Days #10 tab.rapdis PRN Reason: Home Medications: Diltiazem HCl [Diltiazem 24Hr ER (Cd)] 180 mg PO Q12 07/25/16 Folic Acid 1 mg PO DAILY 07/25/16 Furosemide 40 mg PO BID 07/25/16 Magnesium Oxide 400 mg PO QPM 07/25/16 Metformin HCl 500 mg PO BIDBS 07/25/16 Rivaroxaban [Xarelto] 20 mg PO QPM 07/25/16 Sotalol HCl [Sotalol] 160 mg PO BID 07/25/16 Gabapentin [Neurontin 300 mg Capsule] 600 mg PO Q12 08/04/19 Multivitamin [Chewable-Tamiko] 1 each PO DAILY 12/08/19 Potassium Chloride [Klor-Con M20] 20 meq PO BID 12/27/19 Tramadol HCl [Ultram] 100 mg PO TID 12/27/19 Cefuroxime Axetil [Ceftin 500 mg Tablet] 500 mg PO BID 7 Days #14 tablet 12/28/19 Nystatin [Mycostatin Cream 15 gm] 1 applic TP BID tube 12/28/19 Ondansetron [Zofran Odt 4 mg Tablet] 4 mg PO Q6HP PRN 3 Days #10 tab.rapdis 12/28/19 History of Present Illiness History of Present Illness: ANNMARIE ATKINS is a 69 year old female Hospital Course Hospital Course: (1) SACHIN (acute kidney injury) Resolved (2) Acute metabolic encephalopathy -[facility] to [facility] mental status after receiving an unknown pain medication. -Is alert awake no focal deficits when I examined her in the ED. -Nonfocal neurologic exam -CT head negative -MRI normal -Ammonia normal (3) UTI (urinary tract infection) -Urine culture positive for Klebsiella -Finished antibiotics -She did not come in with a Roberts catheter so this should be removed prior to discharge unless she is retaining urine. (4) Lymphedema of both lower extremities -This is a chronic problem since the patient is morbidly obese. Continue wound care (5) Morbid obesity with BMI of 60.0-69.9, adult Recommend lifestyle modifications (6) Diabetes mellitus type 2 in obese Resume metformin (7) HTN (hypertension) -Home meds resumed (8) Paroxysmal atrial fibrillation On Xarelto -Resumed diltiazem and sotalol for rate control Plan Summary Briefly, patient was admitted for altered mental status and fall at [facility]. Stroke work-up was done with MRI was negative for acute stroke. It seems patient received pain medication at the facility Per admission H&P but is uncertain if it was a narcotic. She was noted to have a UTI growing Klebsiella and was started on IV antibiotics then later switched to Keflex. She has completed 5 days of antibiotics. Her encephalopathy has resolved. She did notably have a significant SACHIN. Her creatinine was 1 in the ER on 12/26 but jumped to 1.5 on 12/27. From MAR review, it seems she was then placed on IV fluids but her Lasix 40 mg twice daily was continued. Creatinine then jumped to 2.0 the next day so we held her Lasix and give her IV fluids on 12/28. Also tried some albumin infusions on 12/29 and 12/30 because she was hypoalbuminemic. Her creatinine subsequently showed good improvement and is back to 1.1. It is 0.76 now. She takes Lasix for fluid retention in her legs. She is very deconditioned due to her super obesity and certainly needs to go back to SNF. Physical Exam Vital Signs: Temp Pulse Resp BP Pulse Ox 97.3 F 87 18 132/58 H 100 01/04/20 12:00 01/04/20 12:00 01/04/20 12:00 01/04/20 12:00 01/04/20 12:00 Intake & Output 01/03/20 01/04/20 01/05/20 06:59 06:59 06:59 Intake Total 100 440 120 Balance 100 440 120 Weight 350 lb 8.56 oz 347 lb 0.121 oz Exam: General appearance: PRESENT: no acute distress, cooperative, obese Neck exam: ABSENT: JVD Respiratory exam: PRESENT: clear to auscultation sandee, unlabored. ABSENT: accessory muscle use, retraction Neurological exam: PRESENT: alert, awake, oriented to person, oriented to place, oriented to time Results Laboratory Results: WBC 5.7 10^3/uL (4.0-10.5) 01/03/20 09:19 RBC 3.55 10^6/uL (3.72-5.28) L 01/03/20 09:19 Hgb 10.6 g/dL (12.0-15.5) L 01/03/20 09:19 Hct 33.0 % (36.0-47.0) L 01/03/20 09:19 MCV 93 fl (80-97) 01/03/20 09:19 MCH 29.9 pg (27.0-33.4) 01/03/20 09: MCHC 32.2 g/dL (32.0-36.0) 01/03/20 09:19 RDW 17.4 % (11.5-14.0) H 01/03/20 09:19 Plt Count 329 10^3/uL (150-450) 01/03/20 09:19 Lymph % (Auto) 26.9 % (13-45) 12/29/19 10:30 [place] % (Auto) 14.9 % (3-13) H 12/29/19 10:30 Eos % (Auto) 4.6 % (0-6) 12/29/19 10:30 Baso % (Auto) 1.0 % (0-2) 12/29/19 10:30 Absolute Neuts (auto) 3.4 10^3/uL (1.7-8.2) 12/29/19 10:30 Absolute Lymphs (auto) 1.7 10^3/uL (0.5-4.7) 12/29/19 10:30 Absolute Monos (auto) 1.0 10^3/uL (0.1-1.4) 12/29/19 10:30 Absolute Eos (auto) 0.3 10^3/uL (0.0-0.6) 12/29/19 10:30 Absolute Basos (auto) 0.1 10^3/uL (0.0-0.2) 12/29/19 10:30 Seg Neutrophils % 52.6 % (42-78) 12/29/19 10:30 VBG pH 7.42 (7.30-7.42) 12/28/19 23:02 VBG pCO2 49.2 mmHg (35-63) 12/28/19 23:02 VBG HCO3 31.2 mmol/L (20-32) 12/28/19 23:02 VBG Base Excess 5.7 mmol/L 12/28/19 23:02 Sodium 136.6 mmol/L (137-145) L 01/03/20 09:19 Potassium 4.0 mmol/L (3.6-5.0) 01/03/20 09:19 Chloride 99 mmol/L (98-107) 01/03/20 09:19 Carbon Dioxide 32 mmol/L (22-30) H 01/03/20 09:19 Anion Gap 6 (5-19) 01/03/20 09:19 BUN 13 mg/dL (7-20) 01/03/20 09:19 Creatinine 0.76 mg/dL (0.52-1.25) 01/03/20 09:19 Est GFR ( Amer) > 60 (>60) 01/03/20 09:19 Est GFR (Non-Af Amer) Cancelled 12/29/19 10:30 Est GFR (MDRD) Non-Af > 60 (>60) 01/03/20 09:19 Glucose 97 mg/dL (75-110) 01/03/20 09:19 Lactic Acid 1.5 mmol/L (0.7-2.1) 12/28/19 17:05 Calcium 8.9 mg/dL (8.4-10.2) 01/03/20 09:19 Total Bilirubin 0.6 mg/dL (0.2-1.3) 12/28/19 12:25 Direct Bilirubin 0.1 mg/dL (0.0-0.4) 12/28/19 12:25 Neonat Total Bilirubin Not Reportable 12/28/19 12:25 Neonat Direct Bilirubin Not Reportable 12/28/19 12:25 Neonat Indirect Bili Not Reportable 12/28/19 12:25 AST 22 U/L (14-36) 12/28/19 12:25 ALT 8 U/L (<35) 12/28/19 12:25 Alkaline Phosphatase 92 U/L (38-126) 12/28/19 12:25 Ammonia < 8.7 umol/L (9-33) L 12/28/19 22:02 Creatine Kinase 40 U/L (30-135) 12/27/19 15:24 Troponin I < 0.012 ng/mL 01/04/20 07:00 NT-Pro-B Natriuret Pep 2190 pg/mL (<125) H 12/28/19 12:25 Total Protein 5.7 g/dL (6.3-8.2) L 12/28/19 12:25 Albumin 2.6 g/dL (3.5-5.0) L 12/28/19 12:25 EGFR Cancelled 12/29/19 10:30 TSH 0.74 uIU/mL (0.47-4.68) 12/28/19 15:24 Urine Color MARIO 12/27/19 14:35 Urine Appearance CLOUDY 12/27/19 14:35 Urine pH 5.0 (5.0-9.0) 12/27/19 14:35 Ur Specific [place] 1.018 12/27/19 14:35 Urine Protein 30 mg/dL (NEGATIVE) H 12/27/19 14:35 Urine Glucose (UA) NEGATIVE mg/dL (NEGATIVE) 12/27/19 14:35 Urine Ketones NEGATIVE mg/dL (NEGATIVE) 12/27/19 14:35 Urine Blood NEGATIVE (NEGATIVE) 12/27/19 14:35 Urine Nitrite NEGATIVE (NEGATIVE) 12/27/19 14:35 Urine Bilirubin NEGATIVE (NEGATIVE) 12/27/19 14:35 Urine Urobilinogen NEGATIVE mg/dL (<2.0) 12/27/19 14:35 Ur Leukocyte Esterase MODERATE (NEGATIVE) H 12/27/19 14:35 Urine WBC (Auto) 74 /HPF 12/27/19 14:35 Urine RBC (Auto) 4 /HPF 12/27/19 14:35 U Hyaline Cast (Auto) 68 /LPF 12/27/19 14:35 Urine Bacteria (Auto) 3+ /HPF 12/27/19 14:35 Urine WBC Clumps FEW /HPF 12/27/19 14:35 Squamous Epi Cells Auto <1 /HPF 12/27/19 14:35 Urine Mucus (Auto) RARE /LPF 12/27/19 14:35 Urine Ascorbic Acid 40 (NEGATIVE) H 12/27/19 14:35 Urine Opiates Screen NEGATIVE 12/27/19 14:35 Urine Methadone Screen NEGATIVE 12/27/19 14:35 Ur Barbiturates Screen NEGATIVE 12/27/19 14:35 Ur Phencyclidine Scrn NEGATIVE 12/27/19 14:35 Ur Amphetamines Screen NEGATIVE 12/27/19 14:35 U Benzodiazepines Scrn NEGATIVE 12/27/19 14:35 Urine Cocaine Screen NEGATIVE 12/27/19 14:35 U Marijuana (THC) Screen NEGATIVE 12/27/19 14:35 12/27/19 12/28/19 12/28/19 15:24 12:25 12:25 Troponin I 0.072 0.052 NT-Pro-B Natriuret Pep 2190 H 01/04/20 01/04/20 00:45 07:00 Troponin I < 0.012 < 0.012 NT-Pro-B Natriuret Pep Impressions: Chest X-Ray 12/27/19 14:28 IMPRESSION: Cardiomegaly, low inspiratory lung volumes and hazy bilateral basilar predominant opacities. Clinical correlation for signs and symptoms of volume overload/CHF is recommended. Head CT 12/27/19 14:28 IMPRESSION: 1. No acute intracranial abnormality. 2. Slight to mild incomplete opacification of the mastoid air cells may represent small bilateral mastoid effusions. EVIDENCE OF ACUTE STROKE: NO Head MRI 12/27/19 17:30 IMPRESSION: 1. No abnormal increased signal intensity is present on diffusion-weighted imaging to suggest restricted diffusion/acute infarction. 2. T2/flair weighted imaging reveals multifocal areas of patchy increased signal intensity present in a subcortical and periventricular deep white matter distribution, a nonspecific finding however may be seen with small vessel ischemic change. Chest X-Ray 12/28/19 00:00 IMPRESSION: No discrete radiographic evidence of acute cardiopulmonary abnormality. Persistent cardiomegaly. Renal Ultrasound 12/30/19 00:00 IMPRESSION: The kidneys are normal in size. No hydronephrosis is present. The bladder is not evaluated because of the presence of a catheter. Stroke Is this a Stroke Patient?: No Acute Heart Failure Is this a Heart Failure Patient?: No
[2020-01-04 17:08] VITALS: BP 120/56
[2020-01-04] MEDS: MAGNESIUM OXIDE 400 MG TABLET PO SCH (17:20)
[2020-01-04] MEDS: RIVAROXABAN 10 MG TABLET PO SCH (17:20)
== END 2020-01-04 18:00 | DRG 689 ==
LOC: ER 13:26 → EH 18:03 → OBSVTOIN 18:31 → INTOOBSV 18:31 → EH 23:39 → 3W 12-29 01:12 → 2N 12-30 08:59 → OBSVTOIN 12-30 16:46 → 4N 01-04 05:51
PROVIDERS: ADMIT Internal Medicine; ATTEND Family Medicine
DX: N39.0 Urinary tract infection, site not specified (principal); G92 Toxic encephalopathy; Z68.44 Body mass index [BMI] 60.0-69.9, adult; N17.9 Acute kidney failure, unspecified; T40.425A Adverse effect of tramadol, initial encounter; I89.0 Lymphedema, not elsewhere classified; E66.01 Morbid (severe) obesity due to excess calories; I10 Essential (primary) hypertension; I48.0 Paroxysmal atrial fibrillation; W19.XXXA Unspecified fall, initial encounter; B96.1 Klebsiella pneumoniae [K. pneumoniae] as the cause of diseases classified elsewhere; E11.40 Type 2 diabetes mellitus with diabetic neuropathy, unspecified; R47.81 Slurred speech; Z20.828 Contact with and (suspected) exposure to other viral communicable diseases; Z79.899 Other long term (current) drug therapy; Z79.84 Long term (current) use of oral hypoglycemic drugs; Z79.01 Long term (current) use of anticoagulants; Z79.52 Long term (current) use of systemic steroids; Z88.3 Allergy status to other anti-infective agents; Z88.8 Allergy status to other drugs, medicaments and biological substances; Z91.048 Other nonmedicinal substance allergy status
CPT/HCPCS: 36415; 70450; 70551; 71045; 76775; 80048; 80053; 80307; 81001; 82140; 82550; 82565; 82803; 83605; 83880; 84443; 84484; 85025; 85027; 87040; 87086; 87088; 87186; 93005; 93010; 96374; 96375; 99285; 0241U; C9803; G0378; J0696; J1200; J2405; J2543; J3490; J7030; J7050; J7120; P9047; S0119

== ENCOUNTER → 2020-01-12 | Outpatient (CLI) | payer OTHER, MEDICARE | LOC: SP 10:43 | PROVIDERS: ATTEND Nurse Practitioner Family | DX: E11.621 Type 2 diabetes mellitus with foot ulcer (principal); L97.212 Non-pressure chronic ulcer of right calf with fat layer exposed | CPT/HCPCS: 93922; 93925 ==